=== PATIENT | male | born 1940 | race Caucasian/White ===

== ENCOUNTER → 2024-07-17 11:23 | Outpatient (REF) | payer MEDICARE, OTHER, SELFPAY ==
[2024-07-17 12:08] LABS: % Eosinophils 1.9 % (0-6); % Immature Granulocytes 0.3 % (0-0.5); % Lymphocytes 46.5 % (20.5-51.1); % Monocytes 10.1 % (1.7-9.3); % Neutrophils 40.2 % (42.2-75.2); Absolute Basophils 0.1 10^3/uL (0-0.2); Absolute Eosinophils 0.1 10^3/uL (0-0.7); Absolute Lymphocytes 2.9 10^3/uL (1.2-3.4); Absolute Monocytes 0.6 10^3/uL (0.1-0.6); Absolute Neutrophils 2.5 10^3/uL (1.4-6.5); Hemoglobin 13.7 g/dL (13.0-18.0); Mean Corp Hgb Conc. 33.4 g/dL (33.0-37.0); Mean Corpuscular Volume 83.7 fL (80.0-94.0); Mean Platelet Volume 8.9 fL (7.4-10.4); Nucleated Red Blood Cells % 0 % (-); Platelet Count 308 10^3/uL (130-400); Red Cell Dist. Width 13.6 % (11.5-14.5); White Blood Cell Count 6.2 10^3/uL (4.8-10.8)
[2024-07-17 12:58] LABS: ALT (SGPT) 16 U/L (0-50); AST (SGOT) 23 U/L (17-59); Albumin 4.4 g/dl (3.5-5.0); Alkaline Phosphatase 57 U/L (38-126); Blood Urea Nitrogen 11 mg/dl (9-20); Calcium 9.6 mg/dl (8.4-10.2); Carbon Dioxide 20 mmol/L (22-30); Chloride 98 mmol/L (98-107); Glucose 92 mg/dl (70-99); Iron 133 ug/dl (49-181); Potassium 4.7 mmol/L (3.5-5.1); Sodium 132 mmol/L (135-145); Total Bilirubin 0.9 mg/dl (0.2-1.3); Total Protein 7.4 g/dl (6.3-8.2); eGFR > 60.00
[2024-07-17 13:07] LABS: Percent Saturation 32 % (20-50); Total Iron Binding Capacity 405 ug/dl (261-462)
[2024-07-17 14:39] LABS: Vitamin D, 25-OH*** 13.5 ng/mL (30-80)
[2024-07-17 14:57] LABS: Ferritin 13.1 ng/ml (17.9-464.0)
== END ==
LOC: REG 11:23
PROVIDERS: ATTENDING PHYSICIAN Family Medicine
DX: D50.9 Iron deficiency anemia, unspecified (principal); G30.1 Alzheimer's disease with late onset; K21.9 Gastro-esophageal reflux disease without esophagitis; E55.9 Vitamin D deficiency, unspecified
CPT/HCPCS: 36415; 80053; 82306; 82728; 83540; 83550; 85025

== ENCOUNTER 2024-10-03 19:58 | Inpatient (IN) | payer MEDICARE, OTHER, SELFPAY ==
[2024-10-03 16:49] VITALS: BP 163/84
[2024-10-03 16:53] LABS: Glucose - Point of Care 121 mg/dl (70-99)
--- NOTE | 2024-10-03 16:55 | ED.CVA ---
History of Present Illness
General
Chief Complaint: CVA/TIA Symptoms
Source: ambulance crew
Exam Limitations: clinical condition and altered mental status
Time Seen by Provider: 10/03/24 16:50
Onset of Stroke Symptoms
Onset of symptoms known: No
Date of onset of symptoms: 10/03/24
Time pt last seen normal is known: Yes
Date last time pt seen normal: 10/03/24
Time last time pt seen normal: 14:00
History of Present Illness
History of Present Illness:
84-year-old male with dementia from [facility] apparently went down for nap around 2 PM woke up with right sided weakness and gaze preference, EMS was called for possible stroke they found him in a tonic-clonic seizure for 3 to 4 minutes given 5 mg of
IM Versed, stop seizing my evaluation sedated/postictal unable to offer much history
Review of Systems
Review of Systems
All Other Systems: Not applicable
Phy Exam
Physical Exam
Physical Exam:
Physical Exam
General: Sedated/postictal no overt signs of head or neck trauma
Neck: No jaundice
Heart: Regular
Lungs: no acute respiratory distress. clear bilaterally
Abdomen: Nontender
Neuro: Sedate/postictal does not localize to painful state
Skin: no rash
Psychiatric: Unable to assess
Extremities: no edema.
Course
Orders/Labs/Results
Orders:
Orders
10/03/24 16:49
EKG [Electrocardiogram (*1)] Urgent
Reason for Study: Hypertension, Benign
EKG- Treatment ONCE
10/03/24 16:50
Electrocardiogram (*1) Stat
Reason for Study: Other
Other Reason for Exam: neuro symptoms
CT Head & Neck Angio W/wo IV Urgent
Comment:
Reason For Exam: cva seizure
Cardiac Monitoring- Treatment ONCE
EKG- Treatment ONCE
IV Insert/Care/Rem.- Treatment PRN
Levetiracetam Injectable [Keppra] 1,500 mg IV NOW STA
10/03/24 16:51
CR Chest Portable - 1 View Urgent
Comment:
Reason For Exam: seizrue
Reason Study Needs to be Portable: Patient Unstable
10/03/24 17:00
Complete Blood Count/With Diff Urgent
Comprehensive Metabolic Panel Urgent
PTT Urgent
Prothrombin Time Urgent
10/03/24 17:36
ABG [Arterial Blood Gas] Urgent
%Oxygen/Room Air: 4
10/03/24 17:52
CT Brain Perfusion Urgent
Comment:
Reason For Exam: right sided weakness
Abnormal Lab Results
10/03/24 10/03/24 10/03/24
16:52 17:00 17:36
WBC 10.9 H 10^3/uL
(4.8-10.8)
MCH 26.9 L pg
(27.0-31.0)
MCHC 32.1 L g/dL
(33.0-37.0)
Abs Immat Gran (auto) 0.2 H 10^3/uL
(0-0.05)
Absolute Lymphs (auto) 4.9 H 10^3/uL
(1.2-3.4)
Absolute Monos (auto) 0.9 H 10^3/uL
(0.1-0.6)
Immature Gran % 1.5 H %
(0-0.5)
pH 7.24 L
(7.35-7.45)
pCO2 49 H mmHg
(35-48)
pO2 113 H mmHg
(83-108)
ABG O2 Sat (Measured) 98.7 H %
(94-98)
Sodium 132 L mmol/L
(135-145)
Carbon Dioxide 10 L* mmol/L
(22-30)
Glucose 119 H mg/dl
(70-99)
POC Glucose 121 H mg/dl
(70-99)
10/03/24 17:00
10/03/24 17:00
Vital Signs
Initial and Last Documented VS:
Initial Vital Signs
Temp Pulse Resp BP Pulse Ox
98.5 F 98 14 163/84 88
10/03/24 16:49 10/03/24 16:49 10/03/24 16:49 10/03/24 16:49 10/03/24 16:49
Last Documented Vital Signs
Temp Pulse Resp BP Pulse Ox
98.5 F 79 20 131/70 98
10/03/24 16:49 10/03/24 17:30 10/03/24 17:30 10/03/24 17:30 10/03/24 16:50
MDM/Problems Addressed
Differential Diagnosis Includes:
New onset seizure stroke intracerebral hemorrhage malignancy electrolyte abnormality
MDM/Problems Addressed:
Seizure right arm weakness
Chronic conditions affecting care: Neurological disorder
Acute Exacerbation and/or Progression of Chronic Illness: Neurological disorder
*Radiology
Radiology exam reviewed: radiology read reviewed
*Pulse Oximetry
Patient hypoxic: no
*EKG
Interpreted by ED Provider?: Yes
Interpretation: normal
Comparison EKG: no comparison EKG present
Heart Rate: 78
Rate: normal
Ischemia: no ischemia
*Marine Cargo Specialist Interpretation
Rate: normal
Interpretation: normal
Heart Rate: 78
Rhythm: sinus
*Critical Care Note
Total Time (30-74mins, 75-104mins- exclusive of procedures): 31
Update Note
Update Note:
5:50 PM patient reevaluated bedside with his somewhat more awake does appear to have right-sided weakness left gaze preference CT head and CT angiogram unremarkable briefly reviewed with neurology, will proceed with CT perfusion as he may be
a candidate for TNK
ED Attending Note
-
Portions of this chart may have been created with voice recognition software.� Occasional wrong word or��sound alike� substitutions may have occurred due to the inherent limitations of voice recognition software.
Discharge Plan
Departure
Prescriptions:
No Action
rivastigmine tartrate 1.5 mg Capsule
1.5 mg PO BID
sertraline 100 mg Tablet
100 mg PO QPM
pantoprazole 40 mg Tablet,Delayed Release (Dr/Ec)
40 mg PO QPM
risperidone 1 mg Tablet
0.5 mg PO QPM
memantine 28 mg Capsule,Sprinkle,Er 24hr
28 mg PO QPM
pantoprazole [Protonix] 40 mg Tablet,Delayed Release (Dr/Ec)
40 mg PO DAILY
Referrals:
Sachin Duncan DO [Family Provider] -
Interventions
Interventions:
*Risk Screen - Suicide Last Done: 10/03/24 16:49
*General Assessment Last Done: 10/03/24 16:49
*Neglect/Abuse Screening Last Done: 10/03/24 16:49
*ED COVID-19 Vaccine History Last Done: 10/03/24 17:46
ED- Pulmonary Assessment Last Done: 10/03/24 16:50
ED- Neurological Assessment Last Done: 10/03/24 16:50
ED- Cardiac Assessment Last Done: 10/03/24 16:50
ED Swallowing Screen Last Done: 10/03/24 16:50
Discharge Date and Time
Print Language: ALGERIAN
[2024-10-03 17:00] VITALS: BP 133/70
[2024-10-03] MEDS: KEPPRA 1500 MG IV (17:01)
[2024-10-03 17:08] LABS: % Eosinophils 0.8 % (0-6); % Immature Granulocytes 1.5 % (0-0.5); % Lymphocytes 45.2 % (20.5-51.1); % Neutrophils 43.5 % (42.2-75.2); Absolute Basophils 0.1 10^3/uL (0-0.2); Absolute Eosinophils 0.1 10^3/uL (0-0.7); Absolute Immature Granulocytes 0.2 10^3/uL (0-0.05); Absolute Lymphocytes 4.9 10^3/uL (1.2-3.4); Absolute Monocytes 0.9 10^3/uL (0.1-0.6); Absolute Neutrophils 4.7 10^3/uL (1.4-6.5); Hemoglobin 13.8 g/dL (13.0-18.0); Mean Corp Hgb Conc. 32.1 g/dL (33.0-37.0); Mean Corpuscular Hgb 26.9 pg (27.0-31.0); Mean Corpuscular Volume 83.8 fL (80.0-94.0); Mean Platelet Volume 9.2 fL (7.4-10.4); Nucleated Red Blood Cells % 0 % (-); Platelet Count 382 10^3/uL (130-400); Red Blood Cell Count 5.13 10^6/uL (4.70-6.10); Red Cell Dist. Width 13.8 % (11.5-14.5); White Blood Cell Count 10.9 10^3/uL (4.8-10.8)
[2024-10-03 17:15] VITALS: BP 131/71
[2024-10-03 17:16] LABS: INR 1.09; PT 14.4 Sec (11.4-14.6)
[2024-10-03 17:17] LABS: APTT 29.7 Sec (23.4-35.0)
[2024-10-03 17:30] VITALS: BP 131/70
[2024-10-03 17:36] LABS: AST (SGOT) 31 U/L (17-59); Albumin 4.7 g/dl (3.5-5.0); Alkaline Phosphatase 81 U/L (38-126); Blood Urea Nitrogen 11 mg/dl (9-20); Calcium 9.6 mg/dl (8.4-10.2); Carbon Dioxide 10 mmol/L (22-30); Chloride 99 mmol/L (98-107); Glucose 119 mg/dl (70-99); Potassium 4.4 mmol/L (3.5-5.1); Sodium 132 mmol/L (135-145); Total Bilirubin 0.7 mg/dl (0.2-1.3); Total Protein 8.2 g/dl (6.3-8.2); eGFR > 60.00
[2024-10-03 17:47] LABS: B.E. -6.5 mmol/L; O2 Saturation % 98.7 % (94-98); PCO2 49 mmHg (35-48); PO2 113 mmHg (83-108); pH 7.24 (7.35-7.45)
[2024-10-03 18:01] LABS: ALT (SGPT) 21 U/L (0-50)
--- NOTE | 2024-10-03 19:21 | HPS.HSE ---
Family Physician
-
Family Physician: Sachin Duncan, DO
Chief Complaint
-
seizure
History of Present Illness
84-year-old male past medical history of Alzheimer's, GERD, hiatal hernia, BPH, iron deficiency anemia, diverticulitis, presenting from [facility] for seizure. He went for a nap at 2 PM woke up with right-sided weakness and gaze preference. [facility] was
called for possible stroke and they found him to have a tonic-clonic seizure for 3 to 4 minutes was given 5 mg IM Versed.
No prior history of seizures. No prior history of strokes.
No family history of strokes or seizures.
Medical History
Past Medical History
Past Medical History: Reports Other (Alzheimer's, GERD, hiatal hernia, BPH, iron deficiency anemia, diverticulitis)
Past Surgical History: Reports None
Social History
Tobacco: Non-smoker
Alcohol: None
Drug: None
Family History
Family History: Not pertinent
Allergies / Home Medications
Allergies reflects when Allergies were last updated in [employer]
Home Medications with original date entered in [employer]
Allergy/Medication List:
Allergies
Allergy/AdvReac Type Severity Reaction Status Date / Time
tetracycline Allergy Rash Verified 09/13/23 06:39
Home Medications
memantine 28 mg capsule sprinkle,extended release 24hr 28 mg PO QPM Alzhemimer's dementia 06/25/23
pantoprazole 40 mg tablet,delayed release 40 mg PO QPM GERD 06/25/23
risperidone 1 mg tablet 0.5 mg PO QPM Alzhemimer's dementia 06/25/23
rivastigmine tartrate 1.5 mg capsule 1.5 mg PO BID Alzhemimer's dementia 06/25/23
sertraline 100 mg tablet 100 mg PO QPM Alzhemimer's dementia 06/25/23
pantoprazole 40 mg tablet,delayed release (Protonix) 40 mg PO DAILY 10/03/24
Review of Systems
-
History Source: Patient
A 12 point ROS was completed and negative except as noted: Yes
Constitutional: Reports No Symptoms
EENT: Reports No Symptoms
Respiratory: Reports No Symptoms
Cardiac: Reports No Symptoms
Abdomen/GI: Reports No Symptoms
: Reports No Symptoms
Musculoskeletal: Reports No Symptoms
Skin: Reports No Symptoms
Neurological: Reports No Symptoms
Endocrine: Reports No Symptoms
Hematologic/Lymphatic: Reports No Symptoms
Psych: Reports No Symptoms
Physical Exam
Vital Signs
Vital Signs
Temp Pulse Resp BP Pulse Ox
98.5 F 79 20 131/70 98
10/03/24 16:49 10/03/24 17:30 10/03/24 17:30 10/03/24 17:30 10/03/24 16:50
Physical Exam
General: Well Developed, Well Nourished and No Apparent Distress
HEENT: NormoCephalic, Moist mucous membranes and Atraumatic
Respiratory: Clear
Cardiac: S1/S2 and Regular Rhythm; No Murmur or Rub
GI: Soft, Non Tender, Non Distended and Normal Bowel Sounds; No Organomegaly
Rectal: Deferred by Provider
Musculoskeletal: No Clubbing, No Cyanosis and No Edema
Skin: No Rash
Neuro: Nonfocal/grossly intact
Laboratory Results
-
10/03/24 17:00
10/03/24 17:00
Laboratory Results
PT 14.4 Sec (11.4-14.6) 10/03/24 17:00
INR 1.09 10/03/24 17:00
APTT 29.7 Sec (23.4-35.0) 10/03/24 17:00
pH 7.24 (7.35-7.45) L 10/03/24 17:36
pCO2 49 mmHg (35-48) H 10/03/24 17:36
pO2 113 mmHg (83-108) H 10/03/24 17:36
HCO3 21.0 mmol/L (21-28) 10/03/24 17:36
Total Bilirubin 0.7 mg/dl (0.2-1.3) 10/03/24 17:00
AST 31 U/L (17-59) 10/03/24 17:00
ALT 21 U/L (0-50) 10/03/24 17:00
Alkaline Phosphatase 81 U/L (38-126) 10/03/24 17:00
Data Reviewed
-
Lab Data: Labs Reviewed by me
Old Records: Reviewed
Impression/Plan
-
IMPRESSION:
PLAN:
# Seizure
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
-Currently postictal but improving mental status
-Right side appears
-CTA shows no acute intracranial abnormality
-Keppra 1500 milligrams given, continue 500 twice daily
-Aspirin and Plavix
-Check MRI brain
-Neurology consulted
-N.p.o. for now
# Anion gap metabolic acidosis likely secondary to lactic acidosis from seizure
-Check lactate
-IV fluids
Alzheimer's dementia
-Continue memantine, rivastigmine, sertraline, Risperdal when able
-Hold rivastigmine, Risperdal for now
GERD/hiatal hernia
-Continue Protonix when able
BPH
Iron deficiency anemia
History of diverticulitis
DNR/DNI
DVT prophylaxis�SCDs
N.p.o.
[2024-10-03] MEDS: ASPIRIN 300 MG RECTAL (19:44)
--- NOTE | 2024-10-03 21:00 | PTCARENOTE ---
Pt admitted to rm 318-1 from ED. NIH score 15 upon admission. Responding verbally, however still aphasic (saying 'yes' and 'ok' in response but not always at appropriate times). Eyes tracking people on R side. Moving R arm spontaneously, however
still very weak. VSS. Tele in place, SR on monitor. EKG completed. IVF started as ordered. Owen present for admission and answered admission questions. Informed of POC and verbalized understanding.
[2024-10-03 21:30] VITALS: BP 153/88
[2024-10-03 23:00] VITALS: BP 153/88
[2024-10-03] MEDS: NSS 1000 IV (23:51)
[2024-10-03] MEDS: KEPPRA 500 MG IV (23:52)
[2024-10-04 03:00] VITALS: BP 135/65
[2024-10-04 06:08] VITALS: BP 163/68
--- NOTE | 2024-10-04 06:21 | W.PN.UPDATE ---
Update Note
Progress Note Update
Notified by nurse that pt rolled oob onto floor.
Pt does states he hit head. Pt admitted last jasmin for r/o cva vs seizure.
Actually per RN neuro check better than previous assessment. Still aphasic but now moving r arm better than before.
With help of myself and 2 nurses pt lifted back to bed. No other injuries noted.
Will get Ct head, continue neurochecks, if any changes in neurostatus will repeat ct head later
--- NOTE | 2024-10-04 06:30 | PTCARENOTE ---
Pt rolled out of bed on to floor on R side of bed. VSS. Neurocheck baseline, if not improved - pupils PERRLA, responding confused, moving R arm spontaneously. ASSEMBLING MACHINE OPERATOR notified of fall, pt did hit head, ordered stat CT. Pt assisted back to bed with 3
staff members and brought down to CT on stretcher. updated of events as well.
[2024-10-04 06:41] LABS: % Basophils 0.6 % (0-2); % Eosinophils 0.1 % (0-6); % Immature Granulocytes 0.5 % (0-0.5); % Lymphocytes 26.4 % (20.5-51.1); % Monocytes 11.2 % (1.7-9.3); % Neutrophils 61.2 % (42.2-75.2); Absolute Basophils 0.1 10^3/uL (0-0.2); Absolute Immature Granulocytes 0.1 10^3/uL (0-0.05); Absolute Lymphocytes 2.8 10^3/uL (1.2-3.4); Absolute Monocytes 1.2 10^3/uL (0.1-0.6); Absolute Neutrophils 6.4 10^3/uL (1.4-6.5); Hemoglobin 12.5 g/dL (13.0-18.0); Mean Corp Hgb Conc. 33.8 g/dL (33.0-37.0); Mean Corpuscular Hgb 27.2 pg (27.0-31.0); Mean Corpuscular Volume 80.4 fL (80.0-94.0); Mean Platelet Volume 9.1 fL (7.4-10.4); Nucleated Red Blood Cells % 0 % (-); Platelet Count 333 10^3/uL (130-400); Red Cell Dist. Width 13.7 % (11.5-14.5); White Blood Cell Count 10.5 10^3/uL (4.8-10.8)
[2024-10-04 06:47] LABS: Lactic Acid 1.1 mmol/L (0.7-2.0)
[2024-10-04 07:57] LABS: ALT (SGPT) 16 U/L (0-50); AST (SGOT) 28 U/L (17-59); Albumin 4.2 g/dl (3.5-5.0); Alkaline Phosphatase 73 U/L (38-126); Blood Urea Nitrogen 10 mg/dl (9-20); Calcium 8.9 mg/dl (8.4-10.2); Carbon Dioxide 21 mmol/L (22-30); Chloride 99 mmol/L (98-107); Glucose 96 mg/dl (70-99); Potassium 4.4 mmol/L (3.5-5.1); Sodium 130 mmol/L (135-145); Total Protein 6.9 g/dl (6.3-8.2); eGFR > 60.00
--- NOTE | 2024-10-04 08:16 | CON.NEURO ---
Neuro Assessment/Plan
Assessment
Abrupt onset aphasia and generalized tonic-clonic shaking in a patient with longstanding Alzheimer's dementia
Differential diagnosis based on the patient's examination suggesting continued worsening of baseline aphasia and suggested weakness in the right upper extremity greater than right lower extremity is acute ischemic stroke involving the left MCA
territory despite CT perfusion not demonstrating same. Differential diagnosis includes Dane's paralysis secondary to recurrent focal onset generalizing seizures.
Plan
Would replace the patient's levetiracetam with alternative medication due to possibility of agitation with the use of this medication should the patient demonstrate worsening agitation
Agree with initiation of aspirin and clopidogrel, maintain both for 21 days, then aspirin alone should the MRI of the brain confirmed acute ischemic stroke; otherwise discontinue both
Check MRI of brain without contrast
Provide lorazepam prior to MRI of brain
Check lipid profile
Check EEG to better determine if the patient is having recurrent seizures
Continue levetiracetam 500 mg twice a day
Continue patient's usual rivastigmine 1.5 mg twice a day
For now continue patient's memantine 28 mg nightly
Continue sertraline 100 mg/day for now
Rehabilitation evaluations
Medical educational materials to be provided
Restart vitamin D replacement
Will follow
Consultation
Order
Date of Consultation: 10/04/24
Requesting Provider: Hospitalists
Reason for Consult: Seizure
Subjective/Objective
Subjective Data
Date of Service: October 04, 2024
Adapted from my outpatient notes:
'05/2024
Reduced Risperdal from 1 mg to 0.5 at bedtime (watch for sleepiness)
12/2021
Occasional delusions
Memory even worse
Worsening inactivity
Memantine 10 mg twice a day to 28 mg once a day
Prior evaluation: presentation to PCP
Previous testing: blood work, MRI of brain in 06/2019, [employer] cognitive testing (02/2021, 77%)
Prior medication(s): OTC supplements (2019), Donepezil, Memantine, Rivastigmine; Quetiapine, Sertaline
Side-effects with medications: Donepezil, Quetiapine
Previous treatment(s): none
Frequency: multiple times per day --> minutes
Intensity: N/A
Duration: chronic ~ 06/2019
Duration of symptom: intermittent
Etiology: presumed Alzheimer's disease, moderately severe
Associated symptom(s): incorrect recall (false memory), short-term recall, irritability, lack of interest in prior interests, decline in financial ability, lost while driving, compulsive thoughts, mild agitation since 03/2024
Improving factors: Quetiapine
Worsening factors: later in day
Unchanged by factors: Rivastigmine
Severity: significant
~~~
Pattern:
'improved memory' according to patient
completed [employer] cognitive testing
lost for 1 hour while driving
Began (prior to initial evaluation in this office):
Started OTC supplements 12 months ago (2018)
Recall issues began 3-4 months ago (07/2019)
started on Donepezil by PCP then decline in mood then stopped then return of normal mood
'Dr. Demarco says that the results just show a senior brain.'
Followed by: presentation to this office
>> 01/2020
Started Memantine, some agitation in past month
Episodic 'spaced out' appearance with delay for response
>> 04/2020
Mild irritation
False memories intermittently
Worsening in evening
Repetitive questions
Lost while driving immediately prior to last visit
>> 07/2020
unable to tolerate increase in Rivastigmine
'went to [place] to visit' at [facility] then had agitation and hallucination during visit with repetitive thoughts and irritation
Started on Quetiapine 1 night ago without side-effects, didn't wander
>> 10/2020
stopped Quetiapine due to worsening agitation, replaced with Sertraline
all consuming thought
>> Today (01/06/2021)
Pt seen in the office today with his partner. He and his report that since his last appointment his hallucinations are much improved. As suggested they increased Sertraline to 100 mg, continued Namenda at 10 mg and started Risperdal 1 mg at
night. Episodes are less intense, less frequent and shorter. He has had no adverse effects of medications. Memory seems to be stable. He has no difficulty with sleeping. No recent falls. No headaches. No new complaints. With , patient less
information provider than .
>> 'improved memory' according to patient
completed [employer] cognitive testing
lost for 1 hour while driving
>> 03/2021
underwent new [employer] testing
increased lethargy and reduced agitation
>> 05/2021
Unable to titrate Rivastigmine, leading to dizziness and visual changes
Only twice had delusions
Worsening recall
Excessive sleepiness
>> With our RN PERINATAL (07/24/2021)
Patient seen in the office with his partner. He did not tolerate the reduction in sertraline. He became very agitated. He refused to use the rivastigmine patch. So partner continued Rivastigmine capsule 1.5 mg BID and restarted sertraline 100 mg. He
is stable but memory has continued to decline. He continues on Risperdal 1 mg at night. He has no recent falls.
>> 08/2021
Stable behavior
Delusions are milder and shorter in duration
Worsening memory overall, unable to recall prior day's events.'
Patient was reportedly in his usual state of health until after awakening from a nap, yesterday, he had right-sided weakness and gaze preference. The patient had a generalized tonic-clonic movement lasting approximately 3 minutes. There was no
bowel or bladder incontinence. No known tongue biting at the time. The patient has remained aphasic since that time. The patient otherwise was not experiencing aphasia and had been in his usual state of health without new medical changes recently.
Objective Data
Vital Signs
Temp Pulse Resp BP Pulse Ox
36.9 C 77 18 163/68 98
10/04/24 06:08 10/04/24 06:08 10/04/24 06:08 10/04/24 06:08 10/04/24 06:08
Lab Results
10/04/24 06:27
10/04/24 06:27
PT 14.4 Sec (11.4-14.6) 10/03/24 17:00
INR 1.09 10/03/24 17:00
APTT 29.7 Sec (23.4-35.0) 10/03/24 17:00
Sodium 130 mmol/L (135-145) L 10/04/24 06:27
Potassium 4.4 mmol/L (3.5-5.1) 10/04/24 06:27
BUN 10 mg/dl (9-20) 10/04/24 06:27
Glucose 96 mg/dl (70-99) 10/04/24 06:27
Calcium 8.9 mg/dl (8.4-10.2) 10/04/24 06:27
Patient Allergies
tetracycline Allergy (Verified 09/13/23 06:39)
Rash
Review of Systems
-
Unable to obtain full review of systems at this time due to: Dementia and Aphasia
History Source: Patient
All other systems: Reviewed and negative
Physical Exam
-
General: No Apparent Distress and Appears Stated Age
Eyes: Able to visualize OU, Round OU, [place] Conjunctivae and No Ptosis
HEENT: Anicteric and Moist Mucous Membranes
Neck: Full Range of Motion
Respiratory: No Dyspnea
Cardiac: No JVD
GI: Non-distended
Skin: Unremarkable
Extremities: No Clubbing, No Cyanosis and No Edema
Psych: Negative Intact Judgement/Insight
Extended Neurological Exam
Mood & Affect: Mood Unremarkable and Affect Unremarkable
Attention Span & Concentration: Awake, Alert, Interactive (Intermittently interactive), Unable to Perform 2 Step Request and Other (No difficulty with single step requests, when understood)
Memory: Unable to Assess (Due to aphasia)
Tremor: Hand Tremor Absent and Head Tremor Absent
Involuntary Movement: None
Speech: Quality Unremarkable, Severely Reduced Output and Other (Some preserved phrases, words produce which are not always associated with context)
Cranial Nerve II: Left Eye: Pupillary Reactivity Unremarkable, Pupillary Size Unremarkable and Visual Sorensen Grossly Intact
Cranial Nerve II: Right Eye: Pupillary Reactivity Unremarkable, Pupillary Size Unremarkable and Visual Sorensen Grossly Intact
Cranial Nerves III, IV, : Extraocular Movement: Grossly Intact
Cranial Nerve V: Facial Sensation: Unable to Assess
Cranial Nerve VII: Facial Symmetry: Normal Facial Symmetry
Cranial Nerve VIII: Hearing: Unremarkable Hearing to Normal Conversational Volume
Cranial Nerves IX, X: Palate Movement: Palate Elevation Symmetric
Cranial Nerve XI: Shoulder Shrug: Unremarkable
Cranial Nerve XII: Tongue Protusion: Midline
Muscle Strength, Overall: Full Throughout
Muscle Bulk & Tone: Bulk Unremarkable and Tone Unremarkable
Pronator Drift: Unable to Assess
Deep Tendon Reflexes: Trace Throughout
Cold Sensation: Unable to Assess
Vibration Sensation: Unable to Assess
Touch Sensation: Unremarkable
Coordination: Reaches for Objects without Difficulty
Babinski Sign: Absent Bilaterally
Gait & Station: Unable to Assess
Data Reviewed
-
CT-A: Report Reviewed
CT-Perfusion: Report Reviewed
CT Head: Report Reviewed and Image Reviewed
Labs: Report Reviewed
Reviewed with: Physician, Patient and Family
Old Records: Summarized
Medications
-
Active Medications
Generic Name Dose Route Start Last Admin
Trade Name Freq PRN Reason Stop Dose Admin
Sodium Chloride 1,000 mls @ 100 mls/hr 10/03/24 22:13 10/03/24 23:51
Nss IV 1,000 mls
.Q10H RAY Administration
Levetiracetam 500 mg 10/03/24 22:13 10/03/24 23:52
Levetiracetam (100 Mg/Ml) 500 Mg/5 Ml Vial IV 10/31/24 22:12 500 mg
Q12 RAY Administration
Non-Formulary Medication 28 mg 10/04/24 18:00
Memantine PO 11/01/24 17:59
QPM RAY
Pantoprazole Sodium 40 mg 10/04/24 18:00
Pantoprazole 40 Mg Delayed Release Tablet PO 11/01/24 17:59
BID@0800,1800 RAY
Sertraline HCl 100 mg 10/04/24 18:00
Sertraline 100 Mg Tablet PO 11/01/24 17:59
QPM RAY
Sodium Chloride 0 flush 10/03/24 23:00
Sodium Chloride 0.9% (Flush) Syringe IV 10/31/24 22:59
PER PROTOCOL RAY
Home Medications
�Medication �Instructions �Recorded
memantine 28 mg capsule 28 mg PO QPM Alzhemimer's dementia 06/25/23
sprinkle,extended release 24hr
pantoprazole 40 mg tablet,delayed 40 mg PO QPM GERD 06/25/23
release
risperidone 1 mg tablet 0.5 mg PO QPM Alzhemimer's dementia 06/25/23
rivastigmine tartrate 1.5 mg 1.5 mg PO BID Alzhemimer's dementia 06/25/23
capsule
sertraline 100 mg tablet 100 mg PO QPM Alzhemimer's dementia 06/25/23
pantoprazole 40 mg tablet,delayed 40 mg PO DAILY Gastrointestinal 10/03/24
release (Protonix) Issue
Past History
Past History
ED Past Medical History: GERD and Other (Dementia, erectile dysfunction, BPH, iron deficiency anemia, vitamin D deficiency, diverticulosis, colovesical fistula)
ED Past Surgical History: Other (Inguinal herniorrhaphy, left hydrocelectomy, sigmoidectomy 2023)
Social History
Tobacco: Non-smoker
Alcohol: Occasional
Drug: None
Personal:
Living: with family
Employment: Retired
Family History
Family History: Other (Reviewed and noncontributory)
[2024-10-04 08:30] VITALS: BP 130/63
[2024-10-04] MEDS: KEPPRA 500 MG IV ×2 (08:50→20:33)
[2024-10-04] MEDS: NSS 1000 IV ×2 (08:50→17:26)
[2024-10-04] MEDS: ATIVAN 1 MG IV (11:03)
[2024-10-04 11:47] LABS: HDL Cholesterol 61 mg/dl; LDL Cholesterol, Calculated 89 mg/dl; Total Cholesterol 172 mg/dl (50-199); Triglyceride 111 mg/dl (10-149); Very Low Density Lipoprotein 22 mg/dl (0-30)
--- NOTE | 2024-10-04 13:48 | W.PN.HOSP.TC ---
Today's Communication/Plan
-
Follow MRI of the brain
Follow speech therapy eval-start on a diet once cleared
Continue with Keppra and dual antiplatelet agents for now.
Assessment / Plan
Assessment / Plan
# New onset Seizure
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
-Currently with improved mental status but is aphasic and has a right-sided weakness
-CTA shows no acute intracranial abnormality
-cw Keppra 500 twice daily
-cw Aspirin and Plavix till MRI brain is back
-Check MRI brain
-Neurology input noted
-N.p.o. till seen by speech
# Anion gap metabolic acidosis likely secondary from seizure
- lactate ok
- Almost resolved
# Hyponatremia -Euvolemic
Check urine lytes
TSH/Cortisol
Mild in nature -follow for now
Alzheimer's dementia
-Continue memantine, rivastigmine, sertraline, Risperdal when able
-Hold rivastigmine, Risperdal for now
GERD/hiatal hernia
-Continue Protonix when able
BPH
Iron deficiency anemia
History of diverticulitis
DNR/DNI
DVT prophylaxis�SCDs
N.p.o.
DW RN
DW Neuro today
Total time spent on today's encounter was 52 minutes which included time spent in counseling the patient/family regarding diagnosis and treatment plan as listed above, goals of care, and symptom management. Case was discussed with nursing staff,
specialists, and care coordinators/case management. All labs and imaging personally reviewed by me. Remainder the time spent in detailed review of previous records, lab data, imaging, and other medical provider documentation.
Anticipated Discharge: > 48 hours
Subjective/Interval History
-
Date of Service: October 04, 2024
Patient is alert but aphasic.
Still having right-sided weakness.
No further seizures witnessed.
Objective Data
-
Labs:
Laboratory Results
10/04/24
06:27
WBC 10.5
Hgb 12.5 L
Hct 37.0 L
Plt Count 333
Sodium 130 L
Potassium 4.4
Chloride 99
Carbon Dioxide 21 L
BUN 10
Creatinine 0.6 L
Glucose 96
Calcium 8.9
Total Bilirubin 1.0
AST 28
ALT 16
Alkaline Phosphatase 73
Vital Signs:
Vital Signs
Temp Pulse Resp BP Pulse Ox
97.8 F 61 18 130/63 98
10/04/24 08:30 10/04/24 08:30 10/04/24 08:30 10/04/24 08:30 10/04/24 08:30
Review of Systems
-
Unable to obtain full review of systems at this time due to: Other (due to expressive aphasia)
Physical Exam
-
General: Comfortable
Respiratory: Clear to Auscultation and Non Labored Respirations; Negative Accessory Resp Muscle Use
Cardiac: Regular Rhythm and S1/S2; Negative Tachycardic
GI: Soft
Neuro: Awake, Alert, No Motor Deficits (Right hemiparesis arm more than the leg) and Other (Expressive aphasia)
Psych: Calm
Data Reviewed
-
Labs: Labs Reviewed by me
--- NOTE | 2024-10-04 14:59 | CM ---
Met with patient's spouse, Owen to obtain information for assessment. He stated that patient lives with him in the [facility]. He described patient as independent with all ADLs, personal care, dressing and bathing. He
ambulates independently without device. 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 Owen stated that patient has fci memory but short term has been a struggle.
Patient has no DME.
He has never been to a SNF or had VN services.
Patient has a prescription plan and uses, [facility] in [place] for all of his medications.
His PCP is, Sachin Duncan.
Patient's spouse is agreeable to SNF if indicated. Or VN. Will advise him of medical staff's indication.
Plan: Case management will continue to follow and assist with discharge planning. SNF vrs VN.
--- NOTE | 2024-10-04 16:12 | PTOTSP ---
Speech therapy
Presentation: Patient's speech was limited and consisted of mainly jargon. Patient was able to clearly stated his first name and . Patient could not follow commands; despite ample cues and assistance. Patient appeared to gaze to the right often
throughout the session.
Swallowing Function: SALSA DANCE INSTRUCTOR attempted ample times to trial thins and puree via tsp in which patient refused to accept trials. Patient opened his oral cavity for an ice chip but immediately closed his mouth refusing to trial ice chip. SALSA DANCE INSTRUCTOR used verbal,
tactile, and stimulating cues in hopes to probe patient to accept the bolus trial. Patient was unable to follow commands.
Given the above, recommend NPO at this time as patient is not appropriate for PO at this time. Once patient's alertness and ability to follow commands, trial PO.
Recommendations:
1) NPO
2) Medications as tolerated
Plan: SALSA DANCE INSTRUCTOR will continue to follow to trial PO; pending hospitalization.
[2024-10-04] MEDS: ZOLOFT PO (16:17)
[2024-10-04] MEDS: PROTONIX PO (16:17)
[2024-10-04] MEDS: EXELON PO ×2 (16:17→20:33)
[2024-10-04 16:21] VITALS: BP 137/62
[2024-10-04 19:05] VITALS: BP 151/64
[2024-10-04] MEDS: RISPERDAL M-TAB (ORALLY DISINTEGRATING) 0.5 MG PO (22:56)
[2024-10-04] MEDS: TYLENOL/FEVERALL 650 MG RECTAL (22:57)
[2024-10-04 23:03] VITALS: BP 153/63
[2024-10-05] VITALS (8 sets, daily range): BP systolic 141–163; BP diastolic 68–84; PULSE 64; O2SAT 98
--- NOTE | 2024-10-05 02:45 | PTCARENOTE ---
Patient increasingly restless, attempting to get OOB. House COGNOS ANALYST notified, bilateral soft limb restraints/ 4 rails ordered and applied.
[2024-10-05] MEDS: ATIVAN 0.5 MG IV (03:31)
[2024-10-05] MEDS: NSS (PRESERVATIVE FREE) 0.5 ML IV (03:32)
--- NOTE | 2024-10-05 03:32 | PTCARENOTE ---
IV Ativan administered for increasing agitation and restlessness.
[2024-10-05] MEDS: NSS IV (06:05)
[2024-10-05 08:11] LABS: Blood Urea Nitrogen 15 mg/dl (9-20); Calcium 8.5 mg/dl (8.4-10.2); Carbon Dioxide 22 mmol/L (22-30); Chloride 105 mmol/L (98-107); Glucose 84 mg/dl (70-99); Potassium 4.1 mmol/L (3.5-5.1); Sodium 132 mmol/L (135-145); eGFR > 60.00
[2024-10-05] MEDS: VITAMIN D3 (cholecalciferol) PO (08:37)
[2024-10-05] MEDS: EXELON PO (08:37)
[2024-10-05] MEDS: PROTONIX PO (08:37)
[2024-10-05] MEDS: KEPPRA 500 MG IV (08:37)
[2024-10-05 08:42] LABS: Cortisol, Random 5.5 ug/dl; TSH 0.97 uIU/ml (0.47-4.68)
--- NOTE | 2024-10-05 09:14 | EEG.RPT ---
Electroencephalogram Report
Recording
Date of EE10/05/24
Type of EEG: Routine
Done with Video Recording: Yes
Patient Status: Inpatient
Recording Conditions: Awake and Drowsy
Hyperventilation Performed: No
Photic Stimulation Performed: Yes
Report
Background: continuous generalized slowing, polymorphic theta activity. +spontaneous variability. +reactivity.
Sleep: none
focal/rhythmic/epileptiform: none
seizures: none
Photic stim: no background change
Impression: continuous generalized slowing
Clinical correlation: mild generalized cerebral dysfunction
--- NOTE | 2024-10-05 09:52 | PTOTSP ---
Dysphagia Therapy
Impression: Moderate oral dysphagia impacted by acute cognitive changes. No signs of pharyngeal dysphagia. Communication significantly impaired with perseverative verbal responses and no auditory command following. Baseline unknown but reportedly
in independent living at [facility] with history of dementia.
Plan of care:
1. Initiate IDDSI Level 4 Puree, Thin diet
2. Strategies: PO only when awake/alert, 1:1 supervision/assistance, single sips/bites, slow rate, liquid wash as needed, reflux precautions
3. Medications: crushed in puree if medically cleared
4. Oral care 3x daily
5. Dysphagia tx to determine if/when diet advancement appropriate.
[2024-10-05] MEDS: NAMENDA PO (10:30)
--- NOTE | 2024-10-05 13:15 | W.PN.NEURO.1 ---
Today's Communication / Plan
-
dc Aspirin Plavix and Keppra
no further work up anticipated
Neuro Assessment/Plan
Assessment
Abrupt onset aphasia and generalized tonic-clonic shaking in a patient with longstanding Alzheimer's dementia
dx first time seizure
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
EEG showing background slowing
Plan
First time seizure without MRI or EEG findings to suggest high risk for more seizures, no Keppra needed
No stroke, does not need aspirin/plavix
Continue patient's usual rivastigmine 1.5 mg twice a day
For now continue patient's memantine 28 mg nightly
Continue sertraline 100 mg/day for now
Rehabilitation evaluations
Medical educational materials to be provided
Restart vitamin D replacement
likely d/c tomorrow after allowing for Keppra to be eliminated, though no further workup or medication changes are anticipated.
Subjective/Objective
Subjective Data
Date of Service: October 05, 2024
delirious, ranges from lethargy to agitation
no further seizures
Objective Data
Vital Signs
Temp Pulse Resp BP Pulse Ox
36.7 C 56 16 142/74 96
10/05/24 11:05 10/05/24 11:05 10/05/24 11:05 10/05/24 11:05 10/05/24 11:05
Lab Results
10/04/24 06:27
10/05/24 07:34
PT 14.4 Sec (11.4-14.6) 10/03/24 17:00
INR 1.09 10/03/24 17:00
APTT 29.7 Sec (23.4-35.0) 10/03/24 17:00
Sodium 132 mmol/L (135-145) L 10/05/24 07:34
Potassium 4.1 mmol/L (3.5-5.1) 10/05/24 07:34
BUN 15 mg/dl (9-20) 10/05/24 07:34
Glucose 84 mg/dl (70-99) 10/05/24 07:34
Calcium 8.5 mg/dl (8.4-10.2) 10/05/24 07:34
LDL Cholesterol, Calc Cancelled 10/04/24 10:44
Patient Allergies
tetracycline Allergy (Verified 09/13/23 06:39)
Rash
Physical Exam
-
Awake, attends bilaterally, minimally verbal, presently calm
moving all ext, does not follow commands or answer appropriately.
--- NOTE | 2024-10-05 16:45 | CM ---
Patient and spouse seen at bedside. Patient described as aggitated by patient spouse. CM will reach out to [facility] and review options. PT/OT assessment is for SNF. CM will continue to follow for discharge planning needs.
Plan; SNF recommendation [facility] is bed available.
--- NOTE | 2024-10-05 18:07 | W.PN.HOSP.TC ---
Addendum entered and electronically signed by Galilea Barth MD 10/05/24 19:15:
I saw and evaluated the patient independently. I reviewed the resident�s note and agree with findings and plan as documented by Dr. Eaton.
GENERAL: well developed, well nourished, male in no apparent distress
HEENT: NC/AT
HEART: regular rate and rhythm, +S1, +S2, WILLARD
LUNGS : clear to auscultation bilaterally
ABDOM: soft, nontender, nondistended, + bowel sounds
EXT: no cyanosis, clubbing, or edema
NEUROLOGIC: aphasic
New onset seizure (witnessed tonic clonic) with Right-sided weakness and gaze preference c/w Dane's paralysis and post ictal state--no evidence of stroke on imaging studies--apprec neuro--No indication for DAPT given no evidence of stroke, or Keppra
given new onset seizure. All discontinued---Continue to observe neuro status as Keppra washout (perhaps aphasia will resolve)--spouse states not at baseline--does have dementia and no short term memory but otherwise is normal--Appreciate speech
therapy --pur�ed diet with thin liquids
Anion gap metabolic acidosis--Likely secondary to seizure, resolved.
Hyponatremia--Mild, euvolemic--TSH, cortisol normal
Alzheimer's dementia--Spouse at bedside, confirms that aphasia is not patient's baseline. Pt baseline with impaired short-term memory, otherwise no significant neuro deficits--Continue memantine, rivastigmine, sertraline--Behavioral disturbance
noted, continue risperidone HS
GERD/hiatal hernia--Continue Protonix when able
Vit D deficiency--Continue Vit D
BPH
Iron deficiency anemia
History of diverticulitis
code status --DNR/DNI
DVT proph�Lovenox
Original Note:
Today's Communication/Plan
-
Keppra and DAPT discontinued. Monitor neuro status.
Assessment / Plan
Assessment / Plan
Right-sided weakness and gaze preference
New onset seizure
- Prolonged postictal state/Dane's paralysis.
-Unlikely CVA given normal CT and MRI
-Neurostatus appears to be slowly improving. Awake and alert with significant aphasia, unable to follow instructions or answer questions. Right upper extremity weakness appears improved/resolved. Appears to still have right lower extremity weakness
-Appreciate neuro recs. No indication for DAPT given no evidence of stroke, or Keppra given new onset seizure. All discontinued.
-Continue to observe neuro status as Keppra washout
-Appreciate speech therapy --pur�ed diet with thin liquids
Anion gap metabolic acidosis:
Likely secondary to seizure, resolved.
Hyponatremia:
Mild, euvolemic
TSH, cortisol normal
- monitor
Alzheimer's dementia
Spouse at bedside, confirms that aphasia is not patient's baseline. Pt baseline with impaired short-term memory, otherwise no significant neurodeficits.
-Continue memantine, rivastigmine, sertraline
-Behavioral disturbance noted, continue risperidone HS
GERD/hiatal hernia
-Continue Protonix when able
Vit D deficiency:
-Continue Vit D
BPH
Iron deficiency anemia
History of diverticulitis
DNR/DNI
DVT prophylaxis�Lovenox
Anticipated Discharge: 24 - 48 hours
Subjective/Interval History
-
Date of Service: October 05, 2024
Remarkably aphasic. No overnight events
Objective Data
-
Labs:
Laboratory Results
10/05/24
07:34
Sodium 132 L
Potassium 4.1
Chloride 105
Carbon Dioxide 22
BUN 15
Creatinine 0.6 L
Glucose 84
Calcium 8.5
Vital Signs:
Vital Signs
Temp Pulse Resp BP Pulse Ox
97.4 F 84 19 163/84 98
10/05/24 15:05 10/05/24 15:05 10/05/24 15:05 10/05/24 15:05 10/05/24 15:05
I&O
10/04/24 10/05/24 10/06/24
06:59 06:59 06:59
Intake Total 1200 / 1200
Balance 1200 / 1200
Review of Systems
-
Unable to obtain full review of systems at this time due to: Acuity (Aphasia)
Physical Exam
-
General: No Apparent Distress
HEENT: Normocephalic, Atraumatic, Anicteric and PERRLA
Respiratory: Clear to Auscultation and Non Labored Respirations; Negative Wheezes, Rales or Rhonchi
Cardiac: Regular Rhythm and S1/S2; Negative Murmur
GI: Soft, Nontender, Nondistended and Normal Bowel Sounds
Musculoskeletal: No Edema
Skin: Warm and Dry
Neuro: Awake, Alert and Other (Bilateral right upper extremity with equal strength. Unable to assess rest of neuro status given aphasia); Negative Oriented or Facial Droop
[2024-10-05] MEDS: ZOLOFT 100 MG PO (18:25)
[2024-10-05] MEDS: PROTONIX 40 MG PO (18:26)
[2024-10-05] MEDS: LOVENOX 40 MG SC (20:09)
[2024-10-05] MEDS: NAMENDA 10 MG PO (20:09)
[2024-10-05] MEDS: EXELON 1.5 MG PO (20:09)
[2024-10-05] MEDS: RISPERDAL 0.5 MG PO (22:43)
[2024-10-06] VITALS (7 sets, daily range): BP systolic 134–160; BP diastolic 68–82; PULSE 83–85; O2SAT 95
[2024-10-06 08:35] LABS: Blood Urea Nitrogen 15 mg/dl (9-20); Calcium 9.1 mg/dl (8.4-10.2); Carbon Dioxide 19 mmol/L (22-30); Chloride 103 mmol/L (98-107); Estimated Creatinine Clearance 97 ml/min; Glucose 82 mg/dl (70-99); Potassium 4.3 mmol/L (3.5-5.1); Sodium 135 mmol/L (135-145); eGFR > 60.00
[2024-10-06] MEDS: PROTONIX 40 MG PO ×2 (08:57→17:15)
[2024-10-06] MEDS: VITAMIN D3 (cholecalciferol) 125 MCG PO (08:57)
[2024-10-06] MEDS: NAMENDA 10 MG PO ×2 (08:57→19:59)
[2024-10-06] MEDS: EXELON 1.5 MG PO ×2 (08:57→19:59)
--- NOTE | 2024-10-06 12:40 | PTOTSP ---
Dysphagia Therapy
Impression: Mild oral dysphagia impacted by acute cognitive changes. No signs of pharyngeal dysphagia.
Communication slightly improved but signs of mixed aphasia persist and patient not at baseline.
Plan of care:
1. Advance to IDDSI Level 6 Soft/Bite Sized, Thin diet
2. Strategies: PO only when awake/alert, 1:1 supervision/assistance, single sips/bites, slow rate, liquid wash as needed, reflux precautions
3. Medications: crushed in puree if medically cleared
4. Oral care 3x daily
5. Dysphagia tx to determine if/when diet advancement appropriate.
6. Speech/language evaluation if aphasia does not resolve s/p seizure.
[2024-10-06] MEDS: RISPERDAL 0.25 MG PO (14:18)
--- NOTE | 2024-10-06 16:28 | CM ---
Patient seen at bedside with physician. Patient agitated and psych consulted. CM will continue to follow for discharge planning needs.
Plan; home with spouse.
[2024-10-06] MEDS: ZOLOFT 100 MG PO (17:15)
[2024-10-06] MEDS: LOVENOX 40 MG SC (17:15)
--- NOTE | 2024-10-06 17:56 | W.PN.HOSP.TC ---
Addendum entered and electronically signed by Galilea Barth MD 10/06/24 20:56:
I saw and evaluated the patient independently. I reviewed the resident�s note and agree with findings and plan as documented by Dr. Eaton.
GENERAL: well developed, well nourished, male in no apparent distress
HEENT: NC/AT
HEART: regular rate and rhythm, +S1, +S2, WILLARD
LUNGS : clear to auscultation bilaterally
ABDOM: soft, nontender, nondistended, + bowel sounds
EXT: no cyanosis, clubbing, or edema
NEUROLOGIC: aphasic
New onset seizure (witnessed tonic clonic) with Right-sided weakness and gaze preference c/w Dane's paralysis and post ictal state--no evidence of stroke on imaging studies--apprec neuro--No indication for DAPT given no evidence of stroke, or Keppra
given new onset seizure. All discontinued---Continue to observe neuro status as Keppra washout (perhaps aphasia will resolve)--spouse states not at baseline--does have dementia and no short term memory but otherwise is normal--Appreciate speech
therapy --pur�ed diet with thin liquids--pt seems to act like a stroke but imaging neg, will repeat MRI
Anion gap metabolic acidosis--Likely secondary to seizure, resolved.
Hyponatremia--Mild, euvolemic--TSH, cortisol normal
Alzheimer's dementia--Spouse at bedside, confirms that aphasia is not patient's baseline. Pt baseline with impaired short-term memory, otherwise no significant neuro deficits--Continue memantine, rivastigmine, sertraline--Behavioral disturbance
noted, stop risperidone HS--change to ativan PRN--await psych input
GERD/hiatal hernia--Continue Protonix when able
Vit D deficiency--Continue Vit D
BPH
Iron deficiency anemia
History of diverticulitis
code status --DNR/DNI
DVT proph�Lovenox
Original Note:
Today's Communication/Plan
-
Monitor neuro status, Ativan PRN
Discharge planning
Assessment / Plan
Assessment / Plan
Right-sided weakness and gaze preference
New onset seizure
-Prolonged postictal state/Dane's paralysis.
-Unlikely CVA given normal CT and MRI
-Neurostatus appears to be waxing and waning. Awake and alert with improving aphasia, however pt is intermittently confused and agitated
-Appreciate neuro recs. No indication for DAPT given no evidence of stroke, or Keppra given new onset seizure. All discontinued. Continue to observe neuro status as Keppra washout
-Appreciate psych recs - Risperidone HS and PRN discontinued. Start PRN Ativan
-Appreciate speech therapy -- soft bite-sized diet.
- Telemetry discontinued
Anion gap metabolic acidosis:
Likely secondary to seizure, resolved.
Hyponatremia:
Mild, euvolemic
TSH, cortisol normal
- monitor
Alzheimer's dementia
Spouse at bedside, confirms that aphasia is not patient's baseline. Pt baseline with impaired short-term memory, otherwise no significant neurodeficits at baseline
-Continue memantine, rivastigmine, sertraline
-Behavioral disturbance noted, prn Ativan per psych recs
GERD/hiatal hernia
-Continue Protonix when able
Vit D deficiency:
-Continue Vit D
BPH
Iron deficiency anemia
History of diverticulitis
DNR/DNI
DVT prophylaxis�Lovenox
Anticipated Discharge: Within 24 hours
Subjective/Interval History
-
Date of Service: October 06, 2024
No reported agitation overnight. No acute events
Objective Data
-
Labs:
Laboratory Results
10/06/24
07:24
Sodium 135
Potassium 4.3
Chloride 103
Carbon Dioxide 19 L
BUN 15
Creatinine 0.6 L
Glucose 82
Calcium 9.1
Vital Signs:
Vital Signs
Temp Pulse Resp BP Pulse Ox
100.1 F 70 18 141/71 94
10/06/24 14:54 10/06/24 14:54 10/06/24 14:54 10/06/24 14:54 10/06/24 14:54
I&O
10/05/24 10/06/24 10/07/24
06:59 06:59 06:59
Intake Total 1200 / 1200 0 / 0
Balance 1200 / 1200 0 / 0
Review of Systems
-
Unable to obtain full review of systems at this time due to: Acuity (altered mental status)
Physical Exam
-
General: Well Nourished and Other (appears to be in mental distress)
HEENT: Normocephalic, Atraumatic and Moist Mucous Membranes
Respiratory: Clear to Auscultation and Non Labored Respirations; Negative Wheezes, Rales, Rhonchi or Crackles
Cardiac: Regular Rhythm and S1/S2; Negative Murmur, Rub or Calf Tenderness
GI: Soft, Nontender, Nondistended and Normal Bowel Sounds
Musculoskeletal: No Cyanosis and No Edema
Skin: Warm and Dry
Neuro: Awake, Alert and Other (moving all extremities, ); Negative Oriented
Psych: Confused and Agitated
[2024-10-06] MEDS: NSS (PRESERVATIVE FREE) 0.125 ML IV (18:25)
[2024-10-06] MEDS: ATIVAN 0.25 MG IV (18:26)
--- NOTE | 2024-10-06 18:33 | PTCARENOTE ---
Pt continuously agitated throughout shift. Pt. keeps trying to get up out of bed and will not listen to simple instructions to stay in bed. Four point restraints orders around 1500. Pt. received dose of Risperdal and seemed to calm down. At around
1700, this nurse tried trial pt. off of four points by taking off his leg restraints. However, pt. at 1800 began getting agitated again and trying to get out of bed. Try to reorient pt. and keep in bed but would not listen. Pt. placed back in four
point restraints. PRN Ativan given. Will continue to assess and try to reorient pt.
[2024-10-07 07:05] VITALS: BP 160/73
[2024-10-07 07:40] LABS: Hematocrit 37.2 % (39.0-52.0); Hemoglobin 12.5 g/dL (13.0-18.0); Mean Corp Hgb Conc. 33.6 g/dL (33.0-37.0); Mean Corpuscular Hgb 26.9 pg (27.0-31.0); Mean Corpuscular Volume 80.2 fL (80.0-94.0); Mean Platelet Volume 9.5 fL (7.4-10.4); Platelet Count 314 10^3/uL (130-400); Red Blood Cell Count 4.64 10^6/uL (4.70-6.10); Red Cell Dist. Width 13.8 % (11.5-14.5); White Blood Cell Count 7.5 10^3/uL (4.8-10.8)
[2024-10-07 08:22] LABS: Blood Urea Nitrogen 16 mg/dl (9-20); Carbon Dioxide 19 mmol/L (22-30); Chloride 102 mmol/L (98-107); Estimated Creatinine Clearance 97 ml/min; Glucose 100 mg/dl (70-99); Magnesium 2.1 mg/dl (1.6-2.3); Potassium 3.5 mmol/L (3.5-5.1); Sodium 132 mmol/L (135-145); eGFR > 60.00
[2024-10-07 09:17] LABS: Folate 6.7 ng/ml (2.76-20); Vitamin B12 391 pg/ml (239-931)
[2024-10-07] MEDS: NAMENDA 10 MG PO ×2 (09:30→20:18)
[2024-10-07] MEDS: VITAMIN D3 (cholecalciferol) 125 MCG PO (09:30)
[2024-10-07] MEDS: EXELON 1.5 MG PO ×2 (09:30→20:18)
[2024-10-07] MEDS: PROTONIX 40 MG PO ×2 (09:30→17:05)
--- NOTE | 2024-10-07 12:42 | CS.PSYCHR ---
Consult Summary - Psychiatry
-
Pt is an 84 yo male, with hx of Alzheimer's dementia, who presented with abrupt decline in mental status, reportedly woke from a nap at 2 PM with right-sided weakness and gaze preference. EMS was called for possible stroke and they found him to
have a tonic-clonic seizure for 3 to 4 minutes was given 5 mg IM Versed. Since admission, pt has had behavior disturbance/agitation, trying to get out of bed/leave. Pt seen with his . Pt awake/alert, answers only 'yeah', not able to
express anything or converse. reports this is an abrupt decline; states pt was doing okay, able to do ADL's, able to converse, somewhat oriented, able to go out to restaurants.
Psych hx: denied other than dementia; followed by Dr Redman, who prescribes Memantine, Rivastigmine, Sertraline, Risperidone
SH: resides at [facility] living with - they have been together for 58 years. Pt enjoys 1950's music
MSE: resting in bed, in soft restraints, awake/alert, makes eye contact. Answering only 'yeah, yeah'. No signs of psychosis, no agitation, affect pleasant. Insight limited
Imp: Alzheimer's dementia, with behavior disturbance
R/o delirium. Abrupt worsening of mental status of unclear etiology
Rec: would continue outpatient medications, including Risperidone 0.5 mg in PM. Would continue prn Ativan
Will follow
[2024-10-07] MEDS: ATIVAN 0.25 MG IV (14:42)
[2024-10-07] MEDS: NSS (PRESERVATIVE FREE) 0.125 ML IV (14:43)
--- NOTE | 2024-10-07 14:49 | W.PN.HOSP.TC ---
Addendum entered and electronically signed by Galilea Barth MD 10/07/24 15:52:
I saw and evaluated the patient independently. I reviewed the resident�s note and agree with findings and plan as documented by Dr. Eaton.
GENERAL: well developed, well nourished, male in no apparent distress
HEENT: NC/AT
HEART: regular rate and rhythm, +S1, +S2, WILLARD
LUNGS : clear to auscultation bilaterally
ABDOM: soft, nontender, nondistended, + bowel sounds
EXT: no cyanosis, clubbing, or edema
NEUROLOGIC: aphasic--states yeah, yeah only when asked any questions--cannot speak in full sentences
New onset seizure (witnessed tonic clonic) with Right-sided weakness and gaze preference c/w Dane's paralysis and post ictal state--no evidence of stroke on imaging studies, will repeat MRI--apprec neuro, would like re-evaluation--No indication for
DAPT given no evidence of stroke, or Keppra given new onset seizure. All discontinued---Continue to observe neuro status as Keppra washout (perhaps aphasia will resolve but has not yet)--spouse states not at baseline--does have dementia and no
short term memory but otherwise is normal--Appreciate speech therapy --pur�ed diet with thin liquids--pt seems to act like a stroke but imaging neg, will repeat MRI--will ask PM&R for eval
Anion gap metabolic acidosis--Likely secondary to seizure, resolved.
Hyponatremia--Mild, euvolemic--TSH, cortisol normal
Alzheimer's dementia--Spouse at bedside, confirms that aphasia is not patient's baseline. Pt baseline with impaired short-term memory, otherwise no significant neuro deficits--Continue memantine, rivastigmine, sertraline--Behavioral disturbance
noted, restart risperidone HS (outpt med)--change to ativan PRN--apprec psych input
GERD/hiatal hernia--Continue Protonix when able
Vit D deficiency--Continue Vit D
BPH
Iron deficiency anemia
History of diverticulitis
code status --DNR/DNI
DVT proph�Lovenox
Original Note:
Today's Communication/Plan
-
MRI today
Assessment / Plan
Assessment / Plan
Right-sided weakness and gaze preference:
New onset seizure:
-Unlikely Prolonged postictal state given multiple days of symptoms
-Unlikely CVA given normal CT and MRI
-Neurostatus appears to be waxing and waning. Aphasia present with intermittent confusion/agitation
-DAPT and keppra discontinued, with ongoing symptoms.
-Will repeat MRI
-Check urinalysis
-Appreciate neuro recs.
-PRN Ativan per psych recs, with soft restraints for agitation
-Appreciate speech therapy -- soft bite-sized diet.
-Acute rehab evaluation
Anion gap metabolic acidosis:
Likely secondary to seizure, resolved.
Hyponatremia:
Mild, euvolemic
TSH, cortisol normal
- monitor
Alzheimer's dementia
Spouse at bedside, confirms that aphasia is not patient's baseline. Pt baseline with impaired short-term memory, otherwise no significant neurodeficits at baseline
-Continue memantine, rivastigmine, sertraline
-Behavioral disturbance noted, prn Ativan per psych recs
GERD/hiatal hernia
-Continue Protonix
Vit D deficiency:
-Continue Vit D
Vit B12 deficiency:
-B12 391
- Supplement
BPH
Iron deficiency anemia
History of diverticulitis
DNR/DNI
DVT prophylaxis�Lovenox
Anticipated Discharge: 24 - 48 hours
Subjective/Interval History
-
Date of Service: October 07, 2024
Objective Data
-
Labs:
Laboratory Results
10/07/24
07:17
WBC 7.5
Hgb 12.5 L
Hct 37.2 L
Plt Count 314
Sodium 132 L
Potassium 3.5
Chloride 102
Carbon Dioxide 19 L
BUN 16
Creatinine 0.5 L
Glucose 100 H
Calcium 9.0
Vital Signs:
Vital Signs
Temp Pulse Resp BP Pulse Ox
98.1 F 61 18 160/73 97
10/07/24 07:05 10/07/24 07:05 10/07/24 07:05 10/07/24 07:05 10/07/24 10:52
I&O
10/06/24 10/07/24 10/08/24
06:59 06:59 06:59
Intake Total 0 / 0
Balance 0 / 0
Review of Systems
-
Unable to obtain full review of systems at this time due to: Dementia and Acuity
Physical Exam
-
General: Well Developed, Well Nourished and No Apparent Distress
HEENT: Atraumatic
Respiratory: Clear to Auscultation and Non Labored Respirations; Negative Wheezes, Rales, Rhonchi or Crackles
Cardiac: Regular Rhythm and S1/S2; Negative Murmur or Rub
GI: Soft, Nontender, Nondistended and Normal Bowel Sounds
Skin: Warm and Dry
Neuro: Awake, Alert and Other (aphasic); Negative Oriented
Psych: Calm
[2024-10-07 15:05] VITALS: BP 133/75
[2024-10-07] MEDS: RISPERDAL 0.5 MG PO (17:05)
[2024-10-07] MEDS: ZOLOFT 100 MG PO (17:05)
[2024-10-07] MEDS: LOVENOX 40 MG SC (17:06)
[2024-10-07 17:12] LABS: Urine Albumin 2+ (Neg - Trace); Urine Bilirubin Negative (Negative); Urine Character Clear (Clear); Urine Color Amber; Urine Glucose 1+ (Negative); Urine Ketone Negative (Negative); Urine Leukocyte Negative (Negative); Urine Nitrite Negative (Negative); Urine Occult Blood 4+ (Negative); Urine Specific Gravity 1.025 (<1.030); Urine Urobilinogen Negative (Neg - 1+)
--- NOTE | 2024-10-07 17:14 | W.PN.NEURO.1 ---
Today's Communication / Plan
-
mentation slowly improving, Keppra has essentially washed out. In someone with significant underlying neurological disorders, they can be post ictal for a week. I do not believe continued hospital admission is making things better, but neither is
Reginald well enough to go back to their independent apartment at [facility]. In speaking with Reginald's , it sounds like he may be better off cared for at the [facility] at [facility] until he can go home.
Neuro Assessment/Plan
Assessment
Abrupt onset aphasia and generalized tonic-clonic shaking in a patient with longstanding Alzheimer's dementia
dx first time seizure
MRI 10/04 showing Left mesial temporal FLAIR intensity without DWI/ADC abnormality consistent with recent seizure, Todds paralysis with right sided weakness now improved.
on repeat MRI 10/07 this abnormality is resolved.
EEG showing background slowing
Plan
First time seizure without MRI or EEG findings to suggest high risk for more seizures, risk of further seizures ~20%, no Keppra needed
No stroke, does not need aspirin/plavix
Continue patient's usual rivastigmine 1.5 mg twice a day
For now continue patient's memantine 28 mg nightly
Continue sertraline 100 mg/day for now
mentation slowly improving, Keppra has essentially washed out. In someone with significant underlying neurological disorders, they can be post ictal for a week. I do not believe continued hospital admission is making things better, but neither is
Reginald well enough to go back to their independent apartment at [facility]. In speaking with Reginald's , it sounds like he may be better off cared for at the [facility] at [facility] until he can go home.
Subjective/Objective
Subjective Data
Date of Service: October 07, 2024
spoke with Reginald and her at bedside
seems like he is slowly getting better over the past few days though not back to baseline
intermittently restless, trying to get oob, on soft restraints
Objective Data
Vital Signs
Temp Pulse Resp BP Pulse Ox
37.3 C 74 18 133/75 97
10/07/24 15:05 10/07/24 15:05 10/07/24 15:05 10/07/24 15:05 10/07/24 15:05
Lab Results
10/07/24 07:17
10/07/24 07:17
PT 14.4 Sec (11.4-14.6) 10/03/24 17:00
INR 1.09 10/03/24 17:00
APTT 29.7 Sec (23.4-35.0) 10/03/24 17:00
Sodium 132 mmol/L (135-145) L 10/07/24 07:17
Potassium 3.5 mmol/L (3.5-5.1) 10/07/24 07:17
BUN 16 mg/dl (9-20) 10/07/24 07:17
Glucose 100 mg/dl (70-99) H 10/07/24 07:17
Calcium 9.0 mg/dl (8.4-10.2) 10/07/24 07:17
LDL Cholesterol, Calc Cancelled 10/04/24 10:44
Vitamin B12 391 pg/ml (239-931) 10/07/24 07:17
Patient Allergies
tetracycline Allergy (Verified 09/13/23 06:39)
Rash
Physical Exam
-
Awake, attends bilaterally, calm
moving all ext, following simple commands and giving 1-2 word answers
[2024-10-07 17:48] VITALS: BP 181/85
[2024-10-07 17:58] LABS: Urine Mucus Moderate; Urine Squamous Cell 0-2 /LPF (Few)
[2024-10-07 17:59] LABS: Urine Red Blood Cell >100 /HPF (0-2); Urine White Cell 0-2 /HPF (0-5)
[2024-10-07 23:10] VITALS: BP 140/77
[2024-10-08 07:30] VITALS: BP 165/81
[2024-10-08 07:49] LABS: ALT (SGPT) 18 U/L (0-50); AST (SGOT) 31 U/L (17-59); Albumin 3.6 g/dl (3.5-5.0); Alkaline Phosphatase 68 U/L (38-126); Blood Urea Nitrogen 12 mg/dl (9-20); Calcium 8.8 mg/dl (8.4-10.2); Carbon Dioxide 23 mmol/L (22-30); Chloride 101 mmol/L (98-107); Estimated Creatinine Clearance 97 ml/min; Glucose 106 mg/dl (70-99); Magnesium 1.9 mg/dl (1.6-2.3); Potassium 3.6 mmol/L (3.5-5.1); Sodium 132 mmol/L (135-145); Total Bilirubin 1.1 mg/dl (0.2-1.3); Total Protein 6.4 g/dl (6.3-8.2); eGFR > 60.00
[2024-10-08 07:55] LABS: % Basophils 0.9 % (0-2); % Eosinophils 2.1 % (0-6); % Immature Granulocytes 0.6 % (0-0.5); % Lymphocytes 19.4 % (20.5-51.1); % Monocytes 12.3 % (1.7-9.3); % Neutrophils 64.7 % (42.2-75.2); Absolute Basophils 0.1 10^3/uL (0-0.2); Absolute Eosinophils 0.2 10^3/uL (0-0.7); Absolute Immature Granulocytes 0.1 10^3/uL (0-0.05); Absolute Lymphocytes 1.6 10^3/uL (1.2-3.4); Absolute Neutrophils 5.3 10^3/uL (1.4-6.5); Hemoglobin 12.7 g/dL (13.0-18.0); Mean Corp Hgb Conc. 33.4 g/dL (33.0-37.0); Mean Corpuscular Hgb 26.5 pg (27.0-31.0); Mean Corpuscular Volume 79.2 fL (80.0-94.0); Mean Platelet Volume 9.3 fL (7.4-10.4); Nucleated Red Blood Cells % 0 % (-); Platelet Count 347 10^3/uL (130-400); Red Cell Dist. Width 13.8 % (11.5-14.5); White Blood Cell Count 8.2 10^3/uL (4.8-10.8)
[2024-10-08] MEDS: PROTONIX 40 MG PO ×2 (08:51→17:18)
[2024-10-08] MEDS: EXELON 1.5 MG PO ×2 (08:52→20:45)
[2024-10-08] MEDS: VITAMIN D3 (cholecalciferol) 125 MCG PO (08:52)
[2024-10-08] MEDS: NAMENDA 10 MG PO ×2 (08:53→20:40)
--- NOTE | 2024-10-08 13:13 | W.PN.HOSP.TC ---
Addendum entered and electronically signed by Galilea Barth MD 10/08/24 16:39:
I saw and evaluated the patient independently. I reviewed the resident�s note and agree with findings and plan as documented by Dr. Eaton.
GENERAL: well developed, well nourished, male in no apparent distress
HEENT: NC/AT
HEART: regular rate and rhythm, +S1, +S2, WILLARD
LUNGS : clear to auscultation bilaterally
ABDOM: soft, nontender, nondistended, + bowel sounds
EXT: no cyanosis, clubbing, or edema
NEUROLOGIC: aphasia improving--c/o back pain
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
given no evidence of stroke, or Keppra given new onset seizure. All discontinued---Continue to observe neuro status as Keppra washout (perhaps aphasia will resolve but has not yet)--spouse states not at baseline--does have dementia and no short
term memory but otherwise is normal--Appreciate speech therapy --pur�ed diet with thin liquids--await PM&R eval
Anion gap metabolic acidosis--Likely secondary to seizure, resolved.
Hyponatremia--Mild, euvolemic--TSH, cortisol normal
Alzheimer's dementia--Spouse at bedside, confirms that aphasia is not patient's baseline. Pt baseline with impaired short-term memory, otherwise no significant neuro deficits--Continue memantine, rivastigmine, sertraline--Behavioral disturbance
noted, restart risperidone HS (outpt med)--change to ativan PRN--apprec psych input
back pain--complains with movement--add lidoderm patch to lower back
GERD/hiatal hernia--Continue Protonix when able
Vit D deficiency--Continue Vit D
BPH
Iron deficiency anemia
History of diverticulitis
code status --DNR/DNI
DVT proph�Lovenox
Original Note:
Today's Communication/Plan
-
Trial off soft restraints
Rehab evaluation
Assessment / Plan
Assessment / Plan
Right-sided weakness and gaze preference:
New onset seizure:
-Unlikely Prolonged postictal state given multiple days of symptoms
-Unlikely CVA given normal CT and MRI
-Neurostatus appears to be waxing and waning. Aphasia present with intermittent confusion/agitation
-DAPT and keppra discontinued, with ongoing symptoms. Improved mental status today
-Repeat MRI with no acute changes
-Urinalysis normal
-Appreciate neuro recs.
-PRN Ativan per psych recs, with soft restraints for agitation, will trial off when possible
-Appreciate speech therapy -- soft bite-sized diet.
-Acute rehab evaluation. He may benefit from [facility] discharge
Anion gap metabolic acidosis:
Likely secondary to seizure, resolved.
Hyponatremia:
Mild, euvolemic
TSH, cortisol normal
- monitor
Alzheimer's dementia
Spouse at bedside, confirms that aphasia is not patient's baseline. Pt baseline with impaired short-term memory, otherwise no significant neurodeficits at baseline
-Continue memantine, rivastigmine, sertraline
-Behavioral disturbance noted, prn Ativan per psych recs
GERD/hiatal hernia
-Continue Protonix
Vit D deficiency:
-Continue Vit D
Vit B12 deficiency:
-B12 391
- Supplement
BPH
Iron deficiency anemia
History of diverticulitis
DNR/DNI
DVT prophylaxis�Lovenox
Anticipated Discharge: Within 24 hours
Subjective/Interval History
-
Date of Service: October 08, 2024
Pt with improved mental status, able to answer questions. Has no complaints.
Objective Data
-
Labs:
Laboratory Results
10/08/24
07:07
WBC 8.2
Hgb 12.7 L
Hct 38.0 L
Plt Count 347
Sodium 132 L
Potassium 3.6
Chloride 101
Carbon Dioxide 23
BUN 12
Creatinine 0.5 L
Glucose 106 H
Calcium 8.8
Total Bilirubin 1.1
AST 31
ALT 18
Alkaline Phosphatase 68
Vital Signs:
Vital Signs
Temp Pulse Resp BP Pulse Ox
97.8 F 84 18 165/81 96
10/08/24 12:11 10/08/24 12:11 10/08/24 12:11 10/08/24 07:30 10/08/24 12:11
I&O
10/07/24 10/08/24 10/09/24
06:59 06:59 06:59
Intake Total 1080 / 1080
Output Total 600 / 600
Balance 480 / 480
Review of Systems
-
Unable to obtain full review of systems at this time due to: Dementia and Acuity
Cardiac: Denies Chest Pain
Abdomen/GI: Denies Abdominal Pain
Physical Exam
-
General: No Apparent Distress and Comfortable
HEENT: Atraumatic; Negative Moist Mucous Membranes
Respiratory: Non Labored Respirations and Decreased Breath Sounds (Right lower lobes)
Cardiac: Regular Rhythm and S1/S2; Negative Murmur, Rub or Calf Tenderness
GI: Soft, Nontender, Nondistended and Normal Bowel Sounds
Musculoskeletal: No Clubbing, No Cyanosis and No Edema
Skin: Warm and Dry
Neuro: Oriented (Oriented to person and place) and Other (Asleep, easily rousable. Answers questions )
Psych: Calm and Confused (mildly confused)
[2024-10-08] MEDS: VITAMIN B-12 1000 MCG PO (14:16)
--- NOTE | 2024-10-08 14:33 | W.PN.NEURO.1 ---
Today's Communication / Plan
-
visual hallucinations start Seroquel 12.5 PRN, and if this persists as an outpatient he should be evaluated for Parkinson's as the cause of this
Neuro Assessment/Plan
Assessment
Abrupt onset aphasia and generalized tonic-clonic shaking in a patient with longstanding Alzheimer's dementia
dx first time seizure
MRI 10/04 showing Left mesial temporal FLAIR intensity without DWI/ADC abnormality consistent with recent seizure, Todds paralysis with right sided weakness now improved.
on repeat MRI 10/07 this abnormality is resolved.
EEG showing background slowing
Plan
First time seizure without MRI or EEG findings to suggest high risk for more seizures, risk of further seizures ~20%, no Keppra needed
No stroke, does not need aspirin/plavix
Continue patient's usual rivastigmine 1.5 mg twice a day
For now continue patient's memantine 28 mg nightly
Continue sertraline 100 mg/day for now
visual hallucinations start Seroquel 12.5 PRN, and if this persists as an outpatient he should be evaluated for Parkinson's as the cause of this
mentation slowly improving, Keppra has essentially washed out. In someone with significant underlying neurological disorders, they can be post ictal for a week. I do not believe continued hospital admission is making things better, but neither is
Reginald well enough to go back to their independent apartment at [facility]. In speaking with Reginald's , it sounds like he may be better off cared for at the health center at [facility] until he can go home.
Subjective/Objective
Subjective Data
Date of Service: October 08, 2024
mentating better, talking more
complains bugs crawling on him
reports that patient has been hallucinating
Objective Data
Vital Signs
Temp Pulse Resp BP Pulse Ox
36.6 C 84 18 165/81 96
10/08/24 12:11 10/08/24 12:11 10/08/24 12:11 10/08/24 07:30 10/08/24 12:11
Lab Results
10/08/24 07:07
10/08/24 07:07
PT 14.4 Sec (11.4-14.6) 10/03/24 17:00
INR 1.09 10/03/24 17:00
APTT 29.7 Sec (23.4-35.0) 10/03/24 17:00
Sodium 132 mmol/L (135-145) L 10/08/24 07:07
Potassium 3.6 mmol/L (3.5-5.1) 10/08/24 07:07
BUN 12 mg/dl (9-20) 10/08/24 07:07
Glucose 106 mg/dl (70-99) H 10/08/24 07:07
Calcium 8.8 mg/dl (8.4-10.2) 10/08/24 07:07
LDL Cholesterol, Calc Cancelled 10/04/24 10:44
Vitamin B12 391 pg/ml (239-931) 10/07/24 07:17
Patient Allergies
tetracycline Allergy (Verified 09/13/23 06:39)
Rash
Physical Exam
-
Awake, attends bilaterally, calm
moving all ext, following simple commands and answering simple questions
[2024-10-08] MEDS: TYLENOL 1000 MG PO (14:57)
[2024-10-08] MEDS: SEROQUEL 12.5 MG PO (14:58)
--- NOTE | 2024-10-08 15:00 | PTCARENOTE ---
Patient actively hallucinating, earlier kept seeing 'pills and pill bottle' on floor. Now seeing ants crawling on the bed and on the floor. Will give PRN Seroquel per Neurology.
--- NOTE | 2024-10-08 15:37 | CM ---
Patient seen at bedside with physician and patient spouse. Patient seeing things today per spouse and c/o of pain in back. Patient spouse updated by physician and CM sent referral to [facility] and awaiting PM&R assessment to determine if [facility] is
appropriate level of care. CM will continue to follow for discharge planning needs.
Plan; SNF vs [facility].
[2024-10-08 16:00] VITALS: BP 155/80
[2024-10-08] MEDS: ATIVAN 0.25 MG IV (16:06)
--- NOTE | 2024-10-08 16:15 | CON.MD ---
Documented by User: Janet Hines PA-C 10/08/24 16:46
Consultation - Medical
-
Referring Provider:�Galilea Farias
Chief Complaint:�Debility, seizure
�
History of Present Illness:�Patient is a 84-year-old male with PMH of (Alzheimer's, dementia, GERD, BPH, diverticulitis, iron deficiency anemia, hiatal hernia) who presented to the hospital from [place] after waking up from a nap with right-sided
weakness, abrupt onset aphasia and gaze preference. His EMS was called for possible stroke.They found him in a tonic�clonic seizure for 3 to 4 minutes. Was given 5 mg IM Versed. No prior history of seizures. No prior history of strokes. Was
initially started on Keppra 500 mg twice a day and Plavix and aspirin pending brain MRI. MRI showed left mesial temporal FLAIR intensity without DWI/ADC abnormality consistent with recent seizure, Dane's paralysis with right-sided weakness now
improved. EEG showing background slowing.
per [id number] seizure without MRI or EEG findings to suggest high risk for more seizures, no Keppra needed. Since no stroke shown on MRI does not need aspirin and Plavix.
mentation slowly improving, Keppra has essentially washed out. In someone with significant underlying neurological disorders, they can be post ictal for a week. Neurostatus appears to be waxing and waning. Aphasia present with intermittent
confusion/agitation. On soft restraints
Past Medical History:�Alzheimer's, dementia, GERD, BPH, diverticulitis, hiatal hernia, vitamin D deficiency, vitamin B12 deficiency, iron deficiency anemia
Procedure History:�none
Family History:�non contributory
�
Social History:�
Functional Level Premorbidly:�Independent with all activities�
Functional Level Currently:�Bed mobility�max assist, rolling�mod assist, transfer�mod assist, perseveration, ADLs-�max assist,
�
Tobacco:�Denies�
Alcohol:�Denies�
Drug use:�Denies�
�
Lives with:�Spouse- Owen
24-hour assistance available:�yes
Number of floors:�1
# steps to enter:�
# steps to second floor: none
Potential First floor set up:�yes
Driving:�no
Occupation:�retired
�
�
Allergies:�
Allergy/AdvReac Type Severity Reaction Status Date / Time
tetracycline Allergy Rash Verified 09/13/23 06:39
�
Review of Systems:�
Constitutional: (x) Normal _
Eye: (x) Normal _
Ear/Nose/Throat: (x) Normal _
Respiratory: (x) Normal _
Cardiovascular: (x) Normal _
Gastrointestinal: (x) abNormal _GERD, hiatal hernia, diverticulitis
Genitourinary: (x) abNormal _BPH,
Musculoskeletal: (x) Normal _
Integumentary: (x) Normal _
Neurologic: (x) Normal _
Psychiatric: (x) abNormal _hallucinations, dementia, Alzheimer's, agitation,
Endocrine: (x) Normal _
Hematologic/Lymphatic: (x) abNormal _iron deficiency, anemia,
Allergic/Immunologic: (x) Normal _
�
Medications:�
Active Current Visit Medication List
Category Date Time Status
0.9% Sodium Chloride [Nss (Preservative Free)] Med 10/06/24 16:28 Active
0.125 ml IV Q4HPRN PRN
Acetaminophen [Tylenol/Feverall] Med 10/04/24 22:35 Active
650 mg RECTAL Q4HPRN PRN
Acetaminophen [Tylenol] Med 10/08/24 13:38 Ordered
1,000 mg PO Q6HPRN PRN
Acetaminophen [Tylenol] Med 10/08/24 13:38 Ordered
650 mg PO Q4HPRN PRN
Cholecalciferol (Vitamin D3) [VITAMIN D3 ( Med 10/05/24 08:00 Active
cholecalciferol)]
125 mcg PO DAILY
Cyanocobalamin [Vitamin B-12] Med 10/08/24 14:00 Active
1,000 mcg PO DAILY
Enoxaparin Sodium [Lovenox] Med 10/05/24 19:00 Active
40 mg SC QPM
Flush (0.9% Sodium Chloride) [Flush (Nss)] Med 10/03/24 23:00 Active
See Dose Instructions IV PER PROTOCOL
Lorazepam [Ativan] Med 10/06/24 15:54 Active
0.25 mg IV Q4HPRN PRN
Memantine HCl [Namenda] Med 10/05/24 10:00 Active
10 mg PO BID
Pantoprazole [Protonix] Med 10/04/24 18:00 Active
40 mg PO BID@0800,1800
Risperidone [Risperdal] Med 10/07/24 18:00 Active
0.5 mg PO DAILY@1800
Rivastigmine Tartrate [Exelon] Med 10/04/24 13:00 Active
1.5 mg PO BID
Sertraline HCl [Zoloft] Med 10/04/24 18:00 Active
100 mg PO QPM
�
Vitals:�
Temp Pulse Resp BP Pulse Ox
97.8 F 84 18 165/81 96
10/08/24 12:11 10/08/24 12:11 10/08/24 12:11 10/08/24 07:30 10/08/24 12:11
Height 5 ft 7 in
Actual Weight 87.7 kg
Body Mass Index (BMI) 0.0
�
Physical Exam:�
General Appearance/Observation: Well-developed, well-nourished individual in no apparent distress in bed and in restraints.�
Pain/Comfort Assessment: unable to assess
Mood/Affect: confused�
�
Integumentary/Operative Site:�
�� Pressure Ulcer Evaluation: absent over heels.�
��
�� Other Type of Wound: absent�
��
�
Eyes: Conjunctiva/Lids: normal���� Pupils: pupils equal round
Ears/Nose/Throat: oral mucosa moist,� throat clear.������������ Lips/Teeth/Gums: normal�
Cardiovascular: Heart: regular, no murmur�
Respiratory: Respiratory Effort/Chest Expansion: normal������� Auscultation: Clear to auscultation bilaterally�
Gastrointestinal: abdomen not tender, no distension, normal abdominal bowel sounds
Extremities:�Edema: None�Cyanosis: None�Trophic�changes: None
�
Neurology Exam:
Orientation: confused, disoriented, Asking if this is Owen, also talking to self, saying ' I am going to call the police someone stole my car'
Memory: Impaired
Comprehension: confused
Two step command: confused
Naming:not able to assess
Cranial Nerves:
�� not orientated, unable to assess
Musculoskeletal: moving legs and arms
Lab Results
Labs
WBC 8.2 10^3/uL (4.8-10.8) 10/08/24 07:07
RBC 4.80 10^6/uL (4.70-6.10) 10/08/24 07:07
Hgb 12.7 g/dL (13.0-18.0) L 10/08/24 07:07
Hct 38.0 % (39.0-52.0) L 10/08/24 07:07
MCV 79.2 fL (80.0-94.0) L 10/08/24 07:07
MCH 26.5 pg (27.0-31.0) L 10/08/24 07:07
MCHC 33.4 g/dL (33.0-37.0) 10/08/24 07:07
RDW 13.8 % (11.5-14.5) 10/08/24 07:07
Plt Count 347 10^3/uL (130-400) 10/08/24 07:07
MPV 9.3 fL (7.4-10.4) 10/08/24 07:07
Abs Immat Gran (auto) 0.1 10^3/uL (0-0.05) H 10/08/24 07:07
Absolute Neuts (auto) 5.3 10^3/uL (1.4-6.5) 10/08/24 07:07
Absolute Lymphs (auto) 1.6 10^3/uL (1.2-3.4) 10/08/24 07:07
Absolute Monos (auto) 1.0 10^3/uL (0.1-0.6) H 10/08/24 07:07
Absolute Eos (auto) 0.2 10^3/uL (0-0.7) 10/08/24 07:07
Absolute Basos (auto) 0.1 10^3/uL (0-0.2) 10/08/24 07:07
Immature Gran % 0.6 % (0-0.5) H 10/08/24 07:07
Neutrophils % 64.7 % (42.2-75.2) 10/08/24 07:07
Lymphocytes % 19.4 % (20.5-51.1) L 10/08/24 07:07
Monocytes % 12.3 % (1.7-9.3) H 10/08/24 07:07
Eosinophils % 2.1 % (0-6) 10/08/24 07:07
Basophils % 0.9 % (0-2) 10/08/24 07:07
Nucleated RBC % 0 % (-) 10/08/24 07:07
PT 14.4 Sec (11.4-14.6) 10/03/24 17:00
INR 1.09 10/03/24 17:00
APTT 29.7 Sec (23.4-35.0) 10/03/24 17:00
pH 7.24 (7.35-7.45) L 10/03/24 17:36
pCO2 49 mmHg (35-48) H 10/03/24 17:36
pO2 113 mmHg (83-108) H 10/03/24 17:36
HCO3 21.0 mmol/L (21-28) 10/03/24 17:36
Base Excess -6.5 mmol/L 10/03/24 17:36
ABG O2 Sat (Measured) 98.7 % (94-98) H 10/03/24 17:36
O2 Delivery Level 10/03/24 17:36
Sodium 132 mmol/L (135-145) L 10/08/24 07:07
Potassium 3.6 mmol/L (3.5-5.1) 10/08/24 07:07
Chloride 101 mmol/L (98-107) 10/08/24 07:07
Carbon Dioxide 23 mmol/L (22-30) 10/08/24 07:07
BUN 12 mg/dl (9-20) 10/08/24 07:07
Creatinine 0.5 mg/dL (0.7-1.3) L 10/08/24 07:07
Estimated Creat Clear 97 ml/min 10/08/24 07:07
eGFR > 60.00 10/08/24 07:07
Glucose 106 mg/dl (70-99) H 10/08/24 07:07
Lactic Acid 1.1 mmol/L (0.7-2.0) 10/04/24 06:27
Calcium 8.8 mg/dl (8.4-10.2) 10/08/24 07:07
Magnesium 1.9 mg/dl (1.6-2.3) 10/08/24 07:07
Total Bilirubin 1.1 mg/dl (0.2-1.3) 10/08/24 07:07
AST 31 U/L (17-59) 10/08/24 07:07
ALT 18 U/L (0-50) 10/08/24 07:07
Alkaline Phosphatase 68 U/L (38-126) 10/08/24 07:07
Total Protein 6.4 g/dl (6.3-8.2) 10/08/24 07:07
Albumin 3.6 g/dl (3.5-5.0) 10/08/24 07:07
Triglycerides Cancelled 10/04/24 10:44
Total Cholesterol Cancelled 10/04/24 10:44
LDL Cholesterol, Calc Cancelled 10/04/24 10:44
VLDL Cholesterol, Calc Cancelled 10/04/24 10:44
HDL Cholesterol Cancelled 10/04/24 10:44
Vitamin B12 391 pg/ml (239-931) 10/07/24 07:17
Folate 6.7 ng/ml (2.76-20) 10/07/24 07:17
TSH 0.97 uIU/ml (0.47-4.68) 10/05/24 07:34
Random Cortisol 5.5 ug/dl 10/05/24 07:34
Urine Color Rocio 10/07/24 16:51
Urine Clarity Clear (Clear) 10/07/24 16:51
Urine pH 6.0 (5.0-9.0) 10/07/24 16:51
Ur Specific [place] 1.025 (<1.030) 10/07/24 16:51
Urine Ketones Negative (Negative) 10/07/24 16:51
Ur Occult Blood Reflex 4+ (Negative) A 10/07/24 16:51
Urine Nitrite (Reflex) Negative (Negative) 10/07/24 16:51
Urine Bilirubin Negative (Negative) 10/07/24 16:51
Urine Urobilinogen Negative (Neg - 1+) 10/07/24 16:51
Leukocyte Esterase Rfl Negative (Negative) 10/07/24 16:51
Urine RBC >100 /HPF (0-2) A 10/07/24 16:51
Urine WBC (Reflex) 0-2 /HPF (0-5) 10/07/24 16:51
Ur Squamous Epith Cells 0-2 /LPF (Few) 10/07/24 16:51
Urine Mucus Moderate 10/07/24 16:51
Urine Glucose 1+ (Negative) A 10/07/24 16:51
Urine Albumin (Reflex) 2+ (Neg - Trace) A 10/07/24 16:51
POC Glucose 121 mg/dl (70-99) H 10/03/24 16:52
�
Diagnostic Results:�as per HPI�
MRI of brain , 10/07- no acute intracranial abnormality noted.
CT scan of Head - 10/04- No evidence of acute intracranial abnormality.
Chest x-ray�10/01/24-Bibasilar atelectasis. Prominence of the pulmonary vascular markings
Assessment: Patient is a 84-year-old male with PMH of (Alzheimer's, dementia, GERD, BPH, diverticulitis, iron deficiency anemia, hiatal hernia) with new onset seizure and confusion/agitation
�
Plan�
�PT/OT to increase independence with ADLs, improve balance, coordination, endurance, strength, mobility, community reintegration, decreased burden of care on others and family education.�
Seizure: First time seizure without MRI or EEG findings to suggest high risk for more seizures, risk of further seizures ~20%, no Keppra needed Continue Keppra monitor seizures, seizure precautions�Anemia: Likely multifactorial.� Continue to
monitor.��
Psych/Alzheimer's dementia/anxiety: Continue patient's usual rivastigmine 1.5 mg twice a day. memantine 28 mg nightly, sertraline 100 mg/day for now. Ativan 0.25mg IV q 4 hours prn. Psychology consult.� Monitor mood,
Hyponatremia: Mild, euvolemic
Vit D deficiency: Continue Vit D
Skin: monitor for pressure sores/rashes/lesions.�
Pain: acetaminophen as needed.�
Bowel: Colace and Senna, PRN bisacodyl.�
Bladder: Time void, PVRs, PRN straight cath.�
GI Prophylaxis/hiatal hernia: Pantoprazole�40mg qd
DVT Prophylaxis:mechanical and Lovenox 40mg qpm
Pulmonary: Incentive spirometry�
Safety: Continue to reinforce assistance with all transfers.�
Code: DNR�
Dispo�(date/plan/equipment needs): Home with family care.� Social history reviewed.�
�
Functional and Medical Goals:�Modified Independent with ADL�s, ambulation, transfers�
�
Discharge Destination:�SNF
��
Thank you for allowing me to care for your patient. Please contact me with any questions or concerns.

Documented by User: Jose Guadalupe Johnston MD 10/08/24 17:32
Consultation - Medical
-
Referring Provider:�Galilea Farias
Chief Complaint:�Debility, seizure
�
History of Present Illness:�Patient is a 84-year-old male with PMH of (Alzheimer's, dementia, GERD, BPH, diverticulitis, iron deficiency anemia, hiatal hernia) who presented to the hospital from [place] after waking up from a nap with right-sided
weakness, abrupt onset aphasia and gaze preference. His EMS was called for possible stroke.They found him in a tonic�clonic seizure for 3 to 4 minutes. Was given 5 mg IM Versed. No prior history of seizures. No prior history of strokes. Was
initially started on Keppra 500 mg twice a day and Plavix and aspirin pending brain MRI. MRI showed left mesial temporal FLAIR intensity without DWI/ADC abnormality consistent with recent seizure, Dane's paralysis with right-sided weakness now
improved. EEG showing background slowing.
per [id number]-[id number] seizure without MRI or EEG findings to suggest high risk for more seizures, no Keppra needed. Since no stroke shown on MRI does not need aspirin and Plavix.
mentation slowly improving, Keppra has essentially washed out. In someone with significant underlying neurological disorders, they can be post ictal for a week. Neurostatus appears to be waxing and waning. Aphasia present with intermittent
confusion/agitation. On soft restraints
Past Medical History:�Alzheimer's, dementia, GERD, BPH, diverticulitis, hiatal hernia, vitamin D deficiency, vitamin B12 deficiency, iron deficiency anemia
Procedure History:�none
Family History:�non contributory
�
Social History:�
Functional Level Premorbidly:�Independent with all activities�
Functional Level Currently:�Bed mobility�max assist, rolling�mod assist, transfer�mod assist, perseveration, ADLs-�max assist,
�
Tobacco:�Denies�
Alcohol:�Denies�
Drug use:�Denies�
�
Lives with:�Spouse- Owen
24-hour assistance available:�yes
Number of floors:�1
# steps to enter:�
# steps to second floor: none
Potential First floor set up:�yes
Driving:�no
Occupation:�retired
�
�
Allergies:�
Allergy/AdvReac Type Severity Reaction Status Date / Time
tetracycline Allergy Rash Verified 09/13/23 06:39
�
Review of Systems:�
Constitutional: (x) Normal _
Eye: (x) Normal _
Ear/Nose/Throat: (x) Normal _
Respiratory: (x) Normal _
Cardiovascular: (x) Normal _
Gastrointestinal: (x) abNormal _GERD, hiatal hernia, diverticulitis
Genitourinary: (x) abNormal _BPH,
Musculoskeletal: (x) Normal _
Integumentary: (x) Normal _
Neurologic: (x) Normal _
Psychiatric: (x) abNormal _hallucinations, dementia, Alzheimer's, agitation,
Endocrine: (x) Normal _
Hematologic/Lymphatic: (x) abNormal _iron deficiency, anemia,
Allergic/Immunologic: (x) Normal _
�
Medications:�
Active Current Visit Medication List
Category Date Time Status
0.9% Sodium Chloride [Nss (Preservative Free)] Med 10/06/24 16:28 Active
0.125 ml IV Q4HPRN PRN
Acetaminophen [Tylenol/Feverall] Med 10/04/24 22:35 Active
650 mg RECTAL Q4HPRN PRN
Acetaminophen [Tylenol] Med 10/08/24 13:38 Ordered
1,000 mg PO Q6HPRN PRN
Acetaminophen [Tylenol] Med 10/08/24 13:38 Ordered
650 mg PO Q4HPRN PRN
Cholecalciferol (Vitamin D3) [VITAMIN D3 ( Med 10/05/24 08:00 Active
cholecalciferol)]
125 mcg PO DAILY
Cyanocobalamin [Vitamin B-12] Med 10/08/24 14:00 Active
1,000 mcg PO DAILY
Enoxaparin Sodium [Lovenox] Med 10/05/24 19:00 Active
40 mg SC QPM
Flush (0.9% Sodium Chloride) [Flush (Nss)] Med 10/03/24 23:00 Active
See Dose Instructions IV PER PROTOCOL
Lorazepam [Ativan] Med 10/06/24 15:54 Active
0.25 mg IV Q4HPRN PRN
Memantine HCl [Namenda] Med 10/05/24 10:00 Active
10 mg PO BID
Pantoprazole [Protonix] Med 10/04/24 18:00 Active
40 mg PO BID@0800,1800
Risperidone [Risperdal] Med 10/07/24 18:00 Active
0.5 mg PO DAILY@1800
Rivastigmine Tartrate [Exelon] Med 10/04/24 13:00 Active
1.5 mg PO BID
Sertraline HCl [Zoloft] Med 10/04/24 18:00 Active
100 mg PO QPM
�
Vitals:�
Temp Pulse Resp BP Pulse Ox
97.8 F 84 18 165/81 96
10/08/24 12:11 10/08/24 12:11 10/08/24 12:11 10/08/24 07:30 10/08/24 12:11
Height 5 ft 7 in
Actual Weight 87.7 kg
Body Mass Index (BMI) 0.0
�
Physical Exam:�
General Appearance/Observation: Well-developed, well-nourished individual in no apparent distress in bed and in restraints.�
Pain/Comfort Assessment: unable to assess
Mood/Affect: confused�
�
Integumentary/Operative Site:�
�� Pressure Ulcer Evaluation: absent over heels.�
��
�� Other Type of Wound: absent�
��
�
Eyes: Conjunctiva/Lids: normal���� Pupils: pupils equal round
Ears/Nose/Throat: oral mucosa moist,� throat clear.������������ Lips/Teeth/Gums: normal�
Cardiovascular: Heart: regular, no murmur�
Respiratory: Respiratory Effort/Chest Expansion: normal������� Auscultation: Clear to auscultation bilaterally�
Gastrointestinal: abdomen not tender, no distension, normal abdominal bowel sounds
Extremities:�Edema: None�Cyanosis: None�Trophic�changes: None
�
Neurology Exam:
Orientation: confused, disoriented, Asking if this is Owen, also talking to self, saying ' I am going to call the police someone stole my car'
Memory: Impaired
Comprehension: confused
Two step command: confused
Naming:not able to assess
Cranial Nerves:
�� not orientated, unable to assess
Musculoskeletal: moving legs and arms
Lab Results
Labs
WBC 8.2 10^3/uL (4.8-10.8) 10/08/24 07:07
RBC 4.80 10^6/uL (4.70-6.10) 10/08/24 07:07
Hgb 12.7 g/dL (13.0-18.0) L 10/08/24 07:07
Hct 38.0 % (39.0-52.0) L 10/08/24 07:07
MCV 79.2 fL (80.0-94.0) L 10/08/24 07:07
MCH 26.5 pg (27.0-31.0) L 10/08/24 07:07
MCHC 33.4 g/dL (33.0-37.0) 10/08/24 07:07
RDW 13.8 % (11.5-14.5) 10/08/24 07:07
Plt Count 347 10^3/uL (130-400) 10/08/24 07:07
MPV 9.3 fL (7.4-10.4) 10/08/24 07:07
Abs Immat Gran (auto) 0.1 10^3/uL (0-0.05) H 10/08/24 07:07
Absolute Neuts (auto) 5.3 10^3/uL (1.4-6.5) 10/08/24 07:07
Absolute Lymphs (auto) 1.6 10^3/uL (1.2-3.4) 10/08/24 07:07
Absolute Monos (auto) 1.0 10^3/uL (0.1-0.6) H 10/08/24 07:07
Absolute Eos (auto) 0.2 10^3/uL (0-0.7) 10/08/24 07:07
Absolute Basos (auto) 0.1 10^3/uL (0-0.2) 10/08/24 07:07
Immature Gran % 0.6 % (0-0.5) H 10/08/24 07:07
Neutrophils % 64.7 % (42.2-75.2) 10/08/24 07:07
Lymphocytes % 19.4 % (20.5-51.1) L 10/08/24 07:07
Monocytes % 12.3 % (1.7-9.3) H 10/08/24 07:07
Eosinophils % 2.1 % (0-6) 10/08/24 07:07
Basophils % 0.9 % (0-2) 10/08/24 07:07
Nucleated RBC % 0 % (-) 10/08/24 07:07
PT 14.4 Sec (11.4-14.6) 10/03/24 17:00
INR 1.09 10/03/24 17:00
APTT 29.7 Sec (23.4-35.0) 10/03/24 17:00
pH 7.24 (7.35-7.45) L 10/03/24 17:36
pCO2 49 mmHg (35-48) H 10/03/24 17:36
pO2 113 mmHg (83-108) H 10/03/24 17:36
HCO3 21.0 mmol/L (21-28) 10/03/24 17:36
Base Excess -6.5 mmol/L 10/03/24 17:36
ABG O2 Sat (Measured) 98.7 % (94-98) H 10/03/24 17:36
O2 Delivery Level 10/03/24 17:36
Sodium 132 mmol/L (135-145) L 10/08/24 07:07
Potassium 3.6 mmol/L (3.5-5.1) 10/08/24 07:07
Chloride 101 mmol/L (98-107) 10/08/24 07:07
Carbon Dioxide 23 mmol/L (22-30) 10/08/24 07:07
BUN 12 mg/dl (9-20) 10/08/24 07:07
Creatinine 0.5 mg/dL (0.7-1.3) L 10/08/24 07:07
Estimated Creat Clear 97 ml/min 10/08/24 07:07
eGFR > 60.00 10/08/24 07:07
Glucose 106 mg/dl (70-99) H 10/08/24 07:07
Lactic Acid 1.1 mmol/L (0.7-2.0) 10/04/24 06:27
Calcium 8.8 mg/dl (8.4-10.2) 10/08/24 07:07
Magnesium 1.9 mg/dl (1.6-2.3) 10/08/24 07:07
Total Bilirubin 1.1 mg/dl (0.2-1.3) 10/08/24 07:07
AST 31 U/L (17-59) 10/08/24 07:07
ALT 18 U/L (0-50) 10/08/24 07:07
Alkaline Phosphatase 68 U/L (38-126) 10/08/24 07:07
Total Protein 6.4 g/dl (6.3-8.2) 10/08/24 07:07
Albumin 3.6 g/dl (3.5-5.0) 10/08/24 07:07
Triglycerides Cancelled 10/04/24 10:44
Total Cholesterol Cancelled 10/04/24 10:44
LDL Cholesterol, Calc Cancelled 10/04/24 10:44
VLDL Cholesterol, Calc Cancelled 10/04/24 10:44
HDL Cholesterol Cancelled 10/04/24 10:44
Vitamin B12 391 pg/ml (239-931) 10/07/24 07:17
Folate 6.7 ng/ml (2.76-20) 10/07/24 07:17
TSH 0.97 uIU/ml (0.47-4.68) 10/05/24 07:34
Random Cortisol 5.5 ug/dl 10/05/24 07:34
Urine Color Rocio 10/07/24 16:51
Urine Clarity Clear (Clear) 10/07/24 16:51
Urine pH 6.0 (5.0-9.0) 10/07/24 16:51
Ur Specific [place] 1.025 (<1.030) 10/07/24 16:51
Urine Ketones Negative (Negative) 10/07/24 16:51
Ur Occult Blood Reflex 4+ (Negative) A 10/07/24 16:51
Urine Nitrite (Reflex) Negative (Negative) 10/07/24 16:51
Urine Bilirubin Negative (Negative) 10/07/24 16:51
Urine Urobilinogen Negative (Neg - 1+) 10/07/24 16:51
Leukocyte Esterase Rfl Negative (Negative) 10/07/24 16:51
Urine RBC >100 /HPF (0-2) A 10/07/24 16:51
Urine WBC (Reflex) 0-2 /HPF (0-5) 10/07/24 16:51
Ur Squamous Epith Cells 0-2 /LPF (Few) 10/07/24 16:51
Urine Mucus Moderate 10/07/24 16:51
Urine Glucose 1+ (Negative) A 10/07/24 16:51
Urine Albumin (Reflex) 2+ (Neg - Trace) A 10/07/24 16:51
POC Glucose 121 mg/dl (70-99) H 10/03/24 16:52
�
Diagnostic Results:�as per HPI�
MRI of brain , 10/07- no acute intracranial abnormality noted.
CT scan of Head - 10/04- No evidence of acute intracranial abnormality.
Chest x-ray�10/01/24-Bibasilar atelectasis. Prominence of the pulmonary vascular markings
Assessment: Patient is a 84-year-old male with PMH of (Alzheimer's, dementia, GERD, BPH, diverticulitis, iron deficiency anemia, hiatal hernia) with new onset seizure and confusion/agitation
�
Plan�
�PT/OT to increase independence with ADLs, improve balance, coordination, endurance, strength, mobility, community reintegration, decreased burden of care on others and family education.�
Seizure: First time seizure without MRI or EEG findings to suggest high risk for more seizures, risk of further seizures ~20%, no Keppra needed Continue Keppra monitor seizures, seizure precautions�Anemia: Likely multifactorial.� Continue to
monitor.��
Psych/Alzheimer's dementia/anxiety: Continue patient's usual rivastigmine 1.5 mg twice a day. memantine 28 mg nightly, sertraline 100 mg/day for now. Ativan 0.25mg IV q 4 hours prn. Psychology consult.� Monitor mood,
Hyponatremia: Mild, euvolemic
Vit D deficiency: Continue Vit D
Skin: monitor for pressure sores/rashes/lesions.�
Pain: acetaminophen as needed.�
Bowel: Colace and Senna, PRN bisacodyl.�
Bladder: Time void, PVRs, PRN straight cath.�
GI Prophylaxis/hiatal hernia: Pantoprazole�40mg qd
DVT Prophylaxis:mechanical and Lovenox 40mg qpm
Pulmonary: Incentive spirometry�
Safety: Continue to reinforce assistance with all transfers.�
Code: DNR�
Dispo�(date/plan/equipment needs): Home with family care.� Social history reviewed.�
�
Functional and Medical Goals:�Modified Independent with ADL�s, ambulation, transfers�
�
Discharge Destination:�SNF
��
ATTENDING NOTE:
Patient seen and examined today and discussed with Janet Hines PA-C who also evaluated patient. I agree with above note, examination and plan as outlined. Patient is quite confused, seemingly hallucinating. Possibly due to dementia vs.
delirium. Currently not a candidate for participation in rehabilitation program. Please reconsult if patient becomes more lucid and participatory in bedside PT/OT program and we can re-evaluate.
Thank you for allowing me to care for your patient. Please contact me with any questions or concerns.
[2024-10-08] MEDS: LIDOCAINE 4% PATCH 1 PATCH TOPICAL (17:18)
[2024-10-08] MEDS: ZOLOFT 100 MG PO (17:18)
[2024-10-08] MEDS: LOVENOX 40 MG SC (17:18)
[2024-10-08] MEDS: RISPERDAL 0.5 MG PO (17:18)
[2024-10-08 23:00] VITALS: BP 158/81
[2024-10-09 06:29] LABS: Hematocrit 37.5 % (39.0-52.0); Hemoglobin 12.8 g/dL (13.0-18.0); Mean Corp Hgb Conc. 34.1 g/dL (33.0-37.0); Mean Corpuscular Hgb 27.2 pg (27.0-31.0); Mean Corpuscular Volume 79.6 fL (80.0-94.0); Mean Platelet Volume 9.2 fL (7.4-10.4); Platelet Count 348 10^3/uL (130-400); Red Blood Cell Count 4.71 10^6/uL (4.70-6.10); White Blood Cell Count 9.2 10^3/uL (4.8-10.8)
[2024-10-09 07:04] LABS: Blood Urea Nitrogen 10 mg/dl (9-20); Calcium 8.9 mg/dl (8.4-10.2); Carbon Dioxide 24 mmol/L (22-30); Chloride 98 mmol/L (98-107); Estimated Creatinine Clearance 97 ml/min; Glucose 98 mg/dl (70-99); Potassium 3.9 mmol/L (3.5-5.1); Sodium 131 mmol/L (135-145); eGFR > 60.00
[2024-10-09 07:30] VITALS: BP 157/81
[2024-10-09] MEDS: LIDOCAINE 4% PATCH 1 PATCH TOPICAL (08:30)
[2024-10-09] MEDS: VITAMIN D3 (cholecalciferol) 125 MCG PO (08:30)
[2024-10-09] MEDS: EXELON 1.5 MG PO ×2 (08:30→20:58)
--- NOTE | 2024-10-09 08:30 | PTCARENOTE ---
pt pleasant, restraints removed @8am. Bed alarm in place, will continue to monitor.
[2024-10-09] MEDS: PROTONIX 40 MG PO ×2 (08:41→17:41)
[2024-10-09] MEDS: NAMENDA 10 MG PO ×2 (08:41→20:58)
[2024-10-09] MEDS: VITAMIN B-12 1000 MCG PO (08:41)
--- NOTE | 2024-10-09 10:56 | CM ---
Chart reviewed for d/c planning. Per chart, physiatry assessed, pt is SNF appropriate.
Pt was referred [facility], [facility] interested to accept pt. Per [facility], pt will need to be off of restraints for 24 hours
Hospitalist updated
Pt will need ambulance at d/c
Plan: [facility] once 24 hours off restraints
--- NOTE | 2024-10-09 15:36 | W.PN.HOSP.TC ---
Addendum entered and electronically signed by Galilea Barth MD 10/09/24 17:40:
I saw and evaluated the patient independently. I reviewed the resident�s note and agree with findings and plan as documented by Dr. Eaton.
GENERAL: well developed, well nourished, male in no apparent distress--much more oriented with better sentences
HEENT: NC/AT
HEART: regular rate and rhythm, +S1, +S2, WILLARD
LUNGS : clear to auscultation bilaterally
ABDOM: soft, nontender, nondistended, + bowel sounds
EXT: no cyanosis, clubbing, or edema
NEUROLOGIC: aphasia improving--c/o back pain
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
given no evidence of stroke, or Keppra given new onset seizure. All discontinued---Continue to observe neuro status as Keppra washout (perhaps aphasia will resolve but has not yet)--spouse states not at baseline--does have dementia and no short
term memory but otherwise is normal--Appreciate speech therapy --pur�ed diet with thin liquids--apprec PM&R eval--> SNF
Anion gap metabolic acidosis--Likely secondary to seizure, resolved.
Hyponatremia--Mild, euvolemic--TSH, cortisol normal
Alzheimer's dementia--Spouse at bedside, confirms that aphasia is not patient's baseline. Pt baseline with impaired short-term memory, otherwise no significant neuro deficits--Continue memantine, rivastigmine, sertraline--Behavioral disturbance
noted, restart risperidone HS (outpt med)--change to ativan PRN--apprec psych input
back pain--complains with movement--add lidoderm patch to lower back
GERD/hiatal hernia--Continue Protonix when able
Vit D deficiency--Continue Vit D
BPH
Iron deficiency anemia
History of diverticulitis
code status --DNR/DNI
DVT proph�Lovenox
hopeful d/c tomorrow
Original Note:
Today's Communication/Plan
-
Discharge planning
Assessment / Plan
Assessment / Plan
84-year-old male with history of Alzheimer's dementia, GERD, BPH, iron deficiency anemia who presents with new onset seizure
Right-sided weakness and gaze preference:
New onset seizure:
-Likely Prolonged postictal state which is possible when there is underlying brain pathology
-Unlikely CVA given normal CT and MRI x 2 with no acute changes
-Waxing and waning mental status and aphasia now significantly improved and closer to baseline.
-DAPT and keppra discontinued (no evidence of stroke, first seizure)
-Urinalysis normal
-Appreciate neuro recs.
-Off restraints since 8am today
-Appreciate speech therapy -- soft bite-sized diet.
-Physiatry evaluation --> SNF recommended
Anion gap metabolic acidosis:
Likely secondary to seizure, resolved.
Hyponatremia:
Mild, euvolemic
TSH, cortisol normal
- monitor
Alzheimer's dementia
Baseline impaired short-term memory, otherwise no significant neurodeficits
-Continue memantine, rivastigmine, sertraline
-prn Ativan/Quetiapine if behavioral disturbance
GERD/hiatal hernia
-Continue Protonix
Vit D deficiency:
-Continue Vit D
Vit B12 deficiency:
-B12 391
- Supplement
BPH
Iron deficiency anemia
History of diverticulitis
DNR/DNI
DVT prophylaxis�Lovenox
Anticipated Discharge: Within 24 hours
Subjective/Interval History
-
Date of Service: October 09, 2024
Pt's at bedside. He reports significant improvement in pt's mental status
Objective Data
-
Labs:
Laboratory Results
10/09/24
06:17
WBC 9.2
Hgb 12.8 L
Hct 37.5 L
Plt Count 348
Sodium 131 L
Potassium 3.9
Chloride 98
Carbon Dioxide 24
BUN 10
Creatinine 0.5 L
Glucose 98
Calcium 8.9
Vital Signs:
Vital Signs
Temp Pulse Resp BP Pulse Ox
98.3 F 72 16 157/81 96
10/09/24 07:30 10/09/24 07:30 10/09/24 07:30 10/09/24 07:30 10/09/24 07:30
I&O
10/08/24 10/09/24 10/10/24
06:59 06:59 06:59
Intake Total 1080 / 1080 1040 / 1040
Output Total 600 / 600 700 / 700
Balance 480 / 480 340 / 340
Review of Systems
-
Unable to obtain full review of systems at this time due to: Dementia
History Source: Patient
Cardiac: Denies Chest Pain
Musculoskeletal: Denies Joint Pain (denies back pain)
Physical Exam
-
General: Well Nourished, No Apparent Distress and Comfortable
HEENT: Normocephalic, Atraumatic and Moist Mucous Membranes
Respiratory: Clear to Auscultation and Non Labored Respirations; Negative Wheezes, Rales, Rhonchi or Crackles
Cardiac: Regular Rhythm and S1/S2; Negative Murmur or Rub
GI: Soft, Nontender, Nondistended and Normal Bowel Sounds
Musculoskeletal: No Cyanosis and No Edema
Skin: Warm and Dry
Neuro: Awake, Alert and Oriented (to person and place)
Psych: Calm
[2024-10-09 15:52] LABS: Syphilis/T. pallidum Ab Reflex Negative (Negative)
[2024-10-09 16:00] VITALS: BP 139/89
[2024-10-09] MEDS: ZOLOFT 100 MG PO (17:41)
[2024-10-09] MEDS: RISPERDAL 0.5 MG PO (17:41)
[2024-10-09] MEDS: LOVENOX 40 MG SC (17:41)
--- NOTE | 2024-10-09 19:30 | PTCARENOTE ---
Assumed care of patient from previous RN. During rounds, patient upset that he is unable to find his glasses. Searched room with PCT, no glasses found. No glasses documented on patient belongings list. Will have dayshift RN reach out to significant
other to see if glasses could be at home.
--- NOTE | 2024-10-09 21:29 | PTCARENOTE ---
Patient climbing out of bed and setting off bed alarm multiple times since change of shift. Patient insisting he needs to have BM but unable to. Patient states he is constipated, feeling full, very uncomfortable and in pain to abdomen at this time.
Patient repeatedly requesting laxatives -- no PRNs available. Patient straining in bathroom -- eventually able to pass large hard BM. It appears patient had not had BM since prior to admission on 10/03/24. Hemetest + for blood, no hemorrhoids visible
upon assessment, ?internal hemorrhoids. Notified YARELIS Conti -- stat senokot ordered to be given, in addition Colace ordered BID PRN. Will obtain and provide to patient. See MAR. Will monitor.
[2024-10-09] MEDS: COLACE 100 MG PO (21:41)
[2024-10-09] MEDS: SENOKOT 8.6 MG PO (21:41)
[2024-10-09 23:53] VITALS: BP 144/90
[2024-10-10 07:00] VITALS: BP 147/74
[2024-10-10] MEDS: LIDOCAINE 4% PATCH 1 PATCH TOPICAL (10:12)
[2024-10-10] MEDS: PROTONIX 40 MG PO ×2 (10:13→18:13)
[2024-10-10] MEDS: VITAMIN B-12 1000 MCG PO (10:13)
[2024-10-10] MEDS: NAMENDA 10 MG PO ×2 (10:13→20:27)
--- NOTE | 2024-10-10 11:29 | W.PN.UPDATE ---
Update Note
Progress Note Update
Psychiatry follow up. Last seen by psych 10/07. Patient is lying in bed, pleasant and complaining of constipation. He reports feeling ok otherwise. Does not remember why he was admitted.
MSE- resting in bed. pleasant and cooperative. no signs of agitation at this time. oriented to self. thinks year is 2020 and month is october.
A/P- 84 yo male with Alzheimer's dementia and abrupt mental status change post-ictal, improving. Would continue prn Ativan, Risperdal 0.5mg HS, zoloft 100mg daily.
--- NOTE | 2024-10-10 11:38 | W.PN.HOSP.TC ---
Today's Communication/Plan
-
ready for d/c but no beds at [facility] this , will need to recheck Saturday
Assessment / Plan
Assessment / Plan
pt is an 84 year old male
ready for d/c but no beds at [facility] this , will need to recheck Saturday
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
given no evidence of stroke, or Keppra given new onset seizure. All discontinued---Continue to observe neuro status as Keppra washout (perhaps aphasia will resolve but has not yet)--spouse states not at baseline--does have dementia and no short
term memory but otherwise is normal--Appreciate speech therapy --pur�ed diet with thin liquids--apprec PM&R eval--> SNF
Anion gap metabolic acidosis--Likely secondary to seizure, resolved.
Hyponatremia--Mild, euvolemic--TSH, cortisol normal
Alzheimer's dementia--Spouse at bedside, confirms that aphasia is not patient's baseline. Pt baseline with impaired short-term memory, otherwise no significant neuro deficits--Continue memantine, rivastigmine, sertraline--Behavioral disturbance
noted, restart risperidone HS (outpt med)--change to ativan PRN--apprec psych input
back pain--complains with movement--add lidoderm patch to lower back
GERD/hiatal hernia--Continue Protonix when able
Vit D deficiency--Continue Vit D
BPH
Iron deficiency anemia
History of diverticulitis
code status --DNR/DNI
DVT proph�Lovenox
Anticipated Discharge: > 48 hours
Subjective/Interval History
-
Date of Service: October 10, 2024
no c/o
Objective Data
-
Vital Signs:
max temp for 24 hours
10/09/24
23:53
Temp 97.9 F
Vital Signs
Temp Pulse Resp BP Pulse Ox
98.6 F 74 16 147/74 97
10/10/24 07:00 10/10/24 07:00 10/10/24 07:00 10/10/24 07:00 10/10/24 07:00
I&O
10/09/24 10/10/24 10/11/24
06:59 06:59 06:59
Intake Total 1040 / 1040 600 / 600
Output Total 700 / 700 200 / 200
Balance 340 / 340 400 / 400
Review of Systems
-
All other systems: Reviewed and negative
Physical Exam
-
General: Well Developed, Well Nourished and No Apparent Distress
HEENT: Normocephalic and Atraumatic
Respiratory: Clear to Auscultation; Negative Wheezes or Rhonchi
Cardiac: Regular Rhythm and S1/S2; Negative Murmur
GI: Soft, Nontender, Nondistended and Normal Bowel Sounds
Musculoskeletal: No Clubbing, No Cyanosis and No Edema
Psych: Calm
[2024-10-10] MEDS: EXELON 1.5 MG PO ×2 (11:39→20:27)
[2024-10-10] MEDS: VITAMIN D3 (cholecalciferol) 125 MCG PO (11:39)
[2024-10-10 15:00] VITALS: BP 147/92
[2024-10-10] MEDS: COLACE 100 MG PO ×2 (16:24→20:26)
[2024-10-10] MEDS: RISPERDAL 0.5 MG PO (18:13)
[2024-10-10] MEDS: ZOLOFT 100 MG PO (18:13)
[2024-10-10] MEDS: LOVENOX 40 MG SC (18:14)
[2024-10-10] MEDS: NSS (PRESERVATIVE FREE) 0.125 ML IV (22:01)
[2024-10-10] MEDS: ATIVAN 0.25 MG IV (22:02)
[2024-10-10 23:35] VITALS: BP 108/86
[2024-10-11 07:00] VITALS: BP 166/78
[2024-10-11 07:35] LABS: Blood Urea Nitrogen 11 mg/dl (9-20); Calcium 8.7 mg/dl (8.4-10.2); Carbon Dioxide 25 mmol/L (22-30); Chloride 97 mmol/L (98-107); Estimated Creatinine Clearance 97 ml/min; Glucose 91 mg/dl (70-99); Sodium 130 mmol/L (135-145); eGFR > 60.00
[2024-10-11] MEDS: COLACE 100 MG PO (11:50)
[2024-10-11] MEDS: NAMENDA 10 MG PO ×2 (11:50→20:15)
[2024-10-11] MEDS: VITAMIN B-12 1000 MCG PO (11:50)
[2024-10-11] MEDS: PROTONIX 40 MG PO ×2 (11:50→17:17)
[2024-10-11] MEDS: LIDOCAINE 4% PATCH 1 PATCH TOPICAL (11:50)
[2024-10-11] MEDS: VITAMIN D3 (cholecalciferol) 125 MCG PO (11:52)
[2024-10-11] MEDS: EXELON 1.5 MG PO ×2 (11:52→20:15)
--- NOTE | 2024-10-11 14:47 | W.PN.HOSP.TC ---
Today's Communication/Plan
-
see bold
Assessment / Plan
Assessment / Plan
Gen: NAD, Awake and alert
Eyes: EOMI, PERRLA, no scleral icterus.
Neck: supple.
CV: RRR, +S1/S2, no m/r/g.
Resp: CTAB, no rales, wheezes, or rhonchi.
Abd: +BS, soft, NT, ND
Skin: No rashes.
Neuro: CN 2-12 intact, non-focal.
Psych: Normal mood and affect.
MRI brain 10/04/24: FLAIR hyperintense signal in the medial left temporal lobe may reflect the sequela of seizure edema. No other acute intracranial abnormality within the limitations of motion artifact. Chronic senescent changes.
EEG 10/05/24: mild generalized cerebral dysfunction
MRI brain 10/07/24: No acute intracranial abnormality noted. Layering secretions within the right maxillary sinus which can be seen with acute sinusitis. Moderate atrophy with sequelae of moderate/severe small vessel ischemic disease, unchanged from
prior.
New onset seizure (witnessed tonic clonic):
-with R-sided weakness and gaze preference c/w Dane's paralysis and post ictal state
-seen by neuro
-MRIs brain, EEG above unremarkable
-No indication for DAPT given no evidence of stroke
-was on Keppra prior but now off Keppra as per neuro given new onset seizure
Alzheimer's dementia with behavioral disturbances:
-psych following
-cont PRN ativan
-cont Risperdal/Zoloft/Namenda/Exelon
Other problems:
-AG met acidosis, resolved with IVFs
Hyponatremia: mild, stable, euvolemic, TSH and cortisol normal, initiate 120cc/day FR
Back pain: cont lidoderm patch to lower back
GERD: cont PPI
Vit D deficiency: cont Vit D
BPH
Iron deficiency anemia
h/o diverticulitis
DNR/DNI/Lovenox
Remains medically cleared for discharge. Case management aware.
Anticipated Discharge: Today
Subjective/Interval History
-
Date of Service: October 11, 2024
No new complaints.
Objective Data
-
Labs:
Laboratory Results
10/11/24
05:55
Sodium 130 L
Potassium 4.0
Chloride 97 L
Carbon Dioxide 25
BUN 11
Creatinine 0.5 L
Glucose 91
Calcium 8.7
Vital Signs:
Vital Signs
Temp Pulse Resp BP Pulse Ox
98.2 F 68 16 166/78 95
10/11/24 07:00 10/11/24 07:00 10/11/24 07:00 10/11/24 07:00 10/11/24 07:00
I&O
10/10/24 10/11/24 10/12/24
06:59 06:59 06:59
Intake Total 600 / 600 1320 / 1320
Output Total 200 / 200 1400 / 1400
Balance 400 / 400 -80 / -80
[2024-10-11 15:00] VITALS: BP 161/95
--- NOTE | 2024-10-11 16:09 | PTCARENOTE ---
Pt slept most of morning than came in. Pt was calm, ate lunch and took all pills. left and pt is now calling out 'nurse'. When I go in he said he is missing his stuff and his glasses. Per shift report, glasses are at home. Pt
unable to be re-oriented. Currently not trying to get OOB. Bed alarm remains in place for safety.
[2024-10-11] MEDS: LOVENOX 40 MG SC (17:08)
[2024-10-11] MEDS: RISPERDAL 0.5 MG PO (17:09)
[2024-10-11] MEDS: ZOLOFT 100 MG PO (17:15)
[2024-10-11] MEDS: ATIVAN 0.25 MG IV (22:23)
[2024-10-11] MEDS: NSS (PRESERVATIVE FREE) 0.125 ML IV (22:25)
[2024-10-11 23:21] VITALS: BP 150/76
[2024-10-12 08:14] VITALS: BP 155/74
--- NOTE | 2024-10-12 08:44 | W.PN.UPDATE ---
Update Note
Progress Note Update
Gen: NAD, Awake and alert
Eyes: EOMI, PERRLA, no scleral icterus.
Neck: supple.
CV: remains RRR, +S1/S2, no m/r/g.
Resp: remains CTAB, no rales, wheezes, or rhonchi.
Abd: remains +BS, soft, NT, ND
Skin: No rashes.
Neuro: CN 2-12 intact, non-focal.
Psych: Normal mood and affect.
MRI brain 10/04/24: FLAIR hyperintense signal in the medial left temporal lobe may reflect the sequela of seizure edema. No other acute intracranial abnormality within the limitations of motion artifact. Chronic senescent changes.
EEG 10/05/24: mild generalized cerebral dysfunction
MRI brain 10/07/24: No acute intracranial abnormality noted. Layering secretions within the right maxillary sinus which can be seen with acute sinusitis. Moderate atrophy with sequelae of moderate/severe small vessel ischemic disease, unchanged from
prior.
New onset seizure (witnessed tonic clonic):
-with R-sided weakness and gaze preference c/w Dane's paralysis and post ictal state
-seen by neuro
-MRIs brain, EEG above unremarkable
-No indication for DAPT given no evidence of stroke
-was on Keppra prior but now off Keppra as per neuro given new onset seizure
Alzheimer's dementia with behavioral disturbances:
-psych following
-cont PRN ativan
-cont Risperdal/Zoloft/Namenda/Exelon
Other problems:
-AG met acidosis, resolved with IVFs
Hyponatremia: mild, stable, euvolemic, TSH and cortisol normal, 1200cc/day FR initiated 10/11/24
Back pain: cont lidoderm patch to lower back
GERD: cont PPI
Vit D deficiency: cont Vit D
BPH
Iron deficiency anemia
h/o diverticulitis
DNR/DNI/Lovenox
Continues to remain medically cleared for discharge. Case management aware.
[2024-10-12] MEDS: NAMENDA 10 MG PO (08:56)
[2024-10-12] MEDS: VITAMIN B-12 1000 MCG PO (08:56)
[2024-10-12] MEDS: EXELON 1.5 MG PO (08:56)
[2024-10-12] MEDS: PROTONIX 40 MG PO (08:56)
[2024-10-12] MEDS: LIDOCAINE 4% PATCH 1 PATCH TOPICAL (08:56)
[2024-10-12] MEDS: VITAMIN D3 (cholecalciferol) 125 MCG PO (08:56)
--- NOTE | 2024-10-12 09:51 | W.PN.HOSP.TC ---
Addendum entered and electronically signed by Aidan Figueroa MD 10/12/24 12:25:
Total time spent on d/c = 31 min. This included today's physical exam, progress note, review of laboratory and diagnostic data, preparation of discharge documents and prescriptions, and discussions about the pt's hospital course and discharge plan
with the patient and other medical records library professor involved in the patient's care.
Original Note:
Today's Communication/Plan
-
Discharge planning
Assessment / Plan
Assessment / Plan
84-year-old male with history of Alzheimer's dementia, GERD, BPH, iron deficiency anemia who presents with new onset seizure
New onset seizure (witnessed tonic-clonic):
-Likely Prolonged postictal state which is possible when there is underlying brain pathology
-Unlikely CVA given normal CT and MRI x 2 with no acute changes
-Waxing and waning mental status and aphasia now significantly improved and closer to baseline.
-DAPT and keppra discontinued (no evidence of stroke, first seizure)
-Urinalysis normal
-Appreciate neuro recs.
-Appreciate speech therapy -- soft bite-sized diet.
-Physiatry evaluation --> SNF recommended, awaiting [facility] acceptance. Patient stable for discharge
Anion gap metabolic acidosis:
Likely secondary to seizure, resolved.
Hyponatremia:
Mild, euvolemic
TSH, cortisol normal
- fluid restriction
Alzheimer's dementia
Baseline impaired short-term memory, otherwise no significant neurodeficits
-Continue memantine, rivastigmine, sertraline
-prn Ativan/Quetiapine if behavioral disturbance
GERD/hiatal hernia
-Continue Protonix
Vit D deficiency:
-Continue Vit D
Vit B12 deficiency:
-B12 391
- Supplement
BPH
Iron deficiency anemia
History of diverticulitis
DNR/DNI
DVT prophylaxis�Lovenox
Anticipated Discharge: Within 24 hours
Anticipated Discharge: Today
Subjective/Interval History
-
Date of Service: October 12, 2024
Some confusion overnight, requiring no restraints. No acute overnight events.
Objective Data
-
Vital Signs:
Vital Signs
Temp Pulse Resp BP Pulse Ox
98.8 F 76 16 155/74 94
10/12/24 08:14 10/12/24 08:14 10/12/24 08:14 10/12/24 08:14 10/12/24 08:14
I&O
10/11/24 10/12/24 10/13/24
06:59 06:59 06:59
Intake Total 1320 / 1320 800 / 800
Output Total 1400 / 1400 600 / 600
Balance -80 / -80 200 / 200
Review of Systems
-
History Source: Patient
Respiratory: Denies Cough or Trouble Breathing
Cardiac: Denies Chest Pain
Abdomen/GI: Denies Abdominal Pain
Genitourinary: Denies Dysuria
Physical Exam
-
General: No Apparent Distress and Comfortable
HEENT: Normocephalic, Atraumatic and Moist Mucous Membranes
Respiratory: Clear to Auscultation and Non Labored Respirations; Negative Wheezes, Rales, Rhonchi or Crackles
Cardiac: Regular Rhythm and S1/S2; Negative Murmur, Rub or Calf Tenderness
GI: Soft, Nontender, Nondistended and Normal Bowel Sounds
Skin: Warm and Dry
Psych: Calm
--- NOTE | 2024-10-12 12:02 | CM ---
CM reviewed pt with Dr Figueroa- remains medically appropriate for dc
SNF confirmed with [facility] admissions
Pt off restraints and behavior-free per nursing
PASRR completed and sent via [facility]
IMM verbally review with spouse over phone
Copy left bedside in pt's room
Medical necessity completed
Discharged Disposition- [facility] 2nd floor via BLS
Phone- [phone] Fax- [phone]
--- NOTE | 2024-10-12 13:27 | W.DCSUMMARY ---
Discharge Summary
Discharge Data
Date of Admission: 10/03/24
Date of Discharge: 10/12/24
-
Pending Results: No
Hospital Course
Discharging Physician : Siobhan Eaton MD; Aidan Figueroa MD.
Disposition : SNF
Primary care physician : Sachin Duncan DO.
Principal Discharge diagnosis : New onset seizure (witnessed tonic clonic) with Right-sided weakness and gaze preference c/w Dane's paralysis and post ictal state,Anion gap metabolic acidosis, Hyponatremia
Chronic Discharge diagnosis : Alzheimer's dementia, back pain, gastroesophageal reflux disease, haital hernia, Vit D deficiency, benign prostatic hyperplasia, Iron deficiency anemia, History of diverticulitis
Hospital Course :
HPI: 84-year-old male past medical history of Alzheimer's, GERD, hiatal hernia, BPH, iron deficiency anemia, diverticulitis, presenting from [facility] for seizure. He went for a nap at 2 PM woke up with right-sided weakness and gaze preference. MS
was called for possible stroke and they found him to have a tonic-clonic seizure for 3 to 4 minutes was given 5 mg IM Versed. No prior personal or family history of stroke or seizures.
On arrival to the ED, vitals were stable, hyponatremia noted 132, and metabolic acidosis. There was concern for stroke, intracranial hemorrhage and seizure. CT head was unremarkable and he was started on Keppra, Aspirin and Plavix. CT angiogram was
also unremarkable. MRI showed no intracranial abnormality. Keppra was discontinued as this was first time seizure without MRI or EEG findings to suggest high risk for more seizures. Aspirin and Plavix was also discontinued as there was no evidence
of stroke.
Hyponatremia was mild and appeared to be consistent with patient's baseline, fluid restriction initiated.
Anion gap metabolic acidosis was likely secondary to seizure, resolved quickly.
All chronic home medications were continued throughout stay.
Right sided weakness resolved shortly after admission. Confusion and agitation were noted, requiring soft restraints, Ativan PRN and Quetiapine as appropriate. Soft restraints were removed on 10/09. Pt mental status continued to improve throughout
stay, and he appeared to be at (or very close to) baseline at time of discharge. PT/OT evaluation with recommendations for SNF, Pt was discharged to [facility] after placement was arranged.
Important imaging findings :
MRI brain 10/04/24: FLAIR hyperintense signal in the medial left temporal lobe may reflect the sequela of seizure edema. No other acute intracranial abnormality within the limitations of motion artifact. Chronic senescent changes.
EEG 10/05/24: mild generalized cerebral dysfunction
MRI brain : FLAIR hyperintense signal in the medial left temporal lobe may reflect the sequela of seizure edema. No other acute intracranial abnormality within the limitations of motion artifact. Chronic senescent changes
MRI brain 10/07/24: No acute intracranial abnormality noted. Layering secretions within the right maxillary sinus which can be seen with acute sinusitis. Moderate atrophy with sequelae of moderate/severe small vessel ischemic disease, unchanged from
prior.
Discharge Plan
-
Patient Disposition: Intermediate/SNF
Discharge Diagnosis/Procedures: New onset seizure (witnessed tonic clonic) with Right-sided weakness and gaze preference c/w Adne's paralysis and post ictal state,Anion gap metabolic acidosis, Hyponatremia, Alzheimer's dementia, back pain,
GERD/hiatal hernia, Vitamin D deficiency, BPH, Iron deficiency anemia, History of diverticulitis
Condition: Good
Diet: Other diet
Additional Diets: soft and bite sized
Activity: As tolerated
Driving Restrictions: No driving
Bathing Restrictions: None
Referrals:
Sachin Duncan, DO [Family Provider] - in less than 1 week
Prescriptions:
New
cyanocobalamin (vitamin B-12) [Vitamin B-12] 1,000 mcg Tablet
1,000 mcg PO DAILY Qty: 30 0RF
cholecalciferol (vitamin D3) 125 mcg (5,000 unit) Tablet
125 mcg PO DAILY Qty: 30 0RF
lorazepam 0.5 mg tablet
0.25 mg PO DAILY PRN (Reason: agitation) Qty: 1 0RF
Continued
rivastigmine tartrate 1.5 mg Capsule
1.5 mg PO BID
sertraline 100 mg Tablet
100 mg PO QPM
pantoprazole 40 mg Tablet,Delayed Release (Dr/Ec)
40 mg PO QPM
risperidone 1 mg Tablet
0.5 mg PO QPM
memantine 28 mg Capsule,Sprinkle,Er 24hr
28 mg PO QPM
pantoprazole [Protonix] 40 mg Tablet,Delayed Release (Dr/Ec)
40 mg PO DAILY
Discharge Orders:
Discharge Patient (As Directed); Ordered 10/12/24
Ordered By: Siobhan Eaton
Discharge Date and Time
Print Language: GREENLANDIC
[2024-10-12 14:56] VITALS: BP 189/93
== END 2024-10-12 15:03 | DRG 101 ==
LOC: 3 WEST ACU 19:58
PROVIDERS: Internal Medicine; Student in an Organized Health Care Education/Training Program; ADMITTING PHYSICIAN Hospitalist; ATTENDING PHYSICIAN Internal Medicine; CONSULT PHYSICIAN Psychiatry & Neurology Neurology; EMERGENCY PHYSICIAN Emergency Medicine; FAMILY PHYSICIAN Family Medicine; OTHER PHYSICIAN Physical Medicine & Rehabilitation; OTHER PHYSICIAN Psychiatry & Neurology Psychiatry
DX: G40.409 Other generalized epilepsy and epileptic syndromes, not intractable, without status epilepticus (principal); E87.1 Hypo-osmolality and hyponatremia; E87.20 Acidosis, unspecified; R47.01 Aphasia; F02.C11 Dementia in other diseases classified elsewhere, severe, with agitation; G81.91 Hemiplegia, unspecified affecting right dominant side; G83.84 Todd's paralysis (postepileptic); G30.9 Alzheimer's disease, unspecified; I10 Essential (primary) hypertension; K21.9 Gastro-esophageal reflux disease without esophagitis; E53.8 Deficiency of other specified B group vitamins; M54.9 Dorsalgia, unspecified; R44.1 Visual hallucinations; K44.9 Diaphragmatic hernia without obstruction or gangrene; N40.0 Benign prostatic hyperplasia without lower urinary tract symptoms; E55.9 Vitamin D deficiency, unspecified; D50.9 Iron deficiency anemia, unspecified; Z66 Do not resuscitate; Z88.1 Allergy status to other antibiotic agents; Z87.19 Personal history of other diseases of the digestive system; Z78.1 Physical restraint status
CPT/HCPCS: 0042T; 70450; 70496; 70498; 70553; 71045; 80048; 80053; 80061; 81003; 81015; 82533; 82607; 82746; 82805; 82962; 83605; 83735; 84443; 85025; 85027; 85610; 85730; 86780; 92526; 92610; 93005; 95816; 96374; 97112; 97116; 97163; 97167; 97530; 97535; 99291; A9575; Q9967

== ENCOUNTER → 2024-10-15 10:37 | Outpatient (REF) | payer OTHER, MEDICARE, SELFPAY ==
[2024-10-15 12:50] LABS: % Basophils 1.2 % (0-2); % Eosinophils 1.4 % (0-6); % Immature Granulocytes 0.6 % (0-0.5); % Lymphocytes 29.3 % (20.5-51.1); % Monocytes 13.4 % (1.7-9.3); % Neutrophils 54.1 % (42.2-75.2); Absolute Basophils 0.1 10^3/uL (0-0.2); Absolute Eosinophils 0.1 10^3/uL (0-0.7); Absolute Immature Granulocytes 0.1 10^3/uL (0-0.05); Absolute Lymphocytes 2.5 10^3/uL (1.2-3.4); Absolute Monocytes 1.1 10^3/uL (0.1-0.6); Absolute Neutrophils 4.6 10^3/uL (1.4-6.5); Hematocrit 35.3 % (39.0-52.0); Hemoglobin 12.2 g/dL (13.0-18.0); Mean Corp Hgb Conc. 34.6 g/dL (33.0-37.0); Mean Corpuscular Hgb 27.4 pg (27.0-31.0); Mean Corpuscular Volume 79.1 fL (80.0-94.0); Mean Platelet Volume 10.1 fL (7.4-10.4); Nucleated Red Blood Cells % 0 % (-); Platelet Count 354 10^3/uL (130-400); Red Blood Cell Count 4.46 10^6/uL (4.70-6.10); Red Cell Dist. Width 14.1 % (11.5-14.5); White Blood Cell Count 8.5 10^3/uL (4.8-10.8)
[2024-10-15 13:07] LABS: Blood Urea Nitrogen 12 mg/dl (9-20); Calcium 8.7 mg/dl (8.4-10.2); Carbon Dioxide 21 mmol/L (22-30); Chloride 94 mmol/L (98-107); Glucose 91 mg/dl (70-99); Sodium 124 mmol/L (135-145); eGFR > 60.00
== END ==
LOC: OLABP 10:37
PROVIDERS: ATTENDING PHYSICIAN Family Medicine
DX: G30.9 Alzheimer's disease, unspecified (principal); E87.1 Hypo-osmolality and hyponatremia; M54.9 Dorsalgia, unspecified; G81.91 Hemiplegia, unspecified affecting right dominant side
CPT/HCPCS: 36415; 80048; 85025

== ENCOUNTER → 2024-10-16 10:15 | Outpatient (REF) | payer MEDICARE, OTHER, SELFPAY ==
[2024-10-16 11:45] LABS: Blood Urea Nitrogen 9 mg/dl (9-20); Calcium 8.4 mg/dl (8.4-10.2); Carbon Dioxide 23 mmol/L (22-30); Chloride 92 mmol/L (98-107); Glucose 98 mg/dl (70-99); Potassium 4.6 mmol/L (3.5-5.1); Sodium 121 mmol/L (135-145); eGFR > 60.00
== END ==
LOC: OLABP 10:15
PROVIDERS: ATTENDING PHYSICIAN Family Medicine
DX: G30.9 Alzheimer's disease, unspecified (principal); E87.1 Hypo-osmolality and hyponatremia; M54.9 Dorsalgia, unspecified; G81.91 Hemiplegia, unspecified affecting right dominant side
CPT/HCPCS: 36415; 80048

== ENCOUNTER 2024-10-19 14:08 | Inpatient (IN) | payer MEDICARE, OTHER, SELFPAY ==
[2024-10-17] VITALS (9 sets, daily range): BP systolic 141–187; BP diastolic 69–95
--- NOTE | 2024-10-17 12:09 | ED.GENMED ---
History of Present Illness
General
Chief Complaint: Fall
Source: other (warp worker and nurse)
Exam Limitations: none
Time Seen by Provider: 10/17/24 11:44
History of Present Illness
History of Present Illness:
84-year-old male apparently in rehab after a recent admission for seizure. There was initially concerns of stroke. He was started on Keppra. No acute abnormalities on MRI also mild hyponatremia. He apparently fell last evening and rehab.
Aphasia is not new. Patient at one point was complaining of left hip and right wrist pain although does not complaining of any issues to me currently. He was sent out today primarily after the fall last evening with concern of left hip pain today
Past History
Past History
ED Past Medical History: GERD, Seizures and Other (Dementia, erectile dysfunction, BPH, iron deficiency anemia, vitamin D deficiency, diverticulosis, colovesical fistula)
ED Past Surgical History: Other (Inguinal herniorrhaphy, left hydrocelectomy, sigmoidectomy 2023)
Social History
Tobacco: Non-smoker
Alcohol: Occasional
Drug: None
Personal:
Living: with family
Employment: Retired
Family History
Family History: Other (Reviewed and noncontributory)
Review of Systems
Review of Systems
Unable to obtain full review of systems at this time due to: dementia
All Other Systems: Not applicable
Phy Exam
Physical Exam
Physical Exam:
TRAUMA EXAM:
VITAL SIGNS: Vital signs reviewed, cooperative
DISTRESS: No active disease
EYES: Pupils reactive, no orbital trauma
NOSE: No deformity or epistaxis
FACE AND SCALP: No scalp or facial trauma, external canals no blood
NECK: Supple nontender
BACK: Back nontender, pelvis stable to compression
RESPIRATORY: No distress, breath sounds normal, no tender chest wall
CARDIAC: No murmur, pulses equal and strong
ABDOMEN: Soft nontender bowel sounds normal
SKIN: Skin intact no bleeding, color normal
EXTREMITIES: Nontender
NEUROLOGICAL: Alert, oriented x 1, no motor deficits
PSYCH: Mildly agitated at times
Course
Orders/Labs/Results
Orders:
Orders
10/17/24 12:05
CT Head W/o Iv Contrast Urgent
Comment:
Reason For Exam: fall. possible head injury
Pelvis, 1 or 2 Views CR [CR Pelvis - 1 Or 2 Views ] Urgent
Comment:
Reason For Exam: trauma
10/17/24 12:26
Basic Metabolic Panel Urgent
Complete Blood Count/With Diff Urgent
10/17/24 Dinner
Regular
At Your Request: Limited Participation
Does patient need a safe tray?: No
Fluid Restriction: 1200 mL/day (40 oz)
10/17/24 16:38
Admit/Transfer Patient As Directed
Co-Sign Provider:
Level of Care: Observation services
Assign to:: Medical/Surgical
Physician / Group: cecilia
Diagnosis: hyponatremia, fall
10/17/24 16:39
Code Status As Directed
Resuscitation Status: Do not resuscitate
Reached after discussion with pt or family/Healthcare POA: Yes
PRN Pain Medication Management As Directed
May give lesser potent ordered pain med per pt: Yes
preference::
Protocol:: Medication orders for pain may be administered in a
manner that supports deferring to patient preference
when the pt is:
- Requesting an ordered lesser potent pain medication.
Least to most potent pain medications are defined
as: acetaminophen < NSAID < tramadol < opioids
(morphine, oxycodone, hydromorphone).
- Requesting a lesser dose of the same medication IF
ORDERED.
- Requesting a less intrusive route of administration
if both routes are prescribed by the provider (PO <
IV).
10/17/24 16:40
DNR Bracelet Application ONCE
10/17/24 16:53
CT Cervical Spine W/o Iv Contr Urgent
Comment:
Reason For Exam: Trauma.
CT Head W/o Iv Contrast Urgent
Comment:
Reason For Exam: Trauma. Mid back pain.
Cardiac Monitoring- Treatment ONCE
10/17/24 16:54
CT Abd/pel Without Iv Or Oral Urgent
Comment:
Reason For Exam: Fall. Back pain.
10/17/24 16:55
1:1 Observation - Suicide/ Violent Behavior As Directed
10/17/24 21:05
Acetaminophen [Tylenol] 650 mg PO Q4H PRN
Bisacodyl [Dulcolax] 10 mg RECTAL DAILY PRN
Heparin 5,000 units SC Q12
Lorazepam [Ativan] 0.25 mg PO DAILY PRN
Magnesium Hydroxide [Milk of Magnesia] 30 ml PO DAILY PRN
Pantoprazole [Protonix] 40 mg PO BID
Rivastigmine Tartrate [Exelon] 1.5 mg PO BID
Sertraline HCl [Zoloft] 100 mg PO QPM
Sodium Chloride 0.5 gram PO BID
10/17/24 21:05
Activity As Directed
Activity Level: As Tolerated
Vital Signs As Directed
Frequency: Per unit guidelines
DX Deep Vein Thrombosis Video Routine
10/17/24 22:00
Memantine HCl [Namenda] 10 mg PO BID
Risperidone [Risperdal] 0.5 mg PO HS
10/18/24 06:15
Complete Blood Count/With Diff IN AM
Comprehensive Metabolic Panel IN AM
10/18/24 08:00
Cholecalciferol (Vitamin D3) [VITAMIN D3 (cholecalciferol)] 125 mcg PO DAILY
Cyanocobalamin [Vitamin B-12] 1,000 mcg PO DAILY
Abnormal Lab Results
02/22/25
12:26
RBC 4.54 L 10^6/uL
(4.70-6.10)
Hgb 12.3 L g/dL
(13.0-18.0)
Hct 35.7 L %
(39.0-52.0)
MCV 78.6 L fL
(80.0-94.0)
Plt Count 438 H D 10^3/uL
(130-400)
Abs Immat Gran (auto) 0.1 H 10^3/uL
(0-0.05)
Absolute Monos (auto) 1.2 H 10^3/uL
(0.1-0.6)
Lymphocytes % 18.6 L %
(20.5-51.1)
Monocytes % 13.1 H %
(1.7-9.3)
Sodium 125 L mmol/L
(135-145)
Chloride 94 L mmol/L
(98-107)
Carbon Dioxide 20 L mmol/L
(22-30)
Creatinine 0.5 L mg/dL
(0.7-1.3)
Glucose 105 H mg/dl
(70-99)
10/17/24 12:26
10/17/24 12:26
Vital Signs
Initial and Last Documented VS:
Initial Vital Signs
Temp Pulse Resp BP Pulse Ox
97.6 F 72 16 161/84 96
10/17/24 11:31 10/17/24 11:31 10/17/24 11:31 10/17/24 11:31 10/17/24 11:31
Last Documented Vital Signs
Temp Pulse Resp BP Pulse Ox
98.3 F 86 18 170/83 95
10/18/24 08:16 10/18/24 08:16 10/18/24 08:16 10/18/24 08:16 10/18/24 08:16
MDM/Problems Addressed
Differential Diagnosis Includes:
Patient had a fall last evening. Here primarily for evaluation of left hip pain although on exam he has no pain with hip rotation no pelvic tenderness. Nothing to support any acute traumatic issue. His aphasia is old. We will check a head CT.
Pelvis x-ray which should get the hips. Also check electrolytes
*Radiology
Radiology exam reviewed: radiology read reviewed (No acute findings)
*Pulse Oximetry
Patient hypoxic: no
*Critical Care Note
Total Time (30-74mins, 75-104mins- exclusive of procedures): Not Applicable
Data Reviewed
Review of Other/Old Records Reveals: Labs, Records, Radiology Studies, Testing and Discharge Summary
Update Note
Update Note:
Patient left the hospital on October 11 with a sodium of 130. On October 15 his sodium was 124. On October 16 was 121. It is back up to 125 although still low. With his history of seizure recently low sodium. Feel this warrants inpatient
observation until the sodium is clearly rising higher to a more reasonable range
1650.... Patient had an unwitnessed fall although we did hear him hit the ground. Upon getting into the room immediately patient was on the floor on his back. Complaining of some mid back pain. No other obvious trauma. Patient was able to stand
bear full weight and assist with ambulation back in the bed. No sign of head trauma abdomen soft and nontender no chest wall touch tenderness. We will CT his head cervical spine and plain abdomen and pelvis. Hospitalist contacted
ED Attending Note
-
Portions of this chart may have been created with voice recognition software.� Occasional wrong word or��sound alike� substitutions may have occurred due to the inherent limitations of voice recognition software.
Discharge Plan
Departure
Patient Disposition: Admit
Date of Disposition: 10/17/24
Time of Disposition: 16:09
Presentation/result/management discussed w/ accepting MD/DO: Hospitalist
Discharge Problem:
Hyponatremia, Change in mental status, History of dementia
Interventions
Interventions:
*Risk Screen - Suicide Last Done: 10/17/24 11:40
*General Assessment Last Done: 10/17/24 11:39
*Neglect/Abuse Screening Last Done: 10/17/24 11:40
ED- Fall Risk Assessment Last Done: 10/17/24 17:00
*ED COVID-19 Vaccine History Last Done: 10/17/24 11:39
*Nursing Disposition Last Done: 10/17/24 21:06
ED-Musculoskeletal Assessment Last Done: 10/17/24 11:41
ED- Neurological Assessment Last Done: 10/17/24 11:41
ED-Skin Assessment Last Done: 10/17/24 11:41
Discharge Date and Time
Discharge Date/Time: 10/17/24 21:07
[2024-10-17 12:31] LABS: % Basophils 0.8 % (0-2); % Eosinophils 0.1 % (0-6); % Immature Granulocytes 0.5 % (0-0.5); % Lymphocytes 18.6 % (20.5-51.1); % Monocytes 13.1 % (1.7-9.3); % Neutrophils 66.9 % (42.2-75.2); Absolute Basophils 0.1 10^3/uL (0-0.2); Absolute Immature Granulocytes 0.1 10^3/uL (0-0.05); Absolute Lymphocytes 1.7 10^3/uL (1.2-3.4); Absolute Monocytes 1.2 10^3/uL (0.1-0.6); Absolute Neutrophils 6.1 10^3/uL (1.4-6.5); Hematocrit 35.7 % (39.0-52.0); Hemoglobin 12.3 g/dL (13.0-18.0); Mean Corp Hgb Conc. 34.5 g/dL (33.0-37.0); Mean Corpuscular Hgb 27.1 pg (27.0-31.0); Mean Corpuscular Volume 78.6 fL (80.0-94.0); Mean Platelet Volume 8.8 fL (7.4-10.4); Nucleated Red Blood Cells % 0 % (-); Platelet Count 438 10^3/uL (130-400); Red Blood Cell Count 4.54 10^6/uL (4.70-6.10); Red Cell Dist. Width 14.2 % (11.5-14.5); White Blood Cell Count 9.2 10^3/uL (4.8-10.8)
[2024-10-17 12:55] LABS: Blood Urea Nitrogen 11 mg/dl (9-20); Calcium 8.9 mg/dl (8.4-10.2); Carbon Dioxide 20 mmol/L (22-30); Chloride 94 mmol/L (98-107); Glucose 105 mg/dl (70-99); Potassium 4.2 mmol/L (3.5-5.1); Sodium 125 mmol/L (135-145); eGFR > 60.00
--- NOTE | 2024-10-17 16:41 | HPS.HSE ---
Addendum entered and electronically signed by Chris Louise MD 10/17/24 17:06:
Fell again here and found on the ground so repeating CT head.
Addendum entered and electronically signed by Chris Louise MD 10/17/24 16:44:
Continue sodium tablet.
Original Note:
Family Physician
-
Family Physician: Mauricio La MD
Chief Complaint
-
confusion, fall
History of Present Illness
84-year-old male past medical history of seizures, Alzheimer's dementia, GERD/hiatal hernia, vitamin D deficiency, vitamin B12 deficiency, BPH, iron deficiency anemia, diverticulitis, presenting for fall. He apparently fell last evening at rehab.
He was apparently also confused yesterday. He was apparently complaining of left hip and right wrist pain although denies any pain currently.
Patient was recently admitted from 10/03 to 10/12 for seizure. Fluid restriction was initiated.
Medical History
Past Medical History
Past Medical History: Reports Other (seizures, Alzheimer's dementia, GERD/hiatal hernia, vitamin D deficiency, vitamin B12 deficiency, BPH, iron deficiency anemia, diverticulitis,)
Past Surgical History: Reports None
Social History
Tobacco: Non-smoker
Alcohol: None
Drug: None
Family History
Family History: Not pertinent
Allergies / Home Medications
Allergies reflects when Allergies were last updated in [facility].
Home Medications with original date entered in [facility]
Allergy/Medication List:
Allergies
Allergy/AdvReac Type Severity Reaction Status Date / Time
tetracycline Allergy Rash Verified 10/17/24 16:39
Home Medications
memantine 28 mg capsule sprinkle,extended release 24hr 28 mg PO QPM Alzhemimer's dementia 06/25/23
rivastigmine tartrate 1.5 mg capsule 1.5 mg PO BID Alzhemimer's dementia 06/25/23
sertraline 100 mg tablet 100 mg PO QPM Alzhemimer's dementia 06/25/23
pantoprazole 40 mg tablet,delayed release (Protonix) 40 mg PO BID Gastrointestinal Issue 10/03/24
cholecalciferol (vitamin D3) 125 mcg (5,000 unit) tablet 125 mcg PO DAILY Supplement #30 tabs 10/12/24
lorazepam 0.5 mg tablet 0.25 mg (1/2 x 0.5 mg) PO DAILY PRN agitation #1 tab 10/12/24
acetaminophen 325 mg tablet (Tylenol) 650 mg PO Q4H PRN pain/ fever 10/17/24
bisacodyl 10 mg rectal suppository (Dulcolax (bisacodyl)) 10 mg NC DAILY PRN constipation 10/17/24
cyanocobalamin (vitamin B-12) 1,000 mcg tablet (Vitamin B-12) 1,000 mcg PO DAILY 10/17/24
magnesium hydroxide 400 mg/5 mL oral suspension (Milk of Magnesia) 30 ml PO DAILY PRN constipation 10/17/24
risperidone 0.5 mg tablet 0.5 mg PO HS 10/17/24
sodium chloride 1,000 mg soluble tablet 500 mg PO BID 10/17/24
sodium phosphates 19 gram-7 gram/118 mL enema (Fleet Enema) ml NC PRN constipation 10/17/24
Review of Systems
-
History Source: Patient
A 12 point ROS was completed and negative except as noted: Yes
Constitutional: Reports No Symptoms
EENT: Reports No Symptoms
Respiratory: Reports No Symptoms
Cardiac: Reports No Symptoms
Abdomen/GI: Reports No Symptoms
: Reports No Symptoms
Musculoskeletal: Reports No Symptoms
Skin: Reports No Symptoms
Neurological: Reports No Symptoms
Endocrine: Reports No Symptoms
Hematologic/Lymphatic: Reports No Symptoms
Psych: Reports No Symptoms
Physical Exam
Vital Signs
Vital Signs
Temp Pulse Resp BP Pulse Ox
97.6 F 81 16 153/84 97
10/17/24 11:31 10/17/24 14:00 10/17/24 14:06 10/17/24 14:00 10/17/24 12:11
Physical Exam
General: Well Developed, Well Nourished and No Apparent Distress
HEENT: NormoCephalic, Moist mucous membranes and Atraumatic
Respiratory: Clear
Cardiac: S1/S2 and Regular Rhythm; No Murmur or Rub
GI: Soft, Non Tender, Non Distended and Normal Bowel Sounds; No Organomegaly
Rectal: Deferred by Provider
Musculoskeletal: No Clubbing, No Cyanosis and No Edema
Skin: No Rash
Neuro: Nonfocal/grossly intact
Laboratory Results
-
10/17/24 12:26
10/17/24 12:26
Data Reviewed
-
Lab Data: Labs Reviewed by me
Old Records: Reviewed
Impression/Plan
-
IMPRESSION:
PLAN:
# Fall
-CT head shows no acute abnormality
-Pelvic x-ray shows no acute abnormality
-PT/OT
# Euvolemic chronic hyponatremia
-Sodium level 125, was 121 yesterday, baseline around 130
-Continue fluid restriction 1200 cc
-Monitor sodium and observation to make sure that sodium is not getting worse
-Patient's mental status is poor which may be his baseline secondary to Alzheimer's, able to move extremities and no gross neurological deficits
Recent seizure
-Not on seizure medication due to it being first seizure
Alzheimer's dementia with behavioral disturbance
-Patient can follow some commands but otherwise confused
-Continue rivastigmine, Risperdal, sertraline, memantine, Ativan
GERD/hiatal hernia
-Continue Protonix
Vitamin D deficiency
Vitamin B12 deficiency
BPH
Iron deficiency anemia
History of diverticulitis
DNR/DNI
DVT prophylaxis�heparin
Regular diet
--- NOTE | 2024-10-17 17:01 | EDRN ---
Patient had an unwitnessed fall. This RN was in another patient's room when she was called by another nurse who heard a 'thud' Patient is confused at baseline. Patient states that he does not have any pain. Dr. Cabrera and Dr. Louise made aware.
More imagining ordered. Fall risk done.
[2024-10-17] MEDS: ULTRAM 50 MG PO (21:51)
[2024-10-17] MEDS: PROTONIX 40 MG PO (21:51)
[2024-10-17] MEDS: EXELON 1.5 MG PO (21:51)
[2024-10-17] MEDS: SODIUM CHLORIDE 0.5 GRAM PO (21:51)
[2024-10-17] MEDS: RISPERDAL 0.5 MG PO (21:52)
[2024-10-17] MEDS: HEPARIN 5000 UNITS SC (21:52)
[2024-10-17] MEDS: NAMENDA 10 MG PO (21:52)
[2024-10-17] MEDS: ZOLOFT 100 MG PO (23:29)
[2024-10-17] MEDS: ATIVAN 0.25 MG PO (23:29)
[2024-10-18 08:06] LABS: % Basophils 0.9 % (0-2); % Eosinophils 1.4 % (0-6); % Immature Granulocytes 0.7 % (0-0.5); % Lymphocytes 14.9 % (20.5-51.1); % Monocytes 12.7 % (1.7-9.3); % Neutrophils 69.4 % (42.2-75.2); Absolute Basophils 0.1 10^3/uL (0-0.2); Absolute Eosinophils 0.1 10^3/uL (0-0.7); Absolute Immature Granulocytes 0.1 10^3/uL (0-0.05); Absolute Lymphocytes 1.3 10^3/uL (1.2-3.4); Absolute Monocytes 1.1 10^3/uL (0.1-0.6); Absolute Neutrophils 6.3 10^3/uL (1.4-6.5); Hematocrit 32.3 % (39.0-52.0); Mean Corp Hgb Conc. 34.1 g/dL (33.0-37.0); Mean Corpuscular Hgb 27.2 pg (27.0-31.0); Mean Corpuscular Volume 79.8 fL (80.0-94.0); Mean Platelet Volume 9.4 fL (7.4-10.4); Nucleated Red Blood Cells % 0 % (-); Platelet Count 419 10^3/uL (130-400); Red Blood Cell Count 4.05 10^6/uL (4.70-6.10); Red Cell Dist. Width 14.3 % (11.5-14.5)
[2024-10-18 08:16] VITALS: BP 170/83
[2024-10-18 08:36] LABS: ALT (SGPT) 20 U/L (0-50); AST (SGOT) 30 U/L (17-59); Albumin 3.7 g/dl (3.5-5.0); Alkaline Phosphatase 94 U/L (38-126); Blood Urea Nitrogen 9 mg/dl (9-20); Calcium 8.4 mg/dl (8.4-10.2); Carbon Dioxide 20 mmol/L (22-30); Chloride 90 mmol/L (98-107); Glucose 80 mg/dl (70-99); Sodium 122 mmol/L (135-145); Total Bilirubin 1.3 mg/dl (0.2-1.3); Total Protein 6.3 g/dl (6.3-8.2); eGFR > 60.00
[2024-10-18] MEDS: EXELON 1.5 MG PO ×2 (08:49→21:04)
[2024-10-18] MEDS: SODIUM CHLORIDE 0.5 GRAM PO ×2 (08:49→21:02)
[2024-10-18] MEDS: PROTONIX 40 MG PO ×2 (08:50→21:03)
[2024-10-18] MEDS: VITAMIN D3 (cholecalciferol) 125 MCG PO (08:50)
[2024-10-18] MEDS: NAMENDA 10 MG PO ×2 (08:50→21:04)
[2024-10-18] MEDS: HEPARIN 5000 UNITS SC ×2 (08:50→21:04)
[2024-10-18] MEDS: VITAMIN B-12 1000 MCG PO (08:50)
--- NOTE | 2024-10-18 09:08 | CM ---
Met with patient at bedside - OBS form explained to spouse & verbalizes understanding
Dx; hyponatremia, fall
PHM: seizures, Alzheimer's dementia, GERD/hiatal hernia, vitamin D deficiency, vitamin B12 deficiency, BPH
IA obtained from spouse Owen
Patient was recently hospitalized here 10/03-10/12 then went to [facility]
Referral entered in [facility]
Patient resides at [facility] with spouse Owen, 0 steps
PLOF: Independent, recently with migdalia at [facility]
DME: [facility]
Denies VN in past - came from [facility] after last hospitalization
PCP: Sachin Duncan
Pharmacy: [facility]
PLAN: return to [facility]
--- NOTE | 2024-10-18 12:51 | W.PN.HOSP.TC ---
Addendum entered and electronically signed by Saran Renae DO 10/18/24 13:35:
#Moderate right sized pleural effusion
-Incidentally seen on CT A/P
-No dyspnea or hypoxemia, not contributing to this hospitalization
-Will monitor his respiratory status, consider Dx/Tx thoracentesis
-Will repeat x-ray in the morning to assess for worsening
#Acute nondisplaced right rib fractures (Ribs 3/6/7)
-Will continue with as needed analgesics and supportive management
-Ordered lidocaine patch
#Acute transverse nondisplaced S4 vertebral fracture
-Not complaining of any pain though mental status limits ROS
-Will continue with as needed analgesics as above
-Will speak to orthopedics about weightbearing restrictions if needed
Original Note:
Today's Communication/Plan
-
Check urine studies
Repeat BMP
Continue fluid restriction and salt tabs
Nephrology consult
PT/OT
Assessment / Plan
Assessment / Plan
#Acute on chronic euvolemic hyponatremia
-Suspected polydipsia with his dementia, no recent urine studies to review
-Baseline sodium near 130 with chronic 1200 mL fluid restriction daily
-Question if his mental status may be partially related to his hyponatremia
-Sodium levels here 124�121�125�122, appears euvolemic
-Will repeat BMP at 4 PM today, continue to trend
-Order urine studies to assess for ADH response
-Continue fluid restriction and sodium chloride tabs
-Nephrology consult
#Mechanical fall
-CT head and pelvic x-ray unremarkable
-PT/OT, anticipate return to SNF
#Recent first seizure event
-Happened on recent hospitalization, C/B Dane's paralysis
-Was not started on antiepileptic regimen due to first event
-Was noted to have tonic/clonic qualities, no seizure activity here
#Alzheimer's disease with behavioral disturbance
-Per case management, states he was independent weeks to months ago
-Question if this history is true as his dementia does appear advanced
-Home regimen includes rivastigmine, Risperdal, sertraline, memantine, Ativan
-Monitor his mental status
#Iron deficiency anemia
#Vitamin D deficiency
#Vitamin B12 deficiency
-Remains on vitamin B12 and D3 supplement, no oral iron per med history
-Hemoglobin here near 11 with MCV 79.8
-Will add on iron panel to a.m. labs on 10/19
-Trend CBC
#GERD/hiatal hernia
-Home medications include pantoprazole
-No known history of Lawler's esophagus or erosive disease
#BPH
-Not currently on medications
#H/O diverticuli
DVT prophylaxis: Subcutaneous heparin
Diet: Regular, 40 ounce free water restriction
CODE STATUS: DNR
Anticipated Discharge: 24 - 48 hours
Subjective/Interval History
-
Date of Service: October 18, 2024
Seen and examined at the bedside. No acute events reported overnight. AFVSS this morning
Sodium continues to fluctuate in the range of 121-125
ROS limited from patient's current mental status/likely advanced dementia
Objective Data
-
Labs:
Laboratory Results
10/18/24 10/18/24
06:15 16:00
WBC 9.0
Hgb 11.0 L
Hct 32.3 L
Plt Count 419 H
Sodium 122 L Pending
Potassium 4.0 Pending
Chloride 90 L Pending
Carbon Dioxide 20 L Pending
BUN 9 Pending
Creatinine 0.5 L Pending
Glucose 80 Pending
Calcium 8.4 Pending
Total Bilirubin 1.3
AST 30
ALT 20
Alkaline Phosphatase 94
Vital Signs:
Vital Signs
Temp Pulse Resp BP Pulse Ox
98.3 F 86 18 170/83 95
10/18/24 08:16 10/18/24 08:16 10/18/24 08:16 10/18/24 08:16 10/18/24 08:16
I&O
10/17/24 10/18/24 10/19/24
06:59 06:59 06:59
Intake Total 850 / 850 800 / 800
Balance 850 / 850 800 / 800
Review of Systems
-
History Source: Patient
All other systems: Reviewed and negative
Physical Exam
-
General: Well Developed, No Apparent Distress and Comfortable
HEENT: Normocephalic, Atraumatic, Moist Mucous Membranes, Anicteric and PERRLA
Respiratory: Clear to Auscultation and Non Labored Respirations
Cardiac: Regular Rhythm, S1/S2 and Murmur; Negative Rub or Gallop
GI: Soft, Nontender, Nondistended and Normal Bowel Sounds
Musculoskeletal: No Clubbing, No Cyanosis and No Edema
Neuro: Nonfocal/Grossly Intact and Other (AAO x 0); Negative AO x 3
Psych: Calm
Data Reviewed
-
Labs: Labs Reviewed by me and Discussed with Physician (Nephrology)
[2024-10-18 13:43] LABS: Osmolality Urine 468 mOsm/kg (300-900)
[2024-10-18 14:03] LABS: Urine Sodium 49 mmol/L (30-90)
--- NOTE | 2024-10-18 14:20 | W.CON.NEPH ---
Consultation
-
Date/Time Consultation Requested: 10/18/2024 1 PM
Date/Time Consultation Performed: 10/18/2024 2 PM
Requesting Provider: Dr. Renae
Performing Provider: Dr. Barry
Reason for Consultation: Hyponatremia
Medical History
-
Chief Complaint: Fall
History of Present Illness:
This is an 84-year-old gentleman who has baseline dementia on memantine therapy as well as chronic hyponatremia on sodium chloride tablets twice daily. He typically runs a sodium level around 130. He was brought to the hospital because of a fall
at rehab and complained of hip and wrist pain. After admission imaging studies were performed which had shown multiple rib fractures as well as an S4 fracture. His sodium level has worsened while here down to 122 and we are asked to assist with
management of the hyponatremia. He is also hypertense and does not typically take antihypertensive medications.
Past Medical History
Alzheimer's dementia, GERD, hiatal hernia, hyponatremia, seizure disorder, diverticulitis, anemia, BPH
Social History
Tobacco: Non-Smoker
Alcohol: None
Family History
Family History: Not Pertinent
Allergies / Home Medications
Allergy/AdvReac Type Severity Reaction Status Date / Time
tetracycline Allergy Rash Verified 10/17/24 16:39
�Medication �Instructions �Recorded �Confirmed �Type
memantine 28 mg capsule 28 mg PO QPM Alzhemimer's dementia 06/25/23 10/17/24 History
sprinkle,extended release 24hr
rivastigmine tartrate 1.5 mg 1.5 mg PO BID Alzhemimer's dementia 06/25/23 10/17/24 History
capsule
sertraline 100 mg tablet 100 mg PO QPM Alzhemimer's dementia 06/25/23 10/17/24 History
pantoprazole 40 mg tablet,delayed 40 mg PO BID Gastrointestinal Issue 10/03/24 10/17/24 History
release (Protonix)
cholecalciferol (vitamin D3) 125 125 mcg PO DAILY Supplement #30 10/12/24 10/17/24 Rx
mcg (5,000 unit) tablet tabs
lorazepam 0.5 mg tablet 0.25 mg (1/2 x 0.5 mg) PO DAILY 10/12/24 10/17/24 Rx
PRN agitation #1 tab
acetaminophen 325 mg tablet 650 mg PO Q4H PRN pain/ fever 10/17/24 10/17/24 History
(Tylenol)
bisacodyl 10 mg rectal suppository 10 mg SD DAILY PRN constipation 10/17/24 10/17/24 History
(Dulcolax (bisacodyl))
cyanocobalamin (vitamin B-12) 1,000 mcg PO DAILY Supplement 10/17/24 10/17/24 History
1,000 mcg tablet (Vitamin B-12)
magnesium hydroxide 400 mg/5 mL 30 ml PO DAILY PRN constipation 10/17/24 10/17/24 History
oral suspension (Milk of Magnesia)
risperidone 0.5 mg tablet 0.5 mg PO HS Mental Health/Anxiety 10/17/24 10/17/24 History
sodium chloride 1,000 mg soluble 500 mg PO BID Supplement 10/17/24 10/17/24 History
tablet
sodium phosphates 19 gram-7 ml SD PRN constipation 10/17/24 History
gram/118 mL enema (Fleet Enema)
Review of Systems
-
No excessive thirst, no diarrhea. No fevers chills or sweats. No chest pain or shortness of breath. He denies any pain.
All other systems: Negative unless noted
Physical Exam
Vital Signs
Vital Signs
Temp Pulse Resp BP Pulse Ox
98.3 F 86 18 170/83 95
10/18/24 08:16 10/18/24 08:16 10/18/24 08:16 10/18/24 08:16 10/18/24 08:16
Lab Results
WBC 9.0 10^3/uL (4.8-10.8) 10/18/24 06:15
RBC 4.05 10^6/uL (4.70-6.10) L 10/18/24 06:15
Hgb 11.0 g/dL (13.0-18.0) L 10/18/24 06:15
Hct 32.3 % (39.0-52.0) L 10/18/24 06:15
Plt Count 419 10^3/uL (130-400) H 10/18/24 06:15
eGFR > 60.00 10/18/24 06:15
Albumin 3.7 g/dl (3.5-5.0) 10/18/24 06:15
Laboratory Tests
10/11/24 10/18/24 10/18/24
05:55 06:15 13:12
Sodium 130 L 122 L
Creatinine 0.5 L
Urine Osmolality 468
Urine Sodium 49
CT abdomen pelvis on 10/17/2024
IMPRESSION:
1. Acute nondisplaced fractures of the right lateral 6h and 7h ribs.
2. Moderate-sized right pleural effusion.
3. Acute transverse nondisplaced fracture of the S4 vertebral segment with a small amount of extraperitoneal hemorrhage and edema in the presacral space.
4. Moderate-sized paraesophageal hiatal hernia.
5. Cholelithiasis.
6. Mild colonic diverticulosis.
7. Previous sigmoidectomy.
8. Mild mesenteric panniculitis.
9. Moderate to severe enlargement of the prostate gland.
10. Severe calcific atherosclerotic plaque in the coronary arteries.
.
CT cervical spine 10/17/2024
IMPRESSION:
1. ACUTE NONDISPLACED FRACTURE of the RIGHT POSTERIOR 3d RIB.
2. No CT evidence for pneumothorax.
3. Severe discogenic degenerative disease at C5/C6 and C6/C7 with disc-osteophyte complexes causing mild spinal cord compression, mild central canal stenosis, and severe bilateral neural foraminal narrowing at both levels.
4. Severe left-sided facet joint arthrosis at C3/C4 and C4/C5 with associated mild anterolistheses.
5. Severe right neural foraminal narrowing at C3/C4.
Physical Exam
Patient is awake alert oriented and in no distress. Mood and affect were pleasant, insight and judgment were good. Pupils are equal round and reactive to light, extraocular movements are intact, sclera were anicteric. Hearing was normal, ears and
nose are intact. Oropharynx was clear. Neck was supple with trachea midline and no thyromegaly. Heart was regular rate and rhythm without rubs. Lower extremities without edema. Lungs were clear to auscultation bilaterally and with normal
excursion. Abdomen was soft, nontender, with normal active bowel sounds, and no hepatosplenomegaly. Skin was without rash and with normal turgor.
Data Reviewed
-
CT Scan: Report Reviewed by me
Medical Tests (Nuc Med, Echo etc): Image Personally Visualized and interpreted (EKG on 10/03/2024 by my read shows normal sinus rhythm septal Q)
Labs: Labs Reviewed by me
Old Records: Reviewed
Assessment/Plan
-
Assessment
Right pleural effusion
Acute on chronic hyponatremia
Hypertension
Dementia
fall
Right rib fractures 367
S4 vertebral fracture
Plan
Urine studies suggest excess ADH
He is acute on chronic hyponatremia may be potentiated by fall and pain
While he would be a candidate for Samsca based on laboratory values, his mental status is unreliable
Therefore we will give hypertonic saline at this time with serial BMP
Salt tablets may be continued he may likely benefit from the addition of Lasix as well
[2024-10-18] MEDS: SODIUM CHLORIDE 3% 250 IV (14:44)
[2024-10-18] MEDS: LIDOCAINE 4% PATCH 1 PATCH TOPICAL (14:44)
[2024-10-18 15:01] VITALS: BP 148/82
[2024-10-18 15:04] VITALS: BP 148/82
[2024-10-18] MEDS: ZOLOFT 100 MG PO (16:58)
[2024-10-18 20:37] LABS: Blood Urea Nitrogen 8 mg/dl (9-20); Calcium 8.6 mg/dl (8.4-10.2); Carbon Dioxide 23 mmol/L (22-30); Chloride 92 mmol/L (98-107); Glucose 97 mg/dl (70-99); Sodium 120 mmol/L (135-145); eGFR > 60.00
[2024-10-18] MEDS: RISPERDAL 0.5 MG PO (21:05)
[2024-10-18] MEDS: LASIX 20 MG IV (21:21)
[2024-10-18 23:11] VITALS: BP 151/73
[2024-10-18 23:24] LABS: Blood Urea Nitrogen 6 mg/dl (9-20); Calcium 8.9 mg/dl (8.4-10.2); Carbon Dioxide 23 mmol/L (22-30); Chloride 94 mmol/L (98-107); Glucose 102 mg/dl (70-99); Potassium 3.9 mmol/L (3.5-5.1); Sodium 124 mmol/L (135-145); eGFR > 60.00
[2024-10-19 03:42] VITALS: BP 121/63
[2024-10-19 06:34] LABS: % Basophils 1.1 % (0-2); % Eosinophils 1.9 % (0-6); % Immature Granulocytes 0.4 % (0-0.5); % Lymphocytes 36.3 % (20.5-51.1); % Monocytes 14.4 % (1.7-9.3); % Neutrophils 45.9 % (42.2-75.2); Absolute Basophils 0.1 10^3/uL (0-0.2); Absolute Eosinophils 0.1 10^3/uL (0-0.7); Absolute Lymphocytes 2.7 10^3/uL (1.2-3.4); Absolute Monocytes 1.1 10^3/uL (0.1-0.6); Absolute Neutrophils 3.4 10^3/uL (1.4-6.5); Hematocrit 35.7 % (39.0-52.0); Hemoglobin 11.7 g/dL (13.0-18.0); Mean Corp Hgb Conc. 32.8 g/dL (33.0-37.0); Mean Corpuscular Hgb 26.7 pg (27.0-31.0); Mean Corpuscular Volume 81.3 fL (80.0-94.0); Mean Platelet Volume 8.9 fL (7.4-10.4); Nucleated Red Blood Cells % 0 % (-); Platelet Count 424 10^3/uL (130-400); Red Blood Cell Count 4.39 10^6/uL (4.70-6.10); Red Cell Dist. Width 14.4 % (11.5-14.5); White Blood Cell Count 7.4 10^3/uL (4.8-10.8)
[2024-10-19 06:52] LABS: Blood Urea Nitrogen 7 mg/dl (9-20); Calcium 8.8 mg/dl (8.4-10.2); Carbon Dioxide 24 mmol/L (22-30); Chloride 95 mmol/L (98-107); Glucose 88 mg/dl (70-99); Potassium 4.4 mmol/L (3.5-5.1); Sodium 125 mmol/L (135-145); eGFR > 60.00
--- NOTE | 2024-10-19 07:13 | PTCARENOTE ---
Received patient with 3% NSS infusing. NA to 120. TT to [employer], covering floor. Lasix order and repeat BMP per Nephrology order. Patient on tele per order NSR. NA at 23:00 to 124. Reported to [employer], covering floor.
[2024-10-19 07:35] VITALS: BP 152/77
[2024-10-19] MEDS: PROTONIX 40 MG PO ×2 (08:45→20:50)
[2024-10-19] MEDS: EXELON 1.5 MG PO ×2 (08:45→20:50)
[2024-10-19] MEDS: VITAMIN B-12 1000 MCG PO (08:45)
[2024-10-19] MEDS: SODIUM CHLORIDE 0.5 GRAM PO ×2 (08:45→20:50)
[2024-10-19] MEDS: HEPARIN 5000 UNITS SC ×2 (08:46→20:51)
[2024-10-19] MEDS: NAMENDA 10 MG PO ×2 (08:46→20:51)
[2024-10-19] MEDS: LIDOCAINE 4% PATCH 1 PATCH TOPICAL (08:46)
[2024-10-19] MEDS: VITAMIN D3 (cholecalciferol) 125 MCG PO (08:47)
--- NOTE | 2024-10-19 10:34 | CM ---
Requested PT OT for pt by .
Pt had prior 3 day inpatient stay with in 30 days.
He was at [facility] recently with in 30 days.
PLAN To [facility]
[2024-10-19 11:10] VITALS: BP 134/81
--- NOTE | 2024-10-19 11:34 | W.PN.NEPH.PH ---
Today's Communication / Plan
-
Tolvaptan 7.5 mg p.o. x 1
Maintain fluid restriction and salt tablet
Assessment/Plan
-
Assessment
Right pleural effusion
Acute on chronic hyponatremia
Hypertension
Dementia
fall
Right rib fractures 367
S4 vertebral fracture
Plan
Sodium only up from 122 to -125
Will provide tolvaptan 7.5 mg p.o. x 1
Urine studies suggest excess ADH as urine OSM 468
Remains on fluid restriction
He is acute on chronic hyponatremia may be potentiated by fall and pain
While he would be a candidate for Samsca based on laboratory values, his mental status is unreliable
Therefore we gave him hypertonic saline at this time with serial BMP
Salt tablets may be continued he may likely benefit from the addition of Lasix as well
-
-
Date of Service: October 19, 2024
CC / HPI / ROS
-
Chief Complaint:
Hyponatremia
History of Present Illness:
Serum sodium rise from 09 16-09 19 following 3% saline infusion
Hemodynamically stable
Review of Systems:
Pleasantly demented
No reported chest pain and/or shortness of breath
condom catheter
Labs
-
Labs:
WBC 7.4 10^3/uL (4.8-10.8) 10/19/24 05:32
RBC 4.39 10^6/uL (4.70-6.10) L 10/19/24 05:32
Hgb 11.7 g/dL (13.0-18.0) L 10/19/24 05:32
Hct 35.7 % (39.0-52.0) L 10/19/24 05:32
Plt Count 424 10^3/uL (130-400) H 10/19/24 05:32
Sodium 125 mmol/L (135-145) L 10/19/24 05:32
Potassium 4.4 mmol/L (3.5-5.1) 10/19/24 05:32
Chloride 95 mmol/L (98-107) L 10/19/24 05:32
Carbon Dioxide 24 mmol/L (22-30) 10/19/24 05:32
BUN 7 mg/dl (9-20) L 10/19/24 05:32
Creatinine 0.6 mg/dL (0.7-1.3) L 10/19/24 05:32
eGFR > 60.00 10/19/24 05:32
Glucose 88 mg/dl (70-99) 10/19/24 05:32
Calcium 8.8 mg/dl (8.4-10.2) 10/19/24 05:32
Albumin 3.7 g/dl (3.5-5.0) 10/18/24 06:15
Physical Exam
-
Vital Signs:
Vital Signs
Temp Pulse Resp BP Pulse Ox
98.2 F 89 18 134/81 97
10/19/24 11:10 10/19/24 11:10 10/19/24 11:10 10/19/24 11:10 10/19/24 11:10
Cardiovascular:: Regular rate and rhythm
Respiratory:: Bilateral: CTA
Lung Excursion:: Normal
Abdomen:: Nontender and Soft
Bowel Sounds:: Normal
Extremity Edema:: None: Bilateral:
[2024-10-19] MEDS: SAMSCA 7.5 MG PO (12:10)
--- NOTE | 2024-10-19 14:11 | W.PN.HOSP.TC ---
Today's Communication/Plan
-
Samsca
Follow BMP.
Right chest ultrasound to assess pleural effusion.
Physical therapy assessment
Assessment / Plan
Assessment / Plan
Impression:
Acute on chronic euvolemic hyponatremia
Altered mental status, encephalopathy likely multifactorial
Status post fall with displaced posterior right third and fourth rib fracture
Mechanical vertebral fracture, status post fall
Right pleural effusion by imaging/CT scan.
Other conditions:
Recent admission with seizure first episode with unrevealing workup currently not on antiepileptic medications.
Dementia/Alzheimer type.
Chronic anemia with iron deficiency
BPH
Plan
#Acute on chronic euvolemic hyponatremia
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
Status post 3% solution given
Sodium improved 120�125
Status post Samsca on 10/19
#Mechanical fall
Right posterior displaced third and fourth rib fracture
CT abdomen pelvis admission consistent with right-sided pleural effusion
Currently asymptomatic
Follow-up chest x-ray in 10/19 with normal lung lafleur and no visible pleural fluid
Exam consistent with decreased breath sounds on the right upper to midlung
Will check chest ultrasound to assess pleural effusion
-CT head and pelvic x-ray unremarkable
-PT/OT, anticipate return to SNF
#Recent first seizure event
-Happened on recent hospitalization, C/B Adne's paralysis
-Was not started on antiepileptic regimen due to first event
-Was noted to have tonic/clonic qualities, no seizure activity here
#Alzheimer's disease with behavioral disturbance
-Per case management, states he was independent weeks to months ago
-Question if this history is true as his dementia does appear advanced
-Home regimen includes rivastigmine, Risperdal, sertraline, memantine, Ativan
-Monitor his mental status
#Iron deficiency anemia
#Vitamin D deficiency
#Vitamin B12 deficiency
-Remains on vitamin B12 and D3 supplement, no oral iron per med history
-Hemoglobin here near 11 with MCV 79.8
-Will add on iron panel to a.m. labs on 10/19
-Trend CBC
#GERD/hiatal hernia
-Home medications include pantoprazole
-No known history of Lawler's esophagus or erosive disease
#BPH
-Not currently on medications
#H/O diverticuli
DVT prophylaxis: Subcutaneous heparin
Diet: Regular, 40 ounce free water restriction
CODE STATUS: DNR
Anticipated Discharge: 24 - 48 hours
Subjective/Interval History
-
Date of Service: October 19, 2024
Objective Data
-
Labs:
Laboratory Results
10/19/24
05:32
WBC 7.4
Hgb 11.7 L
Hct 35.7 L
Plt Count 424 H
Sodium 125 L
Potassium 4.4
Chloride 95 L
Carbon Dioxide 24
BUN 7 L
Creatinine 0.6 L
Glucose 88
Calcium 8.8
Vital Signs:
Vital Signs
Temp Pulse Resp BP Pulse Ox
98.2 F 89 18 134/81 97
10/19/24 11:10 10/19/24 11:10 10/19/24 11:10 10/19/24 11:10 10/19/24 11:10
I&O
10/18/24 10/19/24 10/20/24
06:59 06:59 06:59
Intake Total 850 / 850 1200 / 1200
Output Total 1600 / 1600
Balance 850 / 850 -400 / -400
Physical Exam
-
General: Well Developed, No Apparent Distress and Comfortable
HEENT: Normocephalic, Atraumatic, Moist Mucous Membranes, Anicteric and PERRLA
Respiratory: Clear to Auscultation and Non Labored Respirations
Cardiac: Regular Rhythm, S1/S2 and Murmur; Negative Rub or Gallop
GI: Soft, Nontender, Nondistended and Normal Bowel Sounds
Musculoskeletal: No Clubbing, No Cyanosis and No Edema
Neuro: Nonfocal/Grossly Intact and Other (AAO x 0); Negative AO x 3
Psych: Calm
[2024-10-19 15:15] VITALS: BP 166/87
[2024-10-19] MEDS: ZOLOFT 100 MG PO (17:03)
[2024-10-19 19:01] VITALS: BP 159/92
[2024-10-19] MEDS: RISPERDAL 0.5 MG PO (20:51)
[2024-10-19 23:40] VITALS: BP 118/84
[2024-10-20] VITALS (7 sets, daily range): BP systolic 118–168; BP diastolic 69–93; PULSE 70–76; O2SAT 95
[2024-10-20] MEDS: ATIVAN 0.25 MG PO (00:05)
[2024-10-20 07:11] LABS: Blood Urea Nitrogen 6 mg/dl (9-20); Calcium 9.2 mg/dl (8.4-10.2); Carbon Dioxide 25 mmol/L (22-30); Chloride 98 mmol/L (98-107); Glucose 96 mg/dl (70-99); Potassium 4.2 mmol/L (3.5-5.1); Sodium 131 mmol/L (135-145); eGFR > 60.00
[2024-10-20] MEDS: SODIUM CHLORIDE 0.5 GRAM PO ×2 (09:13→20:22)
[2024-10-20] MEDS: EXELON 1.5 MG PO ×2 (09:14→20:22)
[2024-10-20] MEDS: NAMENDA 10 MG PO ×2 (09:15→20:22)
[2024-10-20] MEDS: LIDOCAINE 4% PATCH 1 PATCH TOPICAL (09:15)
[2024-10-20] MEDS: VITAMIN D3 (cholecalciferol) 125 MCG PO (09:15)
[2024-10-20] MEDS: VITAMIN B-12 1000 MCG PO (09:15)
[2024-10-20] MEDS: PROTONIX 40 MG PO ×2 (09:15→20:22)
[2024-10-20] MEDS: HEPARIN 5000 UNITS SC ×2 (09:16→20:25)
--- NOTE | 2024-10-20 13:49 | PN.CDI ---
CDI
- -
CDI:
Physician Documentation Request
Admit Date: 10/19/24 14:08
Dear Doctor Reginaldo,
Progress notes include a diagnosis of status post fall with displaced posterior right third and fourth rib fracture
Cervical spine ct reports 'The bones appear diffusely demineralized'
Please provide further specificity regarding the diagnosis of fracture:
Etiology
Traumatic
Pathologic due to osteoporosis
Pathologic due to other disease (please specify)
Due to a combination of trauma and a pathological process
but the trauma alone would not likely have been sufficient
to cause the fracture
Use of terms such as suspected, likely, concern for, or probable (associated with a specific diagnosis that is being evaluated, monitored, or treated as if it exists) are acceptable and can be coded in the inpatient setting, when documented at the
time of discharge.
Thank you,
Gayle Camarena RN, BSN
CDI Specialist
tiger text
Please use your independent medical judgment in providing your response.
--- NOTE | 2024-10-20 14:34 | W.PN.NEPH.PH ---
Today's Communication / Plan
-
Follow BMP
Maintain sodium tablets and fluid restriction
Assessment/Plan
-
Assessment
Right pleural effusion
Acute on chronic hyponatremia
Hypertension
Dementia
fall
Right rib fractures 367
S4 vertebral fracture
Plan
Sodium only up from 122 to -125 ot 131 following tolvaptan given on 10/19
Urine studies suggest excess ADH as urine OSM 468
Remains on fluid restriction
He is acute on chronic hyponatremia may be potentiated by fall and pain
Salt tablets may be continued he may likely benefit from the addition of Lasix as well
Zoloft not helping hyponatremia issue, ? if this could be reduced
-
-
Date of Service: October 20, 2024
CC / HPI / ROS
-
Chief Complaint:
Hyponatremia
History of Present Illness:
Serum sodium rise from 09 16-09 19 following 3% saline infusion, now up to 131 after tolvaptan given on 10/19
Hemodynamically stable
Review of Systems:
Pleasantly demented
No reported chest pain and/or shortness of breath
condom catheter
Labs
-
Labs:
WBC 7.4 10^3/uL (4.8-10.8) 10/19/24 05:32
RBC 4.39 10^6/uL (4.70-6.10) L 10/19/24 05:32
Hgb 11.7 g/dL (13.0-18.0) L 10/19/24 05:32
Hct 35.7 % (39.0-52.0) L 10/19/24 05:32
Plt Count 424 10^3/uL (130-400) H 10/19/24 05:32
Sodium 131 mmol/L (135-145) L 10/20/24 05:54
Potassium 4.2 mmol/L (3.5-5.1) 10/20/24 05:54
Chloride 98 mmol/L (98-107) 10/20/24 05:54
Carbon Dioxide 25 mmol/L (22-30) 10/20/24 05:54
BUN 6 mg/dl (9-20) L 10/20/24 05:54
Creatinine 0.6 mg/dL (0.7-1.3) L 10/20/24 05:54
eGFR > 60.00 10/20/24 05:54
Glucose 96 mg/dl (70-99) 10/20/24 05:54
Calcium 9.2 mg/dl (8.4-10.2) 10/20/24 05:54
Albumin 3.7 g/dl (3.5-5.0) 10/18/24 06:15
Physical Exam
-
Vital Signs:
Vital Signs
Temp Pulse Resp BP Pulse Ox
97.3 F 75 20 136/70 94
10/20/24 11:55 10/20/24 11:55 10/20/24 11:55 10/20/24 11:55 10/20/24 11:55
Cardiovascular:: Regular rate and rhythm
Respiratory:: Bilateral: CTA
Lung Excursion:: Normal
Abdomen:: Nontender and Soft
Bowel Sounds:: Normal
Extremity Edema:: None: Bilateral:
--- NOTE | 2024-10-20 16:39 | CM ---
Pt confused .Pt on 1:1 .
Pt pleasantly confused .
Spoke with SO at bedside.
[facility] bed hold.
PLAN To [facility] at ct.
--- NOTE | 2024-10-20 16:48 | W.PN.HOSP.TC ---
Today's Communication/Plan
-
Free water restriction
SoluTabs.
Follow BMP.
Right chest ultrasound to evaluate pleural effusion
Assessment / Plan
Assessment / Plan
Impression:
Acute on chronic euvolemic hyponatremia
Altered mental status, encephalopathy likely multifactorial
Status post fall with displaced posterior right third and fourth rib fracture
Mechanical vertebral fracture, status post fall
Right pleural effusion by imaging/CT scan.
Other conditions:
Recent admission with seizure first episode with unrevealing workup currently not on antiepileptic medications.
Dementia/Alzheimer type.
Chronic anemia with iron deficiency
BPH
Plan
#Acute on chronic euvolemic hyponatremia
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
Status post 3% solution given
Sodium improved 120�125-131
Status post Samsca on 10/19
Maintain free water restriction
Continue sodium tabs
#Mechanical fall
Right posterior displaced third and fourth rib fracture
CT abdomen pelvis admission consistent with right-sided pleural effusion
Currently asymptomatic
Follow-up chest x-ray in 10/19 with normal lung lafleur and no visible pleural fluid
Exam consistent with decreased breath sounds on the right upper to midlung
Will check chest ultrasound to assess pleural effusion
-CT head and pelvic x-ray unremarkable
-PT/OT, anticipate return to SNF
#Recent first seizure event
-Happened on recent hospitalization, C/B Dane's paralysis
-Was not started on antiepileptic regimen due to first event
-Was noted to have tonic/clonic qualities, no seizure activity here
#Alzheimer's disease with behavioral disturbance
-Per case management, states he was independent weeks to months ago
-Question if this history is true as his dementia does appear advanced
-Home regimen includes rivastigmine, Risperdal, sertraline, memantine, Ativan
-Monitor his mental status
#Iron deficiency anemia
#Vitamin D deficiency
#Vitamin B12 deficiency
-Remains on vitamin B12 and D3 supplement, no oral iron per med history
-Hemoglobin here near 11 with MCV 79.8
-Will add on iron panel to a.m. labs on 10/19
-Trend CBC
#GERD/hiatal hernia
-Home medications include pantoprazole
-No known history of Lawler's esophagus or erosive disease
#BPH
-Not currently on medications
#H/O diverticuli
DVT prophylaxis: Subcutaneous heparin
Diet: Regular, 40 ounce free water restriction
CODE STATUS: DNR
Anticipated Discharge: 24 - 48 hours
Subjective/Interval History
-
Date of Service: October 20, 2024
Objective Data
-
Labs:
Laboratory Results
10/20/24
05:54
Sodium 131 L
Potassium 4.2
Chloride 98
Carbon Dioxide 25
BUN 6 L
Creatinine 0.6 L
Glucose 96
Calcium 9.2
Vital Signs:
Vital Signs
Temp Pulse Resp BP Pulse Ox
98.3 F 68 16 168/93 95
10/20/24 15:55 10/20/24 15:55 10/20/24 15:55 10/20/24 15:55 10/20/24 15:55
I&O
10/19/24 10/20/24 10/21/24
06:59 06:59 06:59
Intake Total 1200 / 1200 960 / 960
Output Total 1600 / 1600 1999 / 1999
Balance -400 / -400 -1040 / -1040
Physical Exam
-
General: Well Developed, No Apparent Distress and Comfortable
HEENT: Normocephalic, Atraumatic, Moist Mucous Membranes, Anicteric and PERRLA
Respiratory: Clear to Auscultation and Non Labored Respirations
Cardiac: Regular Rhythm, S1/S2 and Murmur; Negative Rub or Gallop
GI: Soft, Nontender, Nondistended and Normal Bowel Sounds
Musculoskeletal: No Clubbing, No Cyanosis and No Edema
Neuro: Nonfocal/Grossly Intact and Other (AAO x 0); Negative AO x 3
Psych: Calm
[2024-10-20] MEDS: ZOLOFT 100 MG PO (18:29)
[2024-10-20] MEDS: RISPERDAL 0.5 MG PO (20:22)
[2024-10-21] MEDS: ATIVAN 0.25 MG PO (00:05)
[2024-10-21 03:20] VITALS: BP 145/82
[2024-10-21 07:17] LABS: Blood Urea Nitrogen 10 mg/dl (9-20); Calcium 9.1 mg/dl (8.4-10.2); Carbon Dioxide 25 mmol/L (22-30); Chloride 97 mmol/L (98-107); Glucose 94 mg/dl (70-99); Potassium 4.4 mmol/L (3.5-5.1); Sodium 128 mmol/L (135-145); eGFR > 60.00
[2024-10-21 07:20] VITALS: BP 146/58
[2024-10-21] MEDS: NAMENDA 10 MG PO ×2 (09:20→20:45)
[2024-10-21] MEDS: SODIUM CHLORIDE 0.5 GRAM PO ×2 (09:20→20:45)
[2024-10-21] MEDS: EXELON 1.5 MG PO ×2 (09:20→20:45)
[2024-10-21] MEDS: PROTONIX 40 MG PO ×2 (09:20→20:45)
[2024-10-21] MEDS: HEPARIN 5000 UNITS SC ×2 (09:21→20:45)
[2024-10-21] MEDS: LIDOCAINE 4% PATCH 1 PATCH TOPICAL (09:21)
[2024-10-21] MEDS: VITAMIN B-12 1000 MCG PO (09:21)
[2024-10-21] MEDS: VITAMIN D3 (cholecalciferol) 125 MCG PO (09:21)
--- NOTE | 2024-10-21 09:36 | PN.CDI ---
CDI
- -
CDI:
Physician Documentation Request
Admit Date: 10/19/24 14:08
Dear Doctor Reginaldo,
Patient admitted due to altered mental status, fall and hyponatremia.
Patient has a history of Alzheimer's disease/dementia with behavioral disturbance
Impression in progress note includes '....encephalopathy likely multifactorial'
Please further specify the etiology of the encephalopathy:
metabolic
toxic metabolic
Other
Use of terms such as suspected, likely, concern for, or probable (associated with a specific diagnosis that is being evaluated, monitored, or treated as if it exists) are acceptable and can be coded in the inpatient setting, when documented at the
time of discharge.
Thank you,
Gayle Camarena RN, BSN
CDI Specialist
tiger text
Please use your independent medical judgment in providing your response.
[2024-10-21 11:15] VITALS: BP 139/70
--- NOTE | 2024-10-21 12:05 | W.PN.NEPH.PH ---
Today's Communication / Plan
-
samsca
Assessment/Plan
-
Assessment
Right pleural effusion
Acute on chronic hyponatremia
Hypertension
Dementia
fall
Right rib fractures 367
S4 vertebral fracture
Plan
[facility] today
[facility]
follow BMP
-
-
Date of Service: October 21, 2024
CC / HPI / ROS
-
Chief Complaint:
Hyponatremia
History of Present Illness:
Na down to 128
last samsca 10/19
Hemodynamically stable
constipated
Review of Systems:
Pleasantly demented
No reported chest pain and/or shortness of breath
condom catheter
Labs
-
Labs:
WBC 7.4 10^3/uL (4.8-10.8) 10/19/24 05:32
RBC 4.39 10^6/uL (4.70-6.10) L 10/19/24 05:32
Hgb 11.7 g/dL (13.0-18.0) L 10/19/24 05:32
Hct 35.7 % (39.0-52.0) L 10/19/24 05:32
Plt Count 424 10^3/uL (130-400) H 10/19/24 05:32
Sodium 128 mmol/L (135-145) L 10/21/24 06:24
Potassium 4.4 mmol/L (3.5-5.1) 10/21/24 06:24
Chloride 97 mmol/L (98-107) L 10/21/24 06:24
Carbon Dioxide 25 mmol/L (22-30) 10/21/24 06:24
BUN 10 mg/dl (9-20) 10/21/24 06:24
Creatinine 0.6 mg/dL (0.7-1.3) L 10/21/24 06:24
eGFR > 60.00 10/21/24 06:24
Glucose 94 mg/dl (70-99) 10/21/24 06:24
Calcium 9.1 mg/dl (8.4-10.2) 10/21/24 06:24
Albumin 3.7 g/dl (3.5-5.0) 10/18/24 06:15
Physical Exam
-
Vital Signs:
Vital Signs
Temp Pulse Resp BP Pulse Ox
98.1 F 64 16 146/58 95
10/21/24 07:20 10/21/24 07:20 10/21/24 07:20 10/21/24 07:20 10/21/24 07:20
Cardiovascular:: Regular rate and rhythm
Respiratory:: Bilateral: Coarse
Lung Excursion:: Normal
Abdomen:: Nontender and Soft
Bowel Sounds:: Normal
Extremity Edema:: None: Bilateral:
[2024-10-21] MEDS: SAMSCA 15 MG PO (12:30)
--- NOTE | 2024-10-21 14:48 | CM ---
Patient remains on 1:1.
Monitor labs.
PT/OT recommending skilled rehab.
Patient from [facility] (resident of independent living at [facility]). + bed hold.
Plan: back to [facility] skilled rehab once medically stable
--- NOTE | 2024-10-21 15:25 | W.PN.HOSP.TC ---
Today's Communication/Plan
-
Hyponatremia, persistent sodium 128
Continue free water restriction
Lasix.
Samsca
Assessment / Plan
Assessment / Plan
Impression:
Acute on chronic euvolemic hyponatremia
Altered mental status, encephalopathy likely multifactorial
Status post fall with displaced posterior right third and fourth rib fracture
Mechanical vertebral fracture, status post fall
Right pleural effusion by imaging/CT scan.
Other conditions:
Recent admission with seizure first episode with unrevealing workup currently not on antiepileptic medications.
Dementia/Alzheimer type.
Chronic anemia with iron deficiency
BPH
Plan
#Acute on chronic euvolemic hyponatremia
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
Status post 3% solution given
Sodium improved 120�125-131
Status post Samsca on 10/19, 10/21
Maintain free water restriction
Continue sodium tabs
#Mechanical fall
Right posterior displaced third and fourth rib fracture
CT abdomen pelvis admission consistent with right-sided pleural effusion
Currently asymptomatic
Follow-up chest x-ray in 10/19 with normal lung lafleur and no visible pleural fluid
Exam consistent with decreased breath sounds on the right upper to midlung
Will check chest ultrasound to assess pleural effusion
-CT head and pelvic x-ray unremarkable
-PT/OT, anticipate return to SNF
#Recent first seizure event
-Happened on recent hospitalization, C/B Dane's paralysis
-Was not started on antiepileptic regimen due to first event
-Was noted to have tonic/clonic qualities, no seizure activity here
#Alzheimer's disease with behavioral disturbance
-Per case management, states he was independent weeks to months ago
-Question if this history is true as his dementia does appear advanced
-Home regimen includes rivastigmine, Risperdal, sertraline, memantine, Ativan
-Monitor his mental status
#Iron deficiency anemia
#Vitamin D deficiency
#Vitamin B12 deficiency
-Remains on vitamin B12 and D3 supplement, no oral iron per med history
-Hemoglobin here near 11 with MCV 79.8
-Will add on iron panel to a.m. labs on 10/19
-Trend CBC
#GERD/hiatal hernia
-Home medications include pantoprazole
-No known history of Lawler's esophagus or erosive disease
#BPH
-Not currently on medications
#H/O diverticuli
DVT prophylaxis: Subcutaneous heparin
Diet: Regular, 40 ounce free water restriction
CODE STATUS: DNR
Anticipated Discharge: 24 - 48 hours
Subjective/Interval History
-
Date of Service: October 21, 2024
Objective Data
-
Labs:
Laboratory Results
10/21/24
06:24
Sodium 128 L
Potassium 4.4
Chloride 97 L
Carbon Dioxide 25
BUN 10
Creatinine 0.6 L
Glucose 94
Calcium 9.1
Vital Signs:
Vital Signs
Temp Pulse Resp BP Pulse Ox
98.5 F 73 16 139/70 96
10/21/24 11:15 10/21/24 11:15 10/21/24 11:15 10/21/24 11:15 10/21/24 12:55
I&O
10/20/24 10/21/24 10/22/24
06:59 06:59 06:59
Intake Total 960 / 960 840 / 840
Output Total 1999 425 / 425
Balance -1040 / -1040 415 / 415
Physical Exam
-
General: Well Developed, No Apparent Distress and Comfortable
HEENT: Normocephalic, Atraumatic, Moist Mucous Membranes, Anicteric and PERRLA
Respiratory: Clear to Auscultation and Non Labored Respirations
Cardiac: Regular Rhythm, S1/S2 and Murmur; Negative Rub or Gallop
GI: Soft, Nontender, Nondistended and Normal Bowel Sounds
Musculoskeletal: No Clubbing, No Cyanosis and No Edema
Neuro: Nonfocal/Grossly Intact and Other (AAO x 0); Negative AO x 3
Psych: Calm
[2024-10-21 15:40] VITALS: BP 120/99
[2024-10-21] MEDS: ZOLOFT 100 MG PO (17:19)
[2024-10-21 19:55] VITALS: BP 170/80
[2024-10-21] MEDS: RISPERDAL 0.5 MG PO (20:45)
[2024-10-21 23:14] VITALS: BP 130/80
[2024-10-22 03:45] VITALS: BP 178/85
[2024-10-22 07:35] VITALS: BP 165/79
[2024-10-22] MEDS: LIDOCAINE 4% PATCH 1 PATCH TOPICAL (08:29)
[2024-10-22] MEDS: HEPARIN 5000 UNITS SC (08:29)
[2024-10-22] MEDS: VITAMIN B-12 1000 MCG PO (08:29)
[2024-10-22] MEDS: NAMENDA 10 MG PO (08:29)
[2024-10-22] MEDS: PROTONIX 40 MG PO (08:29)
[2024-10-22] MEDS: EXELON 1.5 MG PO (08:29)
[2024-10-22] MEDS: SODIUM CHLORIDE 0.5 GRAM PO (08:30)
[2024-10-22] MEDS: VITAMIN D3 (cholecalciferol) 125 MCG PO (08:30)
[2024-10-22 08:44] LABS: Blood Urea Nitrogen 8 mg/dl (9-20); Calcium 9.3 mg/dl (8.4-10.2); Carbon Dioxide 28 mmol/L (22-30); Chloride 100 mmol/L (98-107); Glucose 93 mg/dl (70-99); Potassium 5.1 mmol/L (3.5-5.1); Sodium 134 mmol/L (135-145); eGFR > 60.00
[2024-10-22] MEDS: LASIX 20 MG PO (08:52)
[2024-10-22 10:03] VITALS: BP 167/79; BP 175/98; PULSE 68; O2SAT 95
[2024-10-22 11:01] VITALS: BP 133/80
--- NOTE | 2024-10-22 14:07 | W.PN.NEPH.PH ---
Today's Communication / Plan
-
follow BMP
Assessment/Plan
-
Assessment
Right pleural effusion
Acute on chronic hyponatremia
Hypertension
Dementia
fall
Right rib fractures 367
S4 vertebral fracture
Plan
started lasix
follow BMP
continue NaCl
-
-
Date of Service: October 22, 2024
CC / HPI / ROS
-
Chief Complaint:
Hyponatremia
History of Present Illness:
Na down up to 134 with samsca
last samsca 10/21
Hemodynamically stable
constipated
Review of Systems:
Pleasantly demented
No reported chest pain and/or shortness of breath
condom catheter
Labs
-
Labs:
WBC 7.4 10^3/uL (4.8-10.8) 10/19/24 05:32
RBC 4.39 10^6/uL (4.70-6.10) L 10/19/24 05:32
Hgb 11.7 g/dL (13.0-18.0) L 10/19/24 05:32
Hct 35.7 % (39.0-52.0) L 10/19/24 05:32
Plt Count 424 10^3/uL (130-400) H 10/19/24 05:32
Sodium 134 mmol/L (135-145) L 10/22/24 06:41
Potassium 5.1 mmol/L (3.5-5.1) 10/22/24 06:41
Chloride 100 mmol/L (98-107) 10/22/24 06:41
Carbon Dioxide 28 mmol/L (22-30) 10/22/24 06:41
BUN 8 mg/dl (9-20) L 10/22/24 06:41
Creatinine 0.7 mg/dL (0.7-1.3) 10/22/24 06:41
eGFR > 60.00 10/22/24 06:41
Glucose 93 mg/dl (70-99) 10/22/24 06:41
Calcium 9.3 mg/dl (8.4-10.2) 10/22/24 06:41
Albumin 3.7 g/dl (3.5-5.0) 10/18/24 06:15
Physical Exam
-
Vital Signs:
Vital Signs
Temp Pulse Resp BP Pulse Ox
98.1 F 78 18 133/80 98
10/22/24 11:01 10/22/24 11:01 10/22/24 11:01 10/22/24 11:01 10/22/24 11:41
Cardiovascular:: Regular rate and rhythm
Respiratory:: Bilateral: CTA
Lung Excursion:: Normal
Abdomen:: Nontender and Soft
Bowel Sounds:: Normal
Extremity Edema:: None: Bilateral:
--- NOTE | 2024-10-22 14:34 | CM ---
Addendum entered by Rossy Medina 10/22/24 15:52:
Met with patient's spouse at the bedside;
IMM benefit explained; form signed @ 1545
Ambulance scheduled for 5:30 PM; facility notified
Addendum entered by Rossy Medina 10/22/24 14:44:
[facility]
Report # [phone]

Original Note:
Per Attending, stable for discharge; facility notified and can accept anytime today
Plan: Return to [facility] today via ambulance
--- NOTE | 2024-10-22 14:38 | W.DS.TRANS ---
DC Summary - [employer]
-
Discharge Instructions:
Discharge Diagnosis/Procedures Impression:
Acute on chronic euvolemic hyponatremia
Altered mental status, encephalopathy likely
multifactorial
Status post fall with displaced posterior right
third and fourth rib fracture
Mechanical vertebral fracture, status post fall
Right pleural effusion by imaging/CT scan,
minimal
Other conditions:
Recent admission with seizure first episode with
unrevealing workup currently not on
antiepileptic medications.
Dementia/Alzheimer type.
Chronic anemia with iron deficiency
BPH
Diet Regular,Restrict fluids to 48 oz
Blood Work BMP in one week
Instructions:
Stand-Alone Forms:
Changes to Home Medications: Yes
Discharge Medications:
DC Medications w/original date entered in [employer]
memantine 28 mg capsule sprinkle,extended release 24hr 28 mg PO QPM Alzhemimer's dementia 06/25/23
rivastigmine tartrate 1.5 mg capsule 1.5 mg PO BID Alzhemimer's dementia 06/25/23
sertraline 100 mg tablet 100 mg PO QPM Alzhemimer's dementia 06/25/23
pantoprazole 40 mg tablet,delayed release (Protonix) 40 mg PO BID Gastrointestinal Issue 10/03/24
cholecalciferol (vitamin D3) 125 mcg (5,000 unit) tablet 125 mcg PO DAILY Supplement #30 tabs 10/12/24
acetaminophen 325 mg tablet (Tylenol) 650 mg PO Q4H PRN pain/ fever 10/17/24
bisacodyl 10 mg rectal suppository (Dulcolax (bisacodyl)) 10 mg MA DAILY PRN constipation 10/17/24
cyanocobalamin (vitamin B-12) 1,000 mcg tablet (Vitamin B-12) 1,000 mcg PO DAILY Supplement 10/17/24
magnesium hydroxide 400 mg/5 mL oral suspension (Milk of Magnesia) 30 ml PO DAILY PRN constipation 10/17/24
risperidone 0.5 mg tablet 0.5 mg PO HS Mental Health/Anxiety 10/17/24
sodium chloride 1,000 mg soluble tablet 500 mg PO BID Supplement 10/17/24
sodium phosphates 19 gram-7 gram/118 mL enema (Fleet Enema) 118 ml MA DAILYPRN PRN constipation 10/17/24
furosemide 20 mg tablet 20 mg PO DAILY #30 tabs 10/22/24
lorazepam 0.5 mg tablet 0.25 mg (1/2 x 0.5 mg) PO DAILY PRN agitation #4 tabs 10/22/24
Home Medication Changes
Lasix added
Pending Results: No
[2024-10-22 15:10] VITALS: BP 145/72
[2024-10-22] MEDS: ZOLOFT 100 MG PO (17:08)
== END 2024-10-22 17:53 | DRG 643 ==
LOC: 4 EAST ACU 14:08
PROVIDERS: Internal Medicine; Specialist; ADMITTING PHYSICIAN Hospitalist; ATTENDING PHYSICIAN Internal Medicine; CONSULT PHYSICIAN Specialist; EMERGENCY PHYSICIAN Emergency Medicine; FAMILY PHYSICIAN Family Medicine
DX: E22.2 Syndrome of inappropriate secretion of antidiuretic hormone (principal); G93.41 Metabolic encephalopathy; S22.41XA Multiple fractures of ribs, right side, initial encounter for closed fracture; F02.818 Dementia in other diseases classified elsewhere, unspecified severity, with other behavioral disturbance; J90 Pleural effusion, not elsewhere classified; G40.89 Other seizures; F02.84 Dementia in other diseases classified elsewhere, unspecified severity, with anxiety; K65.4 Sclerosing mesenteritis; R47.01 Aphasia; Z66 Do not resuscitate; G30.9 Alzheimer's disease, unspecified; D50.9 Iron deficiency anemia, unspecified; N40.0 Benign prostatic hyperplasia without lower urinary tract symptoms; W19.XXXA Unspecified fall, initial encounter; K21.9 Gastro-esophageal reflux disease without esophagitis; E55.9 Vitamin D deficiency, unspecified; E53.8 Deficiency of other specified B group vitamins; K57.90 Diverticulosis of intestine, part unspecified, without perforation or abscess without bleeding; K44.9 Diaphragmatic hernia without obstruction or gangrene; Z88.1 Allergy status to other antibiotic agents; I10 Essential (primary) hypertension; I25.10 Atherosclerotic heart disease of native coronary artery without angina pectoris; K80.20 Calculus of gallbladder without cholecystitis without obstruction; M47.819 Spondylosis without myelopathy or radiculopathy, site unspecified; M48.02 Spinal stenosis, cervical region; N52.9 Male erectile dysfunction, unspecified; Z79.899 Other long term (current) drug therapy; M46.1 Sacroiliitis, not elsewhere classified
CPT/HCPCS: 70450; 71045; 72125; 72170; 74176; 76604; 80048; 80053; 83935; 84300; 85025; 87070; 93005; 97162; 97166; 97530; 99285

== ENCOUNTER → 2024-10-26 10:15 | Outpatient (REF) | payer OTHER, MEDICARE, SELFPAY ==
[2024-10-26 11:12] LABS: % Basophils 1.2 % (0-2); % Eosinophils 3.1 % (0-6); % Immature Granulocytes 0.3 % (0-0.5); % Monocytes 13.5 % (1.7-9.3); % Neutrophils 48.9 % (42.2-75.2); Absolute Basophils 0.1 10^3/uL (0-0.2); Absolute Eosinophils 0.2 10^3/uL (0-0.7); Absolute Lymphocytes 1.9 10^3/uL (1.2-3.4); Absolute Monocytes 0.8 10^3/uL (0.1-0.6); Absolute Neutrophils 2.8 10^3/uL (1.4-6.5); Hematocrit 34.8 % (39.0-52.0); Hemoglobin 11.7 g/dL (13.0-18.0); Mean Corp Hgb Conc. 33.6 g/dL (33.0-37.0); Mean Corpuscular Hgb 27.1 pg (27.0-31.0); Mean Corpuscular Volume 80.6 fL (80.0-94.0); Mean Platelet Volume 9.5 fL (7.4-10.4); Nucleated Red Blood Cells % 0 % (-); Platelet Count 410 10^3/uL (130-400); Red Blood Cell Count 4.32 10^6/uL (4.70-6.10); Red Cell Dist. Width 14.3 % (11.5-14.5); White Blood Cell Count 5.8 10^3/uL (4.8-10.8)
[2024-10-26 11:35] LABS: Blood Urea Nitrogen 5 mg/dl (9-20); Calcium 9.1 mg/dl (8.4-10.2); Carbon Dioxide 23 mmol/L (22-30); Chloride 93 mmol/L (98-107); Glucose 92 mg/dl (70-99); Potassium 4.2 mmol/L (3.5-5.1); Sodium 127 mmol/L (135-145); eGFR > 60.00
== END ==
LOC: OLABP 10:15
PROVIDERS: ATTENDING PHYSICIAN Family Medicine
DX: G30.9 Alzheimer's disease, unspecified (principal); E87.1 Hypo-osmolality and hyponatremia; M54.9 Dorsalgia, unspecified; G81.91 Hemiplegia, unspecified affecting right dominant side
CPT/HCPCS: 36415; 80048; 85025

== ENCOUNTER → 2024-11-05 11:15 | Outpatient (REF) | payer MEDICARE, OTHER, SELFPAY ==
[2024-11-05 12:35] LABS: Blood Urea Nitrogen 4 mg/dl (9-20); Calcium 9.2 mg/dl (8.4-10.2); Carbon Dioxide 24 mmol/L (22-30); Chloride 100 mmol/L (98-107); Glucose 93 mg/dl (70-99); Potassium 3.9 mmol/L (3.5-5.1); Sodium 131 mmol/L (135-145); eGFR > 60.00
== END ==
LOC: OLABP 11:15
PROVIDERS: ATTENDING PHYSICIAN Family Medicine
DX: G30.9 Alzheimer's disease, unspecified (principal); E87.1 Hypo-osmolality and hyponatremia; M54.9 Dorsalgia, unspecified; G81.91 Hemiplegia, unspecified affecting right dominant side
CPT/HCPCS: 36415; 80048

== ENCOUNTER 2024-11-09 16:41 | Emergency (ER) | payer MEDICARE, OTHER, SELFPAY ==
[2024-11-09 16:42] VITALS: BP 157/84
[2024-11-09 17:45] LABS: % Basophils 0.7 % (0-2); % Eosinophils 0.1 % (0-6); % Immature Granulocytes 0.6 % (0-0.5); % Lymphocytes 25.4 % (20.5-51.1); % Monocytes 10.4 % (1.7-9.3); % Neutrophils 62.8 % (42.2-75.2); Absolute Basophils 0.1 10^3/uL (0-0.2); Absolute Lymphocytes 1.8 10^3/uL (1.2-3.4); Absolute Monocytes 0.8 10^3/uL (0.1-0.6); Absolute Neutrophils 4.5 10^3/uL (1.4-6.5); Hematocrit 37.7 % (39.0-52.0); Hemoglobin 12.8 g/dL (13.0-18.0); Mean Corpuscular Hgb 27.2 pg (27.0-31.0); Mean Corpuscular Volume 80.2 fL (80.0-94.0); Mean Platelet Volume 8.5 fL (7.4-10.4); Nucleated Red Blood Cells % 0 % (-); Platelet Count 401 10^3/uL (130-400); Red Cell Dist. Width 14.7 % (11.5-14.5); White Blood Cell Count 7.2 10^3/uL (4.8-10.8)
[2024-11-09 17:58] LABS: ALT (SGPT) 20 U/L (0-50); AST (SGOT) 33 U/L (17-59); Albumin 4.6 g/dl (3.5-5.0); Alkaline Phosphatase 141 U/L (38-126); Blood Urea Nitrogen 7 mg/dl (9-20); Calcium 9.8 mg/dl (8.4-10.2); Carbon Dioxide 24 mmol/L (22-30); Chloride 96 mmol/L (98-107); Glucose 101 mg/dl (70-99); Potassium 3.2 mmol/L (3.5-5.1); Sodium 132 mmol/L (135-145); Total Bilirubin 0.9 mg/dl (0.2-1.3); Total Protein 7.4 g/dl (6.3-8.2); eGFR > 60.00
--- NOTE | 2024-11-09 18:24 | ED.MUSCINJ ---
HPI-Injury
General
Chief Complaint: Musculo-Skeletal Complaint
Source: patient
Exam Limitations: none
Time Seen by Provider: 11/09/24 18:15
History of Present Illness-Injury
Initial Injury comments:
84-year-old male presents from home after [facility] his who states that the patient has been having increased lower back pain. They also noted new bruising to the left flank. Patient states his pain is
in his back and radiates down both legs. There is no bowel or bladder dysfunction. He has not noticed any hematuria. He was here several weeks ago and diagnosed with compression fracture then discharged to rehab from there. Before his fall
several weeks ago he was ambulatory and functional. His states that he was not ambulatory today at home and requires heavy assistance. He has been using Tylenol for pain. No abdominal pain or vomiting. No fever. No other complaints
Past History
Past History
ED Past Medical History: GERD, Seizures and Other (Dementia, erectile dysfunction, BPH, iron deficiency anemia, vitamin D deficiency, diverticulosis, colovesical fistula)
ED Past Surgical History: Other (Inguinal herniorrhaphy, left hydrocelectomy, sigmoidectomy 2023)
Social History
Tobacco: Non-smoker
Alcohol: Occasional
Drug: None
Personal:
Living: with family
Employment: Retired
Family History
Family History: Other (Reviewed and noncontributory)
Phy Exam
Physical Exam
Physical Exam:
General: Well appearing male, NAD
HEENT: NC/AT
Heart: RRR, no murmurs
Lungs; CTA bilaterally
Abd: Soft nontender nondistended there is left flank bruising.
Musculoskeletal exam: Patient is tender over the midline of the lumbar spine and tender over the left flank
Extremities: No cyanosis or edema
Skin: Warm, no rash
Injury Course
Orders/Labs/Results
Orders:
Orders
11/09/24 17:37
Complete Blood Count/With Diff Urgent
Comprehensive Metabolic Panel Urgent
11/09/24 18:23
CT Abd/pelvis W Iv Cont Urgent
Comment:
Reason For Exam: back pain and left flank bruising
Abnormal Lab Results
11/09/24
17:37
Hgb 12.8 L g/dL
(13.0-18.0)
Hct 37.7 L %
(39.0-52.0)
RDW 14.7 H %
(11.5-14.5)
Plt Count 401 H 10^3/uL
(130-400)
Absolute Monos (auto) 0.8 H 10^3/uL
(0.1-0.6)
Immature Gran % 0.6 H %
(0-0.5)
Monocytes % 10.4 H %
(1.7-9.3)
Sodium 132 L mmol/L
(135-145)
Potassium 3.2 L mmol/L
(3.5-5.1)
Chloride 96 L mmol/L
(98-107)
BUN 7 L mg/dl
(9-20)
Creatinine 0.5 L mg/dL
(0.7-1.3)
Glucose 101 H mg/dl
(70-99)
Alkaline Phosphatase 141 H U/L
(38-126)
11/09/24 17:37
11/09/24 17:37
MDM/Problems Addressed
Differential Diagnosis Includes:
Low back pain with left flank bruising. Contusion versus fracture versus intra-abdominal or retroperitoneal hemorrhage. No neurologic deficit or red flags to suggest cauda equina.
Labs reviewed hemoglobin 12.8. CT of abdomen pelvis with IV contrast pending
*Critical Care Note
Total Time (30-74mins, 75-104mins- exclusive of procedures): Not Applicable
Update Note
Update Note:
CT shows no acute intra-abdominal hemorrhage. There is known L5 compression fracture as well as healing rib fracture and sacral fractures. There is no new finding traumatically otherwise. Patient was given a walker here and he was ambulatory and
did very well. No indication for admission. comfortable with plan of discharge.
ED Attending Note
-
Portions of this chart may have been created with voice recognition software.� Occasional wrong word or��sound alike� substitutions may have occurred due to the inherent limitations of voice recognition software.
Discharge Plan
Departure
Patient Disposition: Home (Routine Discharge)
Date of Disposition: 11/09/24
Time of Disposition: 20:26
Patient with high blood pressure during this ER visit?: No
Discharge Problem:
Back pain
Instructions: Muscle and Bone Pain (DC)
Prescriptions:
No Action
rivastigmine tartrate 1.5 mg Capsule
1.5 mg PO BID
sertraline 100 mg Tablet
100 mg PO QPM
memantine 28 mg Capsule,Sprinkle,Er 24hr
28 mg PO QPM
pantoprazole [Protonix] 40 mg Tablet,Delayed Release (Dr/Ec)
40 mg PO BID
cholecalciferol (vitamin D3) 125 mcg (5,000 unit) Tablet
125 mcg PO DAILY Qty: 30 0RF
risperidone 0.5 mg tablet
0.5 mg PO HS
acetaminophen [Tylenol] 325 mg Tablet
650 mg PO Q4H PRN (Reason: pain/ fever)
cyanocobalamin (vitamin B-12) [Vitamin B-12] 1,000 mcg Tablet
1,000 mcg PO DAILY
magnesium hydroxide [Milk of Magnesia] 400 mg/5 mL Suspension
30 ml PO DAILY PRN (Reason: constipation)
Rx Instructions:
If no BM x3 days, on day 4 of no BM
bisacodyl [Dulcolax (bisacodyl)] 10 mg Suppository
10 mg UT DAILY PRN (Reason: constipation)
Rx Instructions:
If Milk of Magnesium is ineffective, on day-5 of no BM
Fleet Enema 19-7 gram/118 mL Enema
118 ml UT DAILYPRN PRN (Reason: constipation)
Rx Instructions:
If dulcolax suppository is not effective
sodium chloride 1,000 mg Tablet,Soluble
500 mg PO BID
furosemide 20 mg Tablet
20 mg PO DAILY Qty: 30 0RF
lorazepam 0.5 mg tablet
0.25 mg PO DAILY PRN (Reason: agitation) Qty: 4 0RF
Referrals:
Sachin Duncan DO [Family Provider] -
Activity Restrictions/Additional Instructions:
Continue with Tylenol or Advil for pain. You may use topical Lidoderm patches [id number] for additional pain relief. Use walker for support when ambulating. Return if worse otherwise follow-up with your doctor
Interventions
Interventions:
*Risk Screen - Suicide Last Done: 11/09/24 16:42
*General Assessment Last Done: 11/09/24 16:42
*Neglect/Abuse Screening Last Done: 11/09/24 16:42
ED-Musculoskeletal Assessment Last Done: 11/09/24 18:47
Discharge Date and Time
Print Language: THAI
[2024-11-09 18:38] VITALS: BMI 26.8
[2024-11-09 18:39] VITALS: BP 160/89
[2024-11-09 20:00] VITALS: BP 155/91
== END 2024-11-10 01:27 | disposition home or self-care (01) ==
LOC: EMR 16:41
PROVIDERS: Emergency Medicine; EMERGENCY PHYSICIAN Emergency Medicine; FAMILY PHYSICIAN Family Medicine
DX: M54.50 Low back pain, unspecified (principal); S30.1XXA Contusion of abdominal wall, initial encounter; X58.XXXA Exposure to other specified factors, initial encounter; M48.56XA Collapsed vertebra, not elsewhere classified, lumbar region, initial encounter for fracture; F03.90 Unspecified dementia, unspecified severity, without behavioral disturbance, psychotic disturbance, mood disturbance, and anxiety; Z90.49 Acquired absence of other specified parts of digestive tract; Z87.81 Personal history of (healed) traumatic fracture
CPT/HCPCS: 99284; 74177; 80053; 85025; Q9967

== ENCOUNTER 2024-11-25 16:06 | Inpatient (IN) | payer MEDICARE, OTHER, SELFPAY ==
[2024-11-25] VITALS (15 sets, daily range): BP systolic 132–198; BP diastolic 61–124; BMI 27.7
[2024-11-25 11:46] LABS: % Basophils 0.4 % (0-2); % Immature Granulocytes 0.5 % (0-0.5); % Lymphocytes 13.6 % (20.5-51.1); % Monocytes 7.2 % (1.7-9.3); % Neutrophils 78.3 % (42.2-75.2); Absolute Basophils 0.1 10^3/uL (0-0.2); Absolute Immature Granulocytes 0.1 10^3/uL (0-0.05); Absolute Lymphocytes 1.7 10^3/uL (1.2-3.4); Absolute Monocytes 0.9 10^3/uL (0.1-0.6); Absolute Neutrophils 9.8 10^3/uL (1.4-6.5); Hematocrit 31.9 % (39.0-52.0); Hemoglobin 11.4 g/dL (13.0-18.0); Mean Corp Hgb Conc. 35.7 g/dL (33.0-37.0); Mean Corpuscular Volume 75.4 fL (80.0-94.0); Mean Platelet Volume 8.7 fL (7.4-10.4); Nucleated Red Blood Cells % 0 % (-); Platelet Count 371 10^3/uL (130-400); Red Blood Cell Count 4.23 10^6/uL (4.70-6.10); Red Cell Dist. Width 14.4 % (11.5-14.5); White Blood Cell Count 12.5 10^3/uL (4.8-10.8)
[2024-11-25 11:52] LABS: INR 1.01; PT 13.9 Sec (11.4-14.6)
[2024-11-25 11:53] LABS: APTT 32.9 Sec (23.4-35.0)
[2024-11-25 12:04] LABS: ALT (SGPT) 21 U/L (0-50); AST (SGOT) 37 U/L (17-59); Albumin 3.8 g/dl (3.5-5.0); Alkaline Phosphatase 148 U/L (38-126); Blood Urea Nitrogen 10 mg/dl (9-20); Calcium 8.9 mg/dl (8.4-10.2); Carbon Dioxide 25 mmol/L (22-30); Chloride 83 mmol/L (98-107); Estimated Creatinine Clearance 89 ml/min; Glucose 118 mg/dl (70-99); Potassium 4.3 mmol/L (3.5-5.1); Sodium 116 mmol/L (135-145); Total Bilirubin 0.9 mg/dl (0.2-1.3); Total Protein 6.8 g/dl (6.3-8.2); eGFR > 60.00
[2024-11-25] MEDS: NSS 1000 IV (12:25)
[2024-11-25] MEDS: ZOFRAN 4 MG IV (12:26)
--- NOTE | 2024-11-25 13:33 | ED.GENMED ---
History of Present Illness
General
Chief Complaint: Rectal Bleeding
Time Seen by Provider: 11/25/24 11:37
History of Present Illness
History of Present Illness:
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 Patient arrives from [email or web address] with his partner who notes that he had a large episode of vomiting this morning, very dark in
color. Partner notes that patient was recently in a rehab facility after an L5 compression fracture. Has had chronic pain to the area. No report of any new falls or trauma. Patient is not on any blood thinners. No report of any blood in her
stool. Partner notes that patient was having increasing pain to his back today. Patient limited historian. No additional history obtained at this time
Past History
Past History
ED Past Medical History: GERD, Seizures and Other (Dementia, erectile dysfunction, BPH, iron deficiency anemia, vitamin D deficiency, diverticulosis, colovesical fistula)
ED Past Surgical History: Other (Inguinal herniorrhaphy, left hydrocelectomy, sigmoidectomy 2023)
Social History
Tobacco: Non-smoker
Alcohol: Occasional
Drug: None
Personal:
Living: with family
Employment: Retired
Family History
Family History: Other (Reviewed and noncontributory)
Phy Exam
Physical Exam
Physical Exam:
General: No acute distress, dry mucous membranes
HEENT: protecting airway
Neck: appears supple
CV: Normal heart rate, regular rhythm
Resp: No accessory muscle use, no increased work of breathing, lungs clear to auscultation bilaterally
Abd: Mild distention with generalized nonfocal tenderness
Extremities: No deformities, no swelling, no erythema. Generalized tenderness to the lower back, nonfocal tenderness, no step-offs, no erythema
Neuro: alert, no focal neurologic deficit
: Hemoccult negative stool
Rectal: deferred
Psych: Normal affect
Skin: Intact
Course
Orders/Labs/Results
Orders:
Orders
11/25/24 11:18
EKG [Electrocardiogram (*1)] Urgent
Reason for Study: Fatigue / Weakness
Cardiac Monitoring- Treatment ONCE
IV Insert/Care/Rem.- Treatment PRN
O2 Therapy [RESP] Urgent
Titrate/Wean O2 to maintain O2 sat greater than (%): 93
Special Instructions: MAINTAIN CONTINOUS O2 SATS > OR = 93%
Pulse Ox/spot Check [RESP] Urgent
Quantity: 1
Special Instructions: ON ROOM AIR
11/25/24 11:19
EKG- Treatment ONCE
11/25/24 11:30
Type+Screen Urgent
Complete Blood Count/With Diff Urgent
Comprehensive Metabolic Panel Urgent
PTT Urgent
Prothrombin Time Urgent
11/25/24 12:01
CT Abd/pelvis W Iv Cont Urgent
Comment:
Reason For Exam: coffee ground emesis, abdominal distension
0.9% Sodium Chloride 1000 ml [Nss] 1,000 ml IV BOLUS
Ondansetron Injectable [Zofran] 4 mg IV NOW STA
11/25/24 13:54
Lactic Acid Urgent
11/25/24 14:21
3% Sodium Chloride 250 ml [Sodium Chloride 3%] 250 ml IV ONCE
Abnormal Lab Results
11/25/24
11:30
WBC 12.5 H 10^3/uL
(4.8-10.8)
RBC 4.23 L 10^6/uL
(4.70-6.10)
Hgb 11.4 L g/dL
(13.0-18.0)
Hct 31.9 L %
(39.0-52.0)
MCV 75.4 L fL
(80.0-94.0)
Abs Immat Gran (auto) 0.1 H 10^3/uL
(0-0.05)
Absolute Neuts (auto) 9.8 H 10^3/uL
(1.4-6.5)
Absolute Monos (auto) 0.9 H 10^3/uL
(0.1-0.6)
Neutrophils % 78.3 H %
(42.2-75.2)
Lymphocytes % 13.6 L %
(20.5-51.1)
Sodium 116 L* mmol/L
(135-145)
Chloride 83 L mmol/L
(98-107)
Creatinine 0.4 L mg/dL
(0.7-1.3)
Glucose 118 H mg/dl
(70-99)
Alkaline Phosphatase 148 H U/L
(38-126)
11/25/24 11:30
11/25/24 11:30
Vital Signs
Initial and Last Documented VS:
Initial Vital Signs
Temp Pulse Resp BP Pulse Ox
98.5 F 73 16 198/86 96
11/25/24 11:20 11/25/24 11:20 11/25/24 11:20 11/25/24 11:20 11/25/24 11:20
Last Documented Vital Signs
Temp Pulse Resp BP Pulse Ox
98.5 F 65 16 157/66 98
11/25/24 11:20 11/25/24 14:15 11/25/24 14:15 11/25/24 14:00 11/25/24 14:15
MDM/Problems Addressed
MDM/Problems Addressed:
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 Vital signs on arrival significant for high blood pressure.
On exam, patient is in no acute distress, however does appear slightly dehydrated, dry mucous membranes. No active emesis, however did arrive after a large episode of emesis, dark in color. Hemoccult negative without concern for lower GI bleed.
Upper GI bleed is consideration. Partner denies any history of alcohol abuse. Does note that he has been taking meloxicam for his back pain, possibly related to NSAID usage. No report of any roz bright red blood upon vomiting. Lower suspicion
for any esophageal varices. Bowel obstruction is also consideration given emesis and some distention to the abdomen. Will plan for CT abdominal imaging. Will also obtain laboratory analysis. Partner notes history of low sodium, from drinking too
much water. Notes that he has tried to cut back on his water intake. Zofran administered.
14:00 - Hemoglobin is stable. However sodium is markedly low at 116. In discussion with nephrology, recommending hypertonic saline
14:10 -CT without findings of acute intra-abdominal process, however there is mention of new L2 compression fracture, likely source of increasing back pain. Plan for admission given hyponatremia and lethargy. On reassessment, patient does have
some redness and swelling to the left elbow, suspected olecranon bursitis. Without present concern as source of patient's presenting symptoms
*Critical Care Note
Total Time (30-74mins, 75-104mins- exclusive of procedures): 40
comment:
The high probability of a clinically significant, sudden or life threatening deterioration of the hemodynamic/metabolic imbalance system(s) required my full and direct attention, intervention and personal management. The aggregate critical care time
was 40 minutes. This time is in addition to time spent performing reported procedures but includes the following:
[x] Data Review and interpretation
[x] Patient assessment and monitoring of vital signs
[x] Documentation
[x] Medication orders and management
ED Attending Note
-
Portions of this chart may have been created with voice recognition software.� Occasional wrong word or��sound alike� substitutions may have occurred due to the inherent limitations of voice recognition software.
Discharge Plan
Departure
Patient Disposition: Admit
Date of Disposition: 11/25/24
Time of Disposition: 14:17
Presentation/result/management discussed w/ accepting MD/DO: Hospitalist
Patient with high blood pressure during this ER visit?: Yes
Condition: Fair
Discharge Problem:
Acute hyponatremia, Vomiting
Prescriptions:
No Action
rivastigmine tartrate 1.5 mg Capsule
1.5 mg PO BID
sertraline 100 mg Tablet
100 mg PO QPM
memantine 28 mg Capsule,Sprinkle,Er 24hr
28 mg PO QPM
pantoprazole [Protonix] 40 mg Tablet,Delayed Release (Dr/Ec)
40 mg PO BID
cholecalciferol (vitamin D3) 125 mcg (5,000 unit) Tablet
125 mcg PO DAILY Qty: 30 0RF
risperidone 0.5 mg tablet
0.5 mg PO HS
cyanocobalamin (vitamin B-12) [Vitamin B-12] 1,000 mcg Tablet
1,000 mcg PO DAILY
sodium chloride 1,000 mg Tablet,Soluble
500 mg PO BID
tramadol 50 mg tablet
50 mg PO BIDPRN PRN (Reason: breakthrough severe pain)
meloxicam 7.5 mg tablet
7.5 mg PO DAILY
gabapentin 100 mg capsule
100 mg PO BID
Referrals:
Coty Rosas DO [Family Provider] -
Interventions
Interventions:
*Risk Screen - Suicide Last Done: 11/25/24 11:20
*General Assessment Last Done: 11/25/24 11:20
*Neglect/Abuse Screening Last Done: 11/25/24 11:20
AA-Xudaps-Fymumkvhdq Assessment Last Done: 11/25/24 11:20
ED- Cardiac Assessment Last Done: 11/25/24 11:20
ED- Pulmonary Assessment Last Done: 11/25/24 11:20
Discharge Date and Time
Print Language: HUNGARIAN
--- NOTE | 2024-11-25 14:16 | W.CON.NEPH ---
Consultation
-
Date/Time Consultation Requested: 11/25/24 2:00 PM
Date/Time Consultation Performed: 11/25/2024 2:00 PM
Requesting Provider: Nicol Gross
Performing Provider: Dr. Horner
Reason for Consultation: Hyponatremia
Medical History
-
Chief Complaint: Hyponatremia
History of Present Illness:
This is an 84-year-old gentleman who has baseline dementia on memantine therapy as well as chronic hyponatremia on sodium chloride tablets twice daily. He presented to the hospital following an episode of dark emesis. The patient had had vomiting
earlier this morning very dark in color. The patient does have a history of significant increasing lower back pain due to L5 compression fracture and is maintained on meloxicam and gabapentin. I note he is also maintained on sertraline in the
setting of his dementia. On presentation to the hospital his serum sodium was 116 and we were consulted emergently. The patient was hypertensive on admission with blood pressure of 198/86. The patient's partner states that he had been increasing
his fluid intake over the past couple weeks and had also recently been placed on meloxicam for his lower back pain.
Past Medical History
Alzheimer's dementia, GERD, hiatal hernia, hyponatremia, seizure disorder, diverticulitis, anemia, BPH
Social History
Tobacco: Non-Smoker
Alcohol: None
Family History
Family History: Not Pertinent
Allergies / Home Medications
Allergy/AdvReac Type Severity Reaction Status Date / Time
tetracycline Allergy Rash Verified 11/25/24 11:29
�Medication �Instructions �Recorded �Confirmed �Type
memantine 28 mg capsule 28 mg PO QPM Alzhemimer's dementia 06/25/23 11/25/24 History
sprinkle,extended release 24hr
rivastigmine tartrate 1.5 mg 1.5 mg PO BID Alzhemimer's dementia 06/25/23 11/25/24 History
capsule
sertraline 100 mg tablet 100 mg PO QPM Alzhemimer's dementia 06/25/23 11/25/24 History
pantoprazole 40 mg tablet,delayed 40 mg PO BID Gastrointestinal Issue 10/03/24 11/25/24 History
release (Protonix)
cholecalciferol (vitamin D3) 125 125 mcg PO DAILY Supplement #30 10/12/24 11/25/24 Rx
mcg (5,000 unit) tablet tabs
cyanocobalamin (vitamin B-12) 1,000 mcg PO DAILY Supplement 10/17/24 11/25/24 History
1,000 mcg tablet (Vitamin B-12)
risperidone 0.5 mg tablet 0.5 mg PO HS Mental Health/Anxiety 10/17/24 11/25/24 History
sodium chloride 1,000 mg soluble 500 mg PO BID Supplement 10/17/24 11/25/24 History
tablet
gabapentin 100 mg capsule 100 mg PO BID 11/25/24 11/25/24 History
meloxicam 7.5 mg tablet 7.5 mg PO DAILY 11/25/24 11/25/24 History
tramadol 50 mg tablet 50 mg PO BIDPRN PRN breakthrough 11/25/24 11/25/24 History
severe pain
Review of Systems
-
Unable to obtain full review of systems at this time due to: Dementia, Acuity and Other (Patient very lethargic following analgesic administration)
History Source: Patient
All other systems: Negative unless noted
Abdomen/GI: Other (Vomiting with coffee-ground emesis)
Musculoskeletal: Other (Lower back pain/chronic ambulatory dysfunction)
Neurological: Other (Dementia predominantly with short-term memory loss)
Physical Exam
Vital Signs
Vital Signs
Temp Pulse Resp BP Pulse Ox
98.5 F 63 16 157/66 98
11/25/24 11:20 11/25/24 14:00 11/25/24 14:00 11/25/24 14:00 11/25/24 14:00
Lab Results
11/25/24 11:30
11/25/24 11:30
WBC 12.5 10^3/uL (4.8-10.8) H 11/25/24 11:30
RBC 4.23 10^6/uL (4.70-6.10) L 11/25/24 11:30
Hgb 11.4 g/dL (13.0-18.0) L 11/25/24 11:30
Hct 31.9 % (39.0-52.0) L 11/25/24 11:30
Plt Count 371 10^3/uL (130-400) 11/25/24 11:30
Sodium 116 mmol/L (135-145) L* 11/25/24 11:30
Potassium 4.3 mmol/L (3.5-5.1) 11/25/24 11:30
Chloride 83 mmol/L (98-107) L 11/25/24 11:30
Carbon Dioxide 25 mmol/L (22-30) 11/25/24 11:30
BUN 10 mg/dl (9-20) 11/25/24 11:30
Creatinine 0.4 mg/dL (0.7-1.3) L 11/25/24 11:30
eGFR > 60.00 11/25/24 11:30
Glucose 118 mg/dl (70-99) H 11/25/24 11:30
Calcium 8.9 mg/dl (8.4-10.2) 11/25/24 11:30
Albumin 3.8 g/dl (3.5-5.0) 11/25/24 11:30
Physical Exam
General: Lethargic and sleeping weakly arousable nontoxic in appearance
HEENT: PERRL, EOMI, Anicteric, Conjunctivae Clear, Ear/Nose Intact, Hearing Normal, Oropharynx Clear/dry, Dentition Intact, Facial Symmetry, Neck Supple, Neck: Trachea Midline, No JVD and No Thyromegaly, no Bruits
Respiratory: Clear to auscultation bilaterally with normal lung excursion
Cardiac: S1/S2 and Regular Rate/Rhythm
Breast: Deferred by me
Abdomen: Soft, Nontender, Nondistended, Normal Bowel Sounds and No Hepatosplenomegaly
Rectal: Deferred by Provider
Extremities: No Clubbing, No Cyanosis and No Edema
Skin: No Rash or open lesions
Neuro: Difficult to ascertain as patient was sedated and uncooperative with exam, he does move all 4 limbs independently
Hematologic/Lymphatic: No Cervical Lymphadenopathy, No Submandibular Lymphadenopathy and No Supraclavicular Lymphadenopathy
Psych: Sedated
Vascular: plus 2 pedal and radial pulses
Data Reviewed
-
CT Scan: Report Reviewed by me (CT scan reviewed: No acute inflammatory process within the abdomen or pelvis moderate compression fracture of L5)
Medical Tests (Nuc Med, Echo etc): Other (EKG report reviewed sinus rhythm with PACs 68 beats per minutes)
Labs: Labs Reviewed by me (BMP CBC)
Old Records: Reviewed (Reviewed previous serum sodium level of 132 on 11/09/2024, reviewed previous history of nephrology consult from 10/18/2024 with SIADH with hyponatremia admission)
Assessment/Plan
-
Assessment
Coffee ground emesis
Severe lower back pain with known history of L5 fracture
Acute on chronic hyponatremia (116)/known history of SIADH
Hypertension
Dementia
Right rib fractures 367
S4 vertebral fracture
Plan
Hyponatremia:
Hypertonic saline provided at 20cc/hr for total of 250cc
Can continue sodium chloride tabs
Fluid restriction to 1200 cc daily
Follow-up electrolytes every 6 hours
Sertraline and meloxicam likely exacerbating hyponatremia
HTN:
-likely exacerbated by pain
-Can provide as needed hydralazine 10 mg IV every 6 hours for SBP greater than 170
[2024-11-25] MEDS: SODIUM CHLORIDE 3% 250 IV (14:33)
[2024-11-25 14:52] LABS: Lactic Acid 0.9 mmol/L (0.7-2.0)
--- NOTE | 2024-11-25 15:06 | HPS.HSE ---
Family Physician
-
Family Physician: Crow Rosas DO
Chief Complaint
-
dark emesis
History of Present Illness
Patient is a 84-year-old male with past medical history significant for seizures, Alzheimer's dementia, GERD/hiatal hernia, BPH, iron deficiency anemia, diverticulitis and Hx hyponatremia who presented to [facility] ED for evaluation of large episode of
dark emesis. Patient poor historian. Partner reported that patient had large episode of dark emesis. Patient with recent rehab stay for L5 compression fracture with chronic pain to the area. Partner denies any recent falls or trauma. Hemoccult
negative for blood. Patient has increased back pain today.
Medical History
Past Medical History
Past Medical History: Reports Other
Additional Past Medical History:
seizures
Alzheimer's dementia
GERD/hiatal hernia
vitamin D deficiency
vitamin B12 deficiency
BPH
iron deficiency anemia
diverticulitis
Hx hyponatremia
Past Surgical History: Reports Other
Additional Past Surgical History:
inguinal hernia repair
left hydrocelectomy
sigmoidectomy, takedown colovesical fistula, ventral/umbilical hernia repair ([facility]) 09/13/2023
Social History
Unable to obtain full social history at this time due to: Dementia
Family History
Family History: Unable to Obtain
Allergies / Home Medications
Allergies reflects when Allergies were last updated in [employer].
Home Medications with original date entered in [employer]
Allergy/Medication List:
Allergies
Allergy/AdvReac Type Severity Reaction Status Date / Time
tetracycline Allergy Rash Verified 11/25/24 11:29
Home Medications
memantine 28 mg capsule sprinkle,extended release 24hr 28 mg PO QPM Alzhemimer's dementia 06/25/23
rivastigmine tartrate 1.5 mg capsule 1.5 mg PO BID Alzhemimer's dementia 06/25/23
sertraline 100 mg tablet 100 mg PO QPM Alzhemimer's dementia 06/25/23
pantoprazole 40 mg tablet,delayed release (Protonix) 40 mg PO BID Gastrointestinal Issue 10/03/24
cholecalciferol (vitamin D3) 125 mcg (5,000 unit) tablet 125 mcg PO DAILY Supplement #30 tabs 10/12/24
cyanocobalamin (vitamin B-12) 1,000 mcg tablet (Vitamin B-12) 1,000 mcg PO DAILY Supplement 10/17/24
risperidone 0.5 mg tablet 0.5 mg PO HS Mental Health/Anxiety 10/17/24
sodium chloride 1,000 mg soluble tablet 500 mg PO BID Supplement 10/17/24
gabapentin 100 mg capsule 100 mg PO BID 11/25/24
meloxicam 7.5 mg tablet 7.5 mg PO DAILY 11/25/24
tramadol 50 mg tablet 50 mg PO BIDPRN PRN breakthrough severe pain 11/25/24
Review of Systems
-
Unable to obtain full review of systems at this time due to: Dementia
Physical Exam
Vital Signs
Vital Signs
Temp Pulse Resp BP Pulse Ox
98.5 F 70 18 154/61 98
11/25/24 11:20 11/25/24 15:00 11/25/24 15:00 11/25/24 15:00 11/25/24 14:15
Physical Exam
General: Well Developed, Well Nourished, No Apparent Distress, Comfortable and Conversant
HEENT: NormoCephalic, Moist mucous membranes, Atraumatic, Nose Appears Normal and Ears Appear Normal
Respiratory: Clear
Cardiac: S1/S2 and Regular Rhythm
Breast: Deferred by me
GI: Soft, Non Tender, Non Distended and Normal Bowel Sounds; No Organomegaly
Rectal: Deferred by Provider
Genito-urinary: Deferred by me
Musculoskeletal: No Clubbing, No Cyanosis and No Edema
Skin: IV/Catheter Site
Neuro: Awake and Nonfocal/grossly intact
Psych: Apparent Dementia
Laboratory Results
-
11/25/24 11:30
11/25/24 11:30
Laboratory Results
PT 13.9 Sec (11.4-14.6) 11/25/24 11:30
INR 1.01 11/25/24 11:30
APTT 32.9 Sec (23.4-35.0) 11/25/24 11:30
Lactic Acid 0.9 mmol/L (0.7-2.0) 11/25/24 14:17
Total Bilirubin 0.9 mg/dl (0.2-1.3) 11/25/24 11:30
AST 37 U/L (17-59) 11/25/24 11:30
ALT 21 U/L (0-50) 11/25/24 11:30
Alkaline Phosphatase 148 U/L (38-126) H 11/25/24 11:30
Data Reviewed
-
CT Scan: Report Reviewed by me (Abd/Pel: No CT evidence for a new acute inflammatory process in the abdomen or pelvis within the limitations of motion artifact and the patient's arms down position. New acute or subacute mild compression fracture of
the L2 superior endplate. Stable subacute moderate compression fracture of the L5 )
Medical Tests (Nuc Med, Echo, EKG etc): Report Reviewed by me (EKG: SINUS RHYTHM WITH PREMATURE ATRIAL COMPLEXES SEPTAL INFARCT (CITED ON OR BEFORE 24-SEP-1996))
Lab Data: Labs Reviewed by me (WBC 12.5, hgb 11.4, hct 31.9, Neut 78.3, Na 116)
Impression/Plan
-
IMPRESSION/PLAN:
#hyponatremia
hx hyponatremia, SIADH
Na+ 116
- Admit to telemetry
- consult Nephrology
- 3% saline
- serial electrolytes q6
#chronic back pain
abd/pel CT: No CT evidence for a new acute inflammatory process in the abdomen or pelvis within the limitations of motion artifact and the patient's arms down position.
New acute or subacute mild compression fracture of the L2 superior endplate. Stable subacute moderate compression fracture of the L5 inferior endplate. Stable healing fractures of the right
lateral seventh rib and the inferior sacrum.
Other chronic findings, as detailed above.
- continue gabapentin, meloxicam and tramadol
#Alzheimer's dementia
- continue memantine, risperidone, rivastigmine and sertraline
#GERD/hiatal hernia
dark episode of emesis
- change pantoprazole to IV for now
- monitor for further emesis
#iron deficiency anemia
hgb 11.4, hct 31.9
- monitor CBC
#seizures
#BPH
#diverticulitis
Code status: DNR
DVT prophylaxis: SCDs
--- NOTE | 2024-11-25 15:54 | W.PN.UPDATE ---
Update Note
Progress Note Update
I saw and examined the patient.
The SECURITY SYSTEM ENGINEER or PA's note was reviewed and I agree with the note.
Comment:
Patient is 84 years old with history of SIADH, seizure, Kathie dementia, anemia, hyponatremia who came to the ER for large episode of dark emesis.
Patient is poor historian and partner is not available at bedside.
Patient denies chest pain or shortness of breath.
Noted to have sodium level of 116.
Will be admitted under hospitalist service.
Physical exam:
GENERAL : Patient is awake but not fully oriented.
HEENT: Nonicteric sclerae, PERRLA, EOMI. Oropharynx clear. Moist mucous membranes. Conjunctivae appear well perfused.
CHEST: Chest wall is nontender.
HEART: Regular rate and rhythm without murmurs.
LUNGS: Bilateral basal rales..
ABDOMEN: Soft, positive bowel sounds, nontender, no organomegaly.
RECTAL: Deferred.
SKIN: No rash, no excessive bruising, petechiae, or purpura.
NEUROLOGIC: Not fully oriented.
Assessment/plan
Hyponatremia.
Sodium level 116.
Admit to telemetry.
Nephrology consult.
BMP every 6 hours.
Start normal saline 3%.
Alignment dementia.
Continue home med
History of seizures/BPH/GERD/chronic back pain
Continue current meds.
Hold meloxicam (NSAID)
CODE STATUS: DNR
DVT prophylaxis: SCD
Total time spent on today's encounter was 75 minutes which included time spent in counseling the patient/family regarding diagnosis and treatment plan as listed above, goals of care, and symptom management. Case was discussed with nursing staff,
specialists, and care coordinators/case management. All labs and imaging personally reviewed by me. Remainder the time spent in detailed review of previous records, lab data, imaging, and other medical provider documentation.
--- NOTE | 2024-11-25 17:55 | PTCARENOTE ---
Pt recvd to the floor by RN. Pt is alert and oriented to self and place. He is unable to answer admission questions. He said his partner Owen will be in and can help with the admission. vitals stable and the pt has patent IV with sodium chloride
running at 20ml/hr.
[2024-11-25] MEDS: ZOLOFT 100 MG PO (18:13)
[2024-11-25] MEDS: NSS (PRESERVATIVE FREE) 10 ML IV (19:47)
[2024-11-25] MEDS: PROTONIX IV 40 MG IV (19:48)
[2024-11-25] MEDS: EXELON 1.5 MG PO (19:49)
[2024-11-25] MEDS: NEURONTIN 100 MG PO (19:49)
[2024-11-25] MEDS: NAMENDA 10 MG PO (19:49)
[2024-11-25] MEDS: SODIUM CHLORIDE 0.5 GRAM PO (19:49)
[2024-11-25 20:33] LABS: Carbon Dioxide 24 mmol/L (22-30); Chloride 88 mmol/L (98-107); Potassium 4.6 mmol/L (3.5-5.1); Sodium 121 mmol/L (135-145)
[2024-11-25] MEDS: RISPERDAL 0.5 MG PO (21:08)
[2024-11-26] VITALS (7 sets, daily range): BP systolic 131–163; BP diastolic 61–96; PULSE 71; O2SAT 95; BMI 26.1
[2024-11-26 00:38] LABS: Carbon Dioxide 23 mmol/L (22-30); Chloride 92 mmol/L (98-107); Potassium 4.3 mmol/L (3.5-5.1); Sodium 122 mmol/L (135-145)
[2024-11-26 06:48] LABS: Hematocrit 31.7 % (39.0-52.0); Mean Corp Hgb Conc. 34.7 g/dL (33.0-37.0); Mean Corpuscular Hgb 26.8 pg (27.0-31.0); Mean Corpuscular Volume 77.3 fL (80.0-94.0); Mean Platelet Volume 8.6 fL (7.4-10.4); Platelet Count 363 10^3/uL (130-400); Red Cell Dist. Width 15.1 % (11.5-14.5); White Blood Cell Count 7.1 10^3/uL (4.8-10.8)
[2024-11-26 07:08] LABS: Blood Urea Nitrogen 9 mg/dl (9-20); Calcium 9.2 mg/dl (8.4-10.2); Carbon Dioxide 22 mmol/L (22-30); Chloride 94 mmol/L (98-107); Estimated Creatinine Clearance 89 ml/min; Glucose 101 mg/dl (70-99); Potassium 4.2 mmol/L (3.5-5.1); Sodium 125 mmol/L (135-145); eGFR > 60.00
[2024-11-26] MEDS: NSS (PRESERVATIVE FREE) 10 ML IV ×2 (10:04→20:28)
[2024-11-26] MEDS: PROTONIX IV 40 MG IV ×2 (10:04→20:28)
[2024-11-26] MEDS: EXELON 1.5 MG PO ×2 (10:05→20:27)
[2024-11-26] MEDS: FLUSH (NSS) 2 FLUSH IV ×2 (10:05→16:14)
[2024-11-26] MEDS: SODIUM CHLORIDE 0.5 GRAM PO ×2 (10:05→20:28)
[2024-11-26] MEDS: MOBIC 7.5 MG PO (10:06)
[2024-11-26] MEDS: VITAMIN D3 (cholecalciferol) 125 MCG PO (10:07)
[2024-11-26] MEDS: NAMENDA 10 MG PO ×2 (10:07→20:28)
[2024-11-26] MEDS: VITAMIN B-12 1000 MCG PO (10:07)
[2024-11-26] MEDS: NEURONTIN 100 MG PO ×2 (10:07→20:28)
[2024-11-26] MEDS: ULTRAM 50 MG PO ×2 (10:09→21:34)
--- NOTE | 2024-11-26 10:26 | CM ---
Patient seen bedside, initial assessment completed. Patient is a 84-year-old male with past medical history significant for seizures, Alzheimer's dementia, GERD/hiatal hernia, BPH, iron deficiency anemia, diverticulitis and Hx hyponatremia who
presented to [facility] ED for evaluation of large episode of dark emesis. Patient poor historian.
Patient resides w/ spouse at [facility]. First floor apartment, no steps. Patient uses RW and cane for ambulation, has grab bars and shower chair. Patient is independent w/ ADLs. Patient received skilled rehab at [facility]
in the past.
Address, point of contact and insurance verified
PCP: Coty Rosas
Pharmacy: [facility]
Therapy assessed patient and is currently recommending skilled rehab at d/c. Referral sent to [facility] in [facility] for review. Patient will need 3 night stay
Plan: [facility] SNF when stable
--- NOTE | 2024-11-26 10:29 | W.PN.HOSP.TC ---
Today's Communication/Plan
-
Continue to monitor NA
Assessment / Plan
Assessment / Plan
IMPRESSION:
Patient is 84 years old with history of SIADH, seizure, Kathie dementia, anemia, hyponatremia who came to the ER for large episode of dark emesis.
Patient is poor historian and partner is not available at bedside today's admission, but the patient denies chest pain or shortness of breath.
Noted to have sodium level of 116.
Started on hypertonic saline, next day sodium level 125 and hypertonic saline discontinued, seen by nephrology
Assessment / plan:
Hyponatremia
hx hyponatremia, SIADH
Sodium 116 on presentation, started on hypertonic saline
Improved to 125, hypertonic saline
Continue serial BMP q6
Chronic back pain
abd/pel CT: No CT evidence for a new acute inflammatory process in the abdomen or pelvis within the limitations of motion artifact and the patient's arms down position.
New acute or subacute mild compression fracture of the L2 superior endplate. Stable subacute moderate compression fracture of the L5 inferior endplate. Stable healing fractures of the right
lateral seventh rib and the inferior sacrum.
Other chronic findings, as detailed above.
- continue gabapentin, meloxicam and tramadol
Alzheimer's dementia
- continue memantine, risperidone, rivastigmine and sertraline
GERD/hiatal hernia
dark episode of emesis
- change pantoprazole to IV for now
- monitor for further emesis
Iron deficiency anemia
hgb 11.4, hct 31.9
- monitor CBC
CODE STATUS: DNR
DVT prophylaxis: SCD
Diet: Regular diet
Total time spent on today's encounter was 65 minutes which included time spent in counseling the patient/family regarding diagnosis and treatment plan as listed above, goals of care, and symptom management. Case was discussed with nursing staff,
specialists, and care coordinators/case management. All labs and imaging personally reviewed by me. Remainder the time spent in detailed review of previous records, lab data, imaging, and other medical provider documentation.
Anticipated Discharge: 24 - 48 hours
Subjective/Interval History
-
Date of Service: November 26, 2024
Patient seen and examined at bedside, denies any chest pain or shortness of breath, no abdominal pain, no nausea, no vomiting, no diarrhea or constipation.
Sodium level improved to 125
Objective Data
-
Labs:
Laboratory Results
11/26/24 11/26/24 11/26/24
00:13 06:24 12:00
WBC 7.1
Hgb 11.0 L
Hct 31.7 L
Plt Count 363
Sodium 122 L 125 L Pending
Potassium 4.3 4.2 Pending
Chloride 92 L 94 L Pending
Carbon Dioxide 23 22 Pending
BUN 9
Creatinine 0.5 L
Glucose 101 H
Calcium 9.2
11/26/24
18:00
WBC
Hgb
Hct
Plt Count
Sodium Pending
Potassium Pending
Chloride Pending
Carbon Dioxide Pending
BUN
Creatinine
Glucose
Calcium
Vital Signs:
Vital Signs
Temp Pulse Resp BP Pulse Ox
98.7 F 74 20 157/74 95
11/26/24 07:14 11/26/24 07:14 11/26/24 07:14 11/26/24 07:14 11/26/24 07:14
I&O
11/25/24 11/26/24 11/27/24
06:59 06:59 06:59
Intake Total 120 / 120
Output Total 400 / 400
Balance -280 / -280
Physical Exam
-
General: Well Developed, Well Nourished, No Apparent Distress and Comfortable
HEENT: Normocephalic, Atraumatic, Moist Mucous Membranes, No Ptosis, PERRLA and Nose Appears Normal
Respiratory: Clear to Auscultation and Non Labored Respirations
Cardiac: Regular Rhythm and S1/S2
Breast: Deferred by me
GI: Soft, Nontender, Nondistended and Normal Bowel Sounds
Genito-urinary: No Costovertebral Tender
Musculoskeletal: No Clubbing, No Cyanosis and No Edema
Skin: Warm
Neuro: Awake, Alert and Oriented (Not fully oriented)
Psych: Calm
Data Reviewed
-
Diagnostic Radiology: Image personally visualized and interpreted and Report Reviewed by me
CT Scan: Image personally visualized and interpreted and Report Reviewed by me
Ultrasound: Image personally visualized and interpreted and Report Reviewed by me
MRI: Image personally visualized and interpreted and Report Reviewed by me
Medical Tests (Nuc Med, Echo etc): Image personally visualized and interpreted and Report Reviewed by me
Labs: Labs Reviewed by me
Old Records: Reviewed
[2024-11-26 13:12] LABS: Carbon Dioxide 22 mmol/L (22-30); Chloride 92 mmol/L (98-107); Potassium 4.4 mmol/L (3.5-5.1); Sodium 123 mmol/L (135-145)
--- NOTE | 2024-11-26 15:44 | W.PN.NEPH.PH ---
Today's Communication / Plan
-
Maintain fluid restriction and salt tablet
Continue to follow electrolyte
Sodium up 7 points over past 24-hours
Assessment/Plan
-
Assessment
Hyponatremia (acute on chronic 116)
Coffee ground emesis
Severe lower back pain with known history of L5 fracture
Acute on chronic hyponatremia (116)/known history of SIADH
Hypertension
Dementia
Right rib fractures 367
S4 vertebral fracture
Plan
Hyponatremia:
Hypertonic saline provided at 20cc/hr for total of 250cc
Sodium went up to 125 and now down to 123
Can continue sodium chloride tabs
Urine osm 468 consistent with SIADH
Fluid restriction to 1200 cc daily
Sertraline and meloxicam likely exacerbating hyponatremia
HTN:
-likely exacerbated by pain
- provide as needed hydralazine 10 mg IV every 6 hours for SBP greater than 170
-
-
Date of Service: November 26, 2024
CC / HPI / ROS
-
Chief Complaint:
Hyponatremia
History of Present Illness:
Hemodynamically stable, blood pressure high side
Serum sodium up from 116-125-123 over past 24 hrs
Review of Systems:
nonOliguric 400 cc +2 times incontinent
No fevers
Demented
Labs
-
Labs:
WBC 7.1 10^3/uL (4.8-10.8) 11/26/24 06:24
RBC 4.10 10^6/uL (4.70-6.10) L 11/26/24 06:24
Hgb 11.0 g/dL (13.0-18.0) L 11/26/24 06:24
Hct 31.7 % (39.0-52.0) L 11/26/24 06:24
Plt Count 363 10^3/uL (130-400) 11/26/24 06:24
BUN 9 mg/dl (9-20) 11/26/24 06:24
Creatinine 0.5 mg/dL (0.7-1.3) L 11/26/24 06:24
eGFR > 60.00 11/26/24 06:24
Glucose 101 mg/dl (70-99) H 11/26/24 06:24
Calcium 9.2 mg/dl (8.4-10.2) 11/26/24 06:24
Albumin 3.8 g/dl (3.5-5.0) 11/25/24 11:30
Physical Exam
-
Vital Signs:
Vital Signs
Temp Pulse Resp BP Pulse Ox
98.1 F 72 20 163/79 96
11/26/24 11:34 11/26/24 11:34 11/26/24 11:34 11/26/24 11:34 11/26/24 11:34
Cardiovascular:: Regular rate and rhythm
Respiratory:: Bilateral: Coarse
Lung Excursion:: Normal
Abdomen:: Nontender and Soft
Bowel Sounds:: Normal
Extremity Edema:: +1: Bilateral:
Nolasco Catheter: No
[2024-11-26] MEDS: DULCOLAX 10 MG RECTAL (15:56)
[2024-11-26] MEDS: ZOFRAN 4 MG IV (16:13)
[2024-11-26] MEDS: ZOLOFT 100 MG PO (17:25)
[2024-11-26] MEDS: FLEET PHOSPHATE ENEMA-ADULT 135 ML RECTAL (18:16)
[2024-11-26 19:14] LABS: Carbon Dioxide 20 mmol/L (22-30); Chloride 90 mmol/L (98-107); Potassium 4.7 mmol/L (3.5-5.1); Sodium 121 mmol/L (135-145)
[2024-11-26] MEDS: RISPERDAL 0.5 MG PO (21:33)
[2024-11-27 03:38] VITALS: BP 108/66
[2024-11-27 06:05] VITALS: BMI 26.8
[2024-11-27 07:17] LABS: Hemoglobin 10.3 g/dL (13.0-18.0); Mean Corp Hgb Conc. 35.5 g/dL (33.0-37.0); Mean Corpuscular Hgb 27.3 pg (27.0-31.0); Mean Corpuscular Volume 76.9 fL (80.0-94.0); Mean Platelet Volume 9.4 fL (7.4-10.4); Platelet Count 423 10^3/uL (130-400); Red Blood Cell Count 3.77 10^6/uL (4.70-6.10); Red Cell Dist. Width 15.1 % (11.5-14.5); White Blood Cell Count 10.7 10^3/uL (4.8-10.8)
[2024-11-27 07:21] LABS: Blood Urea Nitrogen 14 mg/dl (9-20); Calcium 9.2 mg/dl (8.4-10.2); Carbon Dioxide 24 mmol/L (22-30); Chloride 92 mmol/L (98-107); Estimated Creatinine Clearance 89 ml/min; Glucose 100 mg/dl (70-99); Sodium 124 mmol/L (135-145); eGFR > 60.00
[2024-11-27 07:58] VITALS: BP 126/63
[2024-11-27] MEDS: SODIUM CHLORIDE 0.5 GRAM PO ×2 (09:14→21:07)
[2024-11-27] MEDS: VITAMIN B-12 1000 MCG PO (09:14)
[2024-11-27] MEDS: MOBIC 7.5 MG PO (09:14)
[2024-11-27] MEDS: NEURONTIN 100 MG PO ×2 (09:14→21:06)
[2024-11-27] MEDS: VITAMIN D3 (cholecalciferol) 125 MCG PO (09:14)
[2024-11-27] MEDS: NAMENDA 10 MG PO ×2 (09:14→21:07)
[2024-11-27] MEDS: EXELON 1.5 MG PO ×2 (09:14→21:06)
[2024-11-27] MEDS: NSS (PRESERVATIVE FREE) 10 ML IV ×2 (09:15→21:07)
[2024-11-27] MEDS: PROTONIX IV 40 MG IV ×2 (09:15→21:07)
[2024-11-27] MEDS: SAMSCA 15 MG PO (09:42)
--- NOTE | 2024-11-27 10:59 | CM ---
Addendum entered by Jimmy Mederos 11/27/24 11:02:
[facility]
Report: [phone]

Plan: D/c to [facility] when stable. Ambulance transport
Original Note:
Chart reviewed. Patient recommended for skilled rehab at d/c. [facility] can accept at d/c.
Discussed w/ hospitalist, patient's sodium is still low, anticipating d/c on Saturday
CM spoke w/ patient's spouse, Owen, regarding poss d/c over the weekend.
IMM verbally reviewed, copy on chart
Patient will need ambulance transport, forms on chart
[facility]
Report:
Fax:
[2024-11-27 11:36] VITALS: BP 131/60
--- NOTE | 2024-11-27 11:40 | W.PN.NEPH.PH ---
Today's Communication / Plan
-
Samsca x 1 today
Assessment/Plan
-
Assessment
Hyponatremia (acute on chronic 116)
Coffee ground emesis
Severe lower back pain with known history of L5 fracture
Acute on chronic hyponatremia (116)/known history of SIADH
Hypertension
Dementia
Right rib fractures 367
S4 vertebral fracture
Plan
Hyponatremia:
Hypertonic saline was given with some improvement
Sodium went up to 125 and now down to 124
Can continue sodium chloride tabs
Urine osm 468 consistent with SIADH
Fluid restriction to 1200 cc daily
Sertraline and meloxicam likely exacerbating hyponatremia
Sodium 124 will give Samsca today
-
-
Date of Service: November 27, 2024
CC / HPI / ROS
-
Chief Complaint:
Hyponatremia
History of Present Illness:
Hemodynamically stable, blood pressure high side
Serum sodium up from 116-125-123 over past 24 hrs
Review of Systems:
nonOliguric 400 cc +2 times incontinent
No fevers
Demented
Labs
-
Labs:
WBC 10.7 10^3/uL (4.8-10.8) 11/27/24 06:43
RBC 3.77 10^6/uL (4.70-6.10) L 11/27/24 06:43
Hgb 10.3 g/dL (13.0-18.0) L 11/27/24 06:43
Hct 29.0 % (39.0-52.0) L 11/27/24 06:43
Plt Count 423 10^3/uL (130-400) H 11/27/24 06:43
Sodium 124 mmol/L (135-145) L 11/27/24 06:43
Potassium 4.0 mmol/L (3.5-5.1) 11/27/24 06:43
Chloride 92 mmol/L (98-107) L 11/27/24 06:43
Carbon Dioxide 24 mmol/L (22-30) 11/27/24 06:43
BUN 14 mg/dl (9-20) 11/27/24 06:43
Creatinine 0.5 mg/dL (0.7-1.3) L 11/27/24 06:43
eGFR > 60.00 11/27/24 06:43
Glucose 100 mg/dl (70-99) H 11/27/24 06:43
Calcium 9.2 mg/dl (8.4-10.2) 11/27/24 06:43
Albumin 3.8 g/dl (3.5-5.0) 11/25/24 11:30
Physical Exam
-
Vital Signs:
Vital Signs
Temp Pulse Resp BP Pulse Ox
98.3 F 76 18 131/60 95
11/27/24 11:36 11/27/24 11:36 11/27/24 11:36 11/27/24 11:36 11/27/24 11:36
Cardiovascular:: Regular rate and rhythm
Respiratory:: Bilateral: Coarse
Lung Excursion:: Normal
Abdomen:: Nontender and Soft
Bowel Sounds:: Normal
Extremity Edema:: +1: Bilateral:
Nolasco Catheter: No
--- NOTE | 2024-11-27 13:06 | W.PN.HOSP.TC ---
Today's Communication/Plan
-
started [facility]
Assessment / Plan
Assessment / Plan
IMPRESSION:
Patient is 84 years old with history of SIADH, seizure, Kathie dementia, anemia, hyponatremia who came to the ER for large episode of dark emesis.
Patient is poor historian and partner is not available at bedside today's admission, but the patient denies chest pain or shortness of breath.
Noted to have sodium level of 116.
Started on hypertonic saline, next day sodium level 125 and hypertonic saline discontinued, seen by nephrology
Sodium dropped again to 124.
Nephrology recommending [facility]
Assessment / plan:
Hyponatremia
hx hyponatremia, SIADH
Sodium 116 on presentation, started on hypertonic saline
Improved to 125, hypertonic saline
Continue serial BMP q6
4/4
Sodium still low at 124
Given samsca
Chronic back pain
abd/pel CT: No CT evidence for a new acute inflammatory process in the abdomen or pelvis within the limitations of motion artifact and the patient's arms down position.
New acute or subacute mild compression fracture of the L2 superior endplate. Stable subacute moderate compression fracture of the L5 inferior endplate. Stable healing fractures of the right
lateral seventh rib and the inferior sacrum.
Other chronic findings, as detailed above.
- continue gabapentin, and tramadol, hold meloxicam
Alzheimer's dementia
- continue memantine, risperidone, rivastigmine and sertraline
GERD/hiatal hernia
dark episode of emesis
- change pantoprazole to IV for now
- monitor for further emesis
Iron deficiency anemia
hgb 11.4, hct 31.9
- monitor CBC
CODE STATUS: DNR
DVT prophylaxis: SCD
Diet: Regular diet
Total time spent on today's encounter was 65 minutes which included time spent in counseling the patient/family regarding diagnosis and treatment plan as listed above, goals of care, and symptom management. Case was discussed with nursing staff,
specialists, and care coordinators/case management. All labs and imaging personally reviewed by me. Remainder the time spent in detailed review of previous records, lab data, imaging, and other medical provider documentation.
Anticipated Discharge: 24 - 48 hours
Subjective/Interval History
-
Date of Service: November 27, 2024
Patient seen and examined at bedside, patient awake but not oriented, had multiple bowel movement since last .
Sodium still low at 124
Nephrology recommendingSam[facility]a.
Objective Data
-
Labs:
Laboratory Results
11/27/24
06:43
WBC 10.7
Hgb 10.3 L
Hct 29.0 L
Plt Count 423 H
Sodium 124 L
Potassium 4.0
Chloride 92 L
Carbon Dioxide 24
BUN 14
Creatinine 0.5 L
Glucose 100 H
Calcium 9.2
Vital Signs:
Vital Signs
Temp Pulse Resp BP Pulse Ox
98.3 F 76 18 131/60 95
11/27/24 11:36 11/27/24 11:36 11/27/24 11:36 11/27/24 11:36 11/27/24 11:36
I&O
11/26/24 11/27/24 11/28/24
06:59 06:59 06:59
Intake Total 120 / 120 480 / 480
Output Total 400 / 400 300 / 300
Balance -280 / -280 180 / 180
Physical Exam
-
General: Well Developed, Well Nourished, No Apparent Distress and Comfortable
HEENT: Normocephalic, Atraumatic, Moist Mucous Membranes, No Ptosis, PERRLA and Nose Appears Normal
Respiratory: Clear to Auscultation and Non Labored Respirations
Cardiac: Regular Rhythm and S1/S2
Breast: Deferred by me
GI: Soft, Nontender, Nondistended and Normal Bowel Sounds
Genito-urinary: No Costovertebral Tender
Musculoskeletal: No Clubbing, No Cyanosis and No Edema
Skin: Warm
Neuro: Awake, Alert and Oriented (Not fully oriented)
Psych: Calm
Data Reviewed
-
Diagnostic Radiology: Image personally visualized and interpreted and Report Reviewed by me
CT Scan: Image personally visualized and interpreted and Report Reviewed by me
Ultrasound: Image personally visualized and interpreted and Report Reviewed by me
MRI: Image personally visualized and interpreted and Report Reviewed by me
Medical Tests (Nuc Med, Echo etc): Image personally visualized and interpreted and Report Reviewed by me
Labs: Labs Reviewed by me
Old Records: Reviewed
[2024-11-27 15:38] VITALS: BP 119/67
[2024-11-27] MEDS: ZOLOFT 100 MG PO (18:53)
[2024-11-27 19:50] VITALS: BP 133/73
[2024-11-27] MEDS: RISPERDAL 0.5 MG PO (21:07)
[2024-11-27 23:32] VITALS: BP 160/74
[2024-11-28 03:21] VITALS: BP 99/46
[2024-11-28 06:37] VITALS: BMI 25.8
[2024-11-28 07:30] VITALS: BP 143/64
[2024-11-28 08:01] LABS: Hematocrit 30.2 % (39.0-52.0); Hemoglobin 10.1 g/dL (13.0-18.0); Mean Corp Hgb Conc. 33.4 g/dL (33.0-37.0); Mean Corpuscular Hgb 26.8 pg (27.0-31.0); Mean Corpuscular Volume 80.1 fL (80.0-94.0); Mean Platelet Volume 9.4 fL (7.4-10.4); Platelet Count 369 10^3/uL (130-400); Red Blood Cell Count 3.77 10^6/uL (4.70-6.10); Red Cell Dist. Width 15.2 % (11.5-14.5); White Blood Cell Count 6.8 10^3/uL (4.8-10.8)
[2024-11-28 08:07] LABS: Blood Urea Nitrogen 10 mg/dl (9-20); Calcium 9.4 mg/dl (8.4-10.2); Carbon Dioxide 25 mmol/L (22-30); Chloride 99 mmol/L (98-107); Estimated Creatinine Clearance 89 ml/min; Glucose 93 mg/dl (70-99); Potassium 4.3 mmol/L (3.5-5.1); Sodium 132 mmol/L (135-145); eGFR > 60.00
[2024-11-28] MEDS: SODIUM CHLORIDE 0.5 GRAM PO (09:41)
[2024-11-28] MEDS: NAMENDA 10 MG PO (09:41)
[2024-11-28] MEDS: EXELON 1.5 MG PO (09:41)
[2024-11-28] MEDS: NEURONTIN 100 MG PO (09:42)
[2024-11-28] MEDS: NSS (PRESERVATIVE FREE) 10 ML IV (09:42)
[2024-11-28] MEDS: FLUSH (NSS) 1 FLUSH IV (09:42)
[2024-11-28] MEDS: VITAMIN D3 (cholecalciferol) 125 MCG PO (09:42)
[2024-11-28] MEDS: PROTONIX IV 40 MG IV (09:42)
[2024-11-28] MEDS: VITAMIN B-12 1000 MCG PO (09:42)
[2024-11-28] MEDS: ULTRAM 50 MG PO (09:52)
--- NOTE | 2024-11-28 11:13 | W.PN.HOSP.TC ---
Today's Communication/Plan
-
Discharge to rehab
Assessment / Plan
Assessment / Plan
IMPRESSION:
Patient is 84 years old with history of SIADH, seizure, Kathie dementia, anemia, hyponatremia who came to the ER for large episode of dark emesis.
Patient is poor historian and partner is not available at bedside today's admission, but the patient denies chest pain or shortness of breath.
Noted to have sodium level of 116.
Started on hypertonic saline, next day sodium level 125 and hypertonic saline discontinued, seen by nephrology
Sodium dropped again to 124.
Nephrology recommending [facility]
Sodium improved to 132.
Physical therapy recommending rehab.
Patient will be discharged to rehab
Assessment / plan:
Hyponatremia
hx hyponatremia, SIADH
Sodium 116 on presentation, started on hypertonic saline
Improved to 125, hypertonic saline
Continue serial BMP q6
4/4
Sodium still low at 124
Given samsca
4/5
Sodium improved to 132.
Physical therapy recommending rehab.
Patient will be discharged to rehab
Chronic back pain
abd/pel CT: No CT evidence for a new acute inflammatory process in the abdomen or pelvis within the limitations of motion artifact and the patient's arms down position.
New acute or subacute mild compression fracture of the L2 superior endplate. Stable subacute moderate compression fracture of the L5 inferior endplate. Stable healing fractures of the right
lateral seventh rib and the inferior sacrum.
Other chronic findings, as detailed above.
- continue gabapentin, and tramadol, hold meloxicam
Alzheimer's dementia
- continue memantine, risperidone, rivastigmine and sertraline
GERD/hiatal hernia
dark episode of emesis
- change pantoprazole to IV for now
- monitor for further emesis
Iron deficiency anemia
hgb 11.4, hct 31.9
- monitor CBC
CODE STATUS: DNR
DVT prophylaxis: SCD
Diet: Regular diet
Total time spent on today's encounter was 65 minutes which included time spent in counseling the patient/family regarding diagnosis and treatment plan as listed above, goals of care, and symptom management. Case was discussed with nursing staff,
specialists, and care coordinators/case management. All labs and imaging personally reviewed by me. Remainder the time spent in detailed review of previous records, lab data, imaging, and other medical provider documentation.
Anticipated Discharge: Today
Subjective/Interval History
-
Date of Service: November 28, 2024
Patient seen and examined at bedside, denies any chest pain or shortness of breath, no abdominal pain, no nausea, no vomiting, no diarrhea or constipation.
Objective Data
-
Labs:
Laboratory Results
11/28/24
06:49
WBC 6.8
Hgb 10.1 L
Hct 30.2 L
Plt Count 369
Sodium 132 L D
Potassium 4.3
Chloride 99
Carbon Dioxide 25
BUN 10
Creatinine 0.5 L
Glucose 93
Calcium 9.4
Vital Signs:
Vital Signs
Temp Pulse Resp BP Pulse Ox
98.3 F 64 16 143/64 98
11/28/24 07:30 11/28/24 07:30 11/28/24 07:30 11/28/24 07:30 11/28/24 09:35
I&O
11/27/24 11/28/24 11/29/24
06:59 06:59 06:59
Intake Total 480 / 480
Output Total 300 / 300 1924
Balance 180 / 180 -1924 / -1924
Physical Exam
-
General: Well Developed, Well Nourished, No Apparent Distress and Comfortable
HEENT: Normocephalic, Atraumatic, Moist Mucous Membranes, No Ptosis, PERRLA and Nose Appears Normal
Respiratory: Clear to Auscultation and Non Labored Respirations
Cardiac: Regular Rhythm and S1/S2
Breast: Deferred by me
GI: Soft, Nontender, Nondistended and Normal Bowel Sounds
Genito-urinary: No Costovertebral Tender
Musculoskeletal: No Clubbing, No Cyanosis and No Edema
Skin: Warm
Neuro: Awake, Alert and Oriented (Not fully oriented)
Psych: Calm
Data Reviewed
-
Diagnostic Radiology: Image personally visualized and interpreted and Report Reviewed by me
CT Scan: Image personally visualized and interpreted and Report Reviewed by me
Ultrasound: Image personally visualized and interpreted and Report Reviewed by me
MRI: Image personally visualized and interpreted and Report Reviewed by me
Medical Tests (Nuc Med, Echo etc): Image personally visualized and interpreted and Report Reviewed by me
Labs: Labs Reviewed by me
Old Records: Reviewed
--- NOTE | 2024-11-28 11:18 | W.DCSUMMARY ---
Discharge Summary
Discharge Data
Date of Admission: 11/25/24
Date of Discharge: 11/28/24
-
Pending Results: No
Hospital Course
IMPRESSION:
Patient is 84 years old with history of SIADH, seizure, Kathie dementia, anemia, hyponatremia who came to the ER for large episode of dark emesis.
Patient is poor historian and partner is not available at bedside today's admission, but the patient denies chest pain or shortness of breath.
Noted to have sodium level of 116.
Started on hypertonic saline, next day sodium level 125 and hypertonic saline discontinued, seen by nephrology
Sodium dropped again to 124.
Nephrology recommending [facility]
Sodium improved to 132.
Physical therapy recommending rehab.
Patient will be discharged to rehab
Assessment / plan:
Hyponatremia
hx hyponatremia, SIADH
Sodium 116 on presentation, started on hypertonic saline
Improved to 125, hypertonic saline
Continue serial BMP q6
4/
Sodium still low at 124
Given samsca
4
Sodium improved to 132.
Physical therapy recommending rehab.
Patient will be discharged to rehab
Chronic back pain
abd/pel CT: No CT evidence for a new acute inflammatory process in the abdomen or pelvis within the limitations of motion artifact and the patient's arms down position.
New acute or subacute mild compression fracture of the L2 superior endplate. Stable subacute moderate compression fracture of the L5 inferior endplate. Stable healing fractures of the right
lateral seventh rib and the inferior sacrum.
Other chronic findings, as detailed above.
- continue gabapentin, and tramadol, hold meloxicam
Alzheimer's dementia
- continue memantine, risperidone, rivastigmine and sertraline
GERD/hiatal hernia
dark episode of emesis
- change pantoprazole to IV for now
- monitor for further emesis
Iron deficiency anemia
hgb 11.4, hct 31.9
- monitor CBC
CODE STATUS: DNR
DVT prophylaxis: SCD
Diet: Regular diet
Total time spent on today's encounter was 40 minutes which included time spent in counseling the patient/family regarding diagnosis and treatment plan as listed above, goals of care, and symptom management. Case was discussed with nursing staff,
specialists, and care coordinators/case management. All labs and imaging personally reviewed by me. Remainder the time spent in detailed review of previous records, lab data, imaging, and other medical provider documentation.
Anticipated Discharge: Today
Discharge Plan
-
Patient Disposition: Group Home/SNF
Discharge Diagnosis/Procedures: Hyponatremia
Condition: Good
Diet: As tolerated
Activity: As tolerated
Blood Work: Repeat BMP after 1 week
Other Services: PT and OT
Specialty Instructions: Weigh Daily- Call MD for wt gain/loss 3 lbs overnight/5 lbs in 1 week
Referrals:
Leroy Noonan DO [Active] - in three to four weeks
Coty Rosas DO [Family Provider] -
Prescriptions:
Continued
rivastigmine tartrate 1.5 mg Capsule
1.5 mg PO BID
sertraline 100 mg Tablet
100 mg PO QPM
memantine 28 mg Capsule,Sprinkle,Er 24hr
28 mg PO QPM
pantoprazole [Protonix] 40 mg Tablet,Delayed Release (Dr/Ec)
40 mg PO BID
cholecalciferol (vitamin D3) 125 mcg (5,000 unit) Tablet
125 mcg PO DAILY Qty: 30 0RF
risperidone 0.5 mg tablet
0.5 mg PO HS
cyanocobalamin (vitamin B-12) [Vitamin B-12] 1,000 mcg Tablet
1,000 mcg PO DAILY
sodium chloride 1,000 mg Tablet,Soluble
500 mg PO BID
tramadol 50 mg tablet
50 mg PO BIDPRN PRN (Reason: breakthrough severe pain)
gabapentin 100 mg capsule
100 mg PO BID
Held
meloxicam 7.5 mg tablet
7.5 mg PO DAILY
Hold Instructions: till Repeat BMP after 1 week.
Discharge Orders:
Discharge Patient (As Directed); Ordered 11/28/24
Ordered By: Reddy Barrow
Discharge Date and Time
Print Language: UKRAINIAN
[2024-11-28 11:25] VITALS: BP 151/76
--- NOTE | 2024-11-28 14:09 | W.PN.NEPH.PH ---
Today's Communication / Plan
-
Okay for discharge from renal standpoint
Assessment/Plan
-
Assessment
Hyponatremia (acute on chronic 116)
Coffee ground emesis
Severe lower back pain with known history of L5 fracture
Acute on chronic hyponatremia (116)/known history of SIADH
Hypertension
Dementia
Right rib fractures 367
S4 vertebral fracture
Plan
Hyponatremia:
Hypertonic saline was given with some improvement
Sodium went up to 125 and now down to 124
Can continue sodium chloride tabs
Urine osm 468 consistent with SIADH
Fluid restriction to 1200 cc daily
Sertraline and meloxicam likely exacerbating hyponatremia
Sodium 132 status post [facility] okay for discharge from renal standpoint with fluid restriction
-
-
Date of Service: November 28, 2024
CC / HPI / ROS
-
Chief Complaint:
Hyponatremia
History of Present Illness:
Hemodynamically stable, blood pressure high side
Serum sodium up from 116-125-123 over past 24 hrs
Review of Systems:
nonOliguric 400 cc +2 times incontinent
No fevers
Demented
Labs
-
Labs:
WBC 6.8 10^3/uL (4.8-10.8) 11/28/24 06:49
RBC 3.77 10^6/uL (4.70-6.10) L 11/28/24 06:49
Hgb 10.1 g/dL (13.0-18.0) L 11/28/24 06:49
Hct 30.2 % (39.0-52.0) L 11/28/24 06:49
Plt Count 369 10^3/uL (130-400) 11/28/24 06:49
Sodium 132 mmol/L (135-145) L D 11/28/24 06:49
Potassium 4.3 mmol/L (3.5-5.1) 11/28/24 06:49
Chloride 99 mmol/L (98-107) 11/28/24 06:49
Carbon Dioxide 25 mmol/L (22-30) 11/28/24 06:49
BUN 10 mg/dl (9-20) 11/28/24 06:49
Creatinine 0.5 mg/dL (0.7-1.3) L 11/28/24 06:49
eGFR > 60.00 11/28/24 06:49
Glucose 93 mg/dl (70-99) 11/28/24 06:49
Calcium 9.4 mg/dl (8.4-10.2) 11/28/24 06:49
Albumin 3.8 g/dl (3.5-5.0) 11/25/24 11:30
Physical Exam
-
Vital Signs:
Vital Signs
Temp Pulse Resp BP Pulse Ox
97.8 F 61 18 151/76 97
11/28/24 11:25 11/28/24 11:25 11/28/24 11:25 11/28/24 11:25 11/28/24 11:25
Cardiovascular:: Regular rate and rhythm
Respiratory:: Bilateral: Coarse
Lung Excursion:: Normal
Abdomen:: Nontender and Soft
Bowel Sounds:: Normal
Extremity Edema:: +1: Bilateral:
Nolasco Catheter: No
[2024-11-28 15:16] VITALS: BP 160/76
== END 2024-11-28 15:54 | DRG 645 ==
LOC: 4 EAST ACU 16:06
PROVIDERS: Nurse Practitioner Family; ADMITTING PHYSICIAN General Practice; EMERGENCY PHYSICIAN Student in an Organized Health Care Education/Training Program; FAMILY PHYSICIAN Student in an Organized Health Care Education/Training Program; OTHER PHYSICIAN Specialist
DX: E22.2 Syndrome of inappropriate secretion of antidiuretic hormone (principal); I10 Essential (primary) hypertension; G89.29 Other chronic pain; G30.9 Alzheimer's disease, unspecified; K21.9 Gastro-esophageal reflux disease without esophagitis; K44.9 Diaphragmatic hernia without obstruction or gangrene; D50.9 Iron deficiency anemia, unspecified; N40.0 Benign prostatic hyperplasia without lower urinary tract symptoms; Z66 Do not resuscitate; Z79.899 Other long term (current) drug therapy
CPT/HCPCS: 74177; 80048; 80051; 80053; 83605; 85025; 85027; 85610; 85730; 86850; 86900; 86901; 93005; 96361; 96374; 97163; 99291; Q9967

== ENCOUNTER → 2024-11-30 12:53 | Outpatient (REF) | payer OTHER, MEDICARE, SELFPAY ==
[2024-11-30 13:26] LABS: % Basophils 1.1 % (0-2); % Eosinophils 1.4 % (0-6); % Immature Granulocytes 0.5 % (0-0.5); % Lymphocytes 35.1 % (20.5-51.1); % Neutrophils 48.9 % (42.2-75.2); Absolute Basophils 0.1 10^3/uL (0-0.2); Absolute Eosinophils 0.1 10^3/uL (0-0.7); Absolute Lymphocytes 2.3 10^3/uL (1.2-3.4); Absolute Monocytes 0.9 10^3/uL (0.1-0.6); Absolute Neutrophils 3.3 10^3/uL (1.4-6.5); Hematocrit 29.9 % (39.0-52.0); Hemoglobin 9.9 g/dL (13.0-18.0); Mean Corp Hgb Conc. 33.1 g/dL (33.0-37.0); Mean Corpuscular Hgb 26.4 pg (27.0-31.0); Mean Corpuscular Volume 79.7 fL (80.0-94.0); Mean Platelet Volume 9.2 fL (7.4-10.4); Nucleated Red Blood Cells % 0 % (-); Platelet Count 366 10^3/uL (130-400); Red Blood Cell Count 3.75 10^6/uL (4.70-6.10); Red Cell Dist. Width 15.3 % (11.5-14.5); White Blood Cell Count 6.6 10^3/uL (4.8-10.8)
[2024-11-30 13:50] LABS: ALT (SGPT) 17 U/L (0-50); AST (SGOT) 22 U/L (17-59); Albumin 3.5 g/dl (3.5-5.0); Alkaline Phosphatase 115 U/L (38-126); Blood Urea Nitrogen 7 mg/dl (9-20); Calcium 9.2 mg/dl (8.4-10.2); Carbon Dioxide 26 mmol/L (22-30); Chloride 98 mmol/L (98-107); Glucose 91 mg/dl (70-99); Potassium 4.4 mmol/L (3.5-5.1); Sodium 131 mmol/L (135-145); Total Bilirubin 0.6 mg/dl (0.2-1.3); Total Protein 5.9 g/dl (6.3-8.2); eGFR > 60.00
== END ==
LOC: OLABP 12:53
PROVIDERS: ATTENDING PHYSICIAN Family Medicine
DX: G81.91 Hemiplegia, unspecified affecting right dominant side (principal); E53.8 Deficiency of other specified B group vitamins; R56.9 Unspecified convulsions; G83.84 Todd's paralysis (postepileptic); G30.9 Alzheimer's disease, unspecified; E87.1 Hypo-osmolality and hyponatremia
CPT/HCPCS: 36415; 80053; 85025

== ENCOUNTER → 2024-12-08 11:57 | Outpatient (REF) | payer OTHER, MEDICARE, SELFPAY ==
[2024-12-08 12:28] LABS: % Basophils 1.2 % (0-2); % Eosinophils 1.4 % (0-6); % Immature Granulocytes 0.4 % (0-0.5); % Lymphocytes 36.8 % (20.5-51.1); % Monocytes 12.7 % (1.7-9.3); % Neutrophils 47.5 % (42.2-75.2); Absolute Basophils 0.1 10^3/uL (0-0.2); Absolute Eosinophils 0.1 10^3/uL (0-0.7); Absolute Lymphocytes 1.9 10^3/uL (1.2-3.4); Absolute Monocytes 0.6 10^3/uL (0.1-0.6); Absolute Neutrophils 2.4 10^3/uL (1.4-6.5); Hematocrit 32.9 % (39.0-52.0); Hemoglobin 10.6 g/dL (13.0-18.0); Mean Corp Hgb Conc. 32.2 g/dL (33.0-37.0); Mean Corpuscular Hgb 26.3 pg (27.0-31.0); Mean Corpuscular Volume 81.6 fL (80.0-94.0); Mean Platelet Volume 9.1 fL (7.4-10.4); Nucleated Red Blood Cells % 0 % (-); Platelet Count 407 10^3/uL (130-400); Red Blood Cell Count 4.03 10^6/uL (4.70-6.10); Red Cell Dist. Width 15.5 % (11.5-14.5); White Blood Cell Count 5.1 10^3/uL (4.8-10.8)
[2024-12-08 13:53] LABS: Blood Urea Nitrogen 6 mg/dl (9-20); Calcium 9.5 mg/dl (8.4-10.2); Carbon Dioxide 23 mmol/L (22-30); Chloride 101 mmol/L (98-107); Glucose 94 mg/dl (70-99); Potassium 4.3 mmol/L (3.5-5.1); Sodium 134 mmol/L (135-145); eGFR > 60.00
[2024-12-08 15:33] LABS: Uric Acid 3.6 mg/dl (3.5-8.5)
== END ==
LOC: REG 11:57
PROVIDERS: ATTENDING PHYSICIAN Family Medicine
DX: G81.91 Hemiplegia, unspecified affecting right dominant side (principal); E53.8 Deficiency of other specified B group vitamins; R56.9 Unspecified convulsions; G83.84 Todd's paralysis (postepileptic); E87.1 Hypo-osmolality and hyponatremia; G40.401 Other generalized epilepsy and epileptic syndromes, not intractable, with status epilepticus; F02.80 Dementia in other diseases classified elsewhere, unspecified severity, without behavioral disturbance, psychotic disturbance, mood disturbance, and anxiety; K44.9 Diaphragmatic hernia without obstruction or gangrene; J90 Pleural effusion, not elsewhere classified; R13.11 Dysphagia, oral phase; E22.2 Syndrome of inappropriate secretion of antidiuretic hormone; M62.59 Muscle wasting and atrophy, not elsewhere classified, multiple sites; N40.0 Benign prostatic hyperplasia without lower urinary tract symptoms; K21.9 Gastro-esophageal reflux disease without esophagitis; D50.9 Iron deficiency anemia, unspecified; E55.9 Vitamin D deficiency, unspecified; M54.9 Dorsalgia, unspecified; R44.1 Visual hallucinations
CPT/HCPCS: 36415; 80048; 84550; 85025; 86140

== ENCOUNTER → 2024-12-09 11:46 | Outpatient (REF) | payer OTHER, MEDICARE, SELFPAY ==
[2024-12-09 13:26] LABS: Erythrocyte Sed Rate 11 mm/hour (0-20)
== END ==
LOC: OLABP 11:46
PROVIDERS: ATTENDING PHYSICIAN Student in an Organized Health Care Education/Training Program
DX: R13.11 Dysphagia, oral phase (principal); M62.59 Muscle wasting and atrophy, not elsewhere classified, multiple sites; E22.2 Syndrome of inappropriate secretion of antidiuretic hormone; G81.91 Hemiplegia, unspecified affecting right dominant side; E53.8 Deficiency of other specified B group vitamins; R56.9 Unspecified convulsions; G83.84 Todd's paralysis (postepileptic); G30.9 Alzheimer's disease, unspecified; R44.1 Visual hallucinations; N40.0 Benign prostatic hyperplasia without lower urinary tract symptoms; G40.409 Other generalized epilepsy and epileptic syndromes, not intractable, without status epilepticus
CPT/HCPCS: 36415; 85652

== ENCOUNTER → 2024-12-22 10:28 | Outpatient (REF) | payer MEDICARE, OTHER, SELFPAY ==
[2024-12-22 12:12] LABS: % Eosinophils 1.6 % (0-6); % Immature Granulocytes 0.2 % (0-0.5); % Lymphocytes 41.4 % (20.5-51.1); % Monocytes 15.5 % (1.7-9.3); % Neutrophils 40.3 % (42.2-75.2); Absolute Basophils 0.1 10^3/uL (0-0.2); Absolute Eosinophils 0.1 10^3/uL (0-0.7); Absolute Monocytes 0.8 10^3/uL (0.1-0.6); Hematocrit 28.9 % (39.0-52.0); Hemoglobin 9.3 g/dL (13.0-18.0); Mean Corp Hgb Conc. 32.2 g/dL (33.0-37.0); Mean Corpuscular Hgb 26.2 pg (27.0-31.0); Mean Corpuscular Volume 81.4 fL (80.0-94.0); Mean Platelet Volume 9.3 fL (7.4-10.4); Nucleated Red Blood Cells % 0 % (-); Platelet Count 329 10^3/uL (130-400); Red Blood Cell Count 3.55 10^6/uL (4.70-6.10); Red Cell Dist. Width 14.9 % (11.5-14.5); White Blood Cell Count 4.9 10^3/uL (4.8-10.8)
[2024-12-22 12:26] LABS: Blood Urea Nitrogen 6 mg/dl (9-20); Calcium 9.1 mg/dl (8.4-10.2); Carbon Dioxide 27 mmol/L (22-30); Chloride 99 mmol/L (98-107); Glucose 88 mg/dl (70-99); Potassium 4.9 mmol/L (3.5-5.1); Sodium 131 mmol/L (135-145); eGFR > 60.00
== END ==
LOC: OLABPV 10:28
PROVIDERS: ATTENDING PHYSICIAN Nurse Practitioner
DX: E87.1 Hypo-osmolality and hyponatremia (principal)
CPT/HCPCS: 36415; 80048; 85025

== ENCOUNTER → 2025-01-06 11:30 | Outpatient (REF) | payer MEDICARE, OTHER, SELFPAY ==
[2025-01-06 12:56] LABS: % Basophils 1.2 % (0-2); % Eosinophils 1.4 % (0-6); % Immature Granulocytes 0.3 % (0-0.5); % Lymphocytes 34.5 % (20.5-51.1); % Neutrophils 48.6 % (42.2-75.2); Absolute Basophils 0.1 10^3/uL (0-0.2); Absolute Eosinophils 0.1 10^3/uL (0-0.7); Absolute Monocytes 0.8 10^3/uL (0.1-0.6); Absolute Neutrophils 2.9 10^3/uL (1.4-6.5); Hemoglobin 9.5 g/dL (13.0-18.0); Mean Corp Hgb Conc. 31.7 g/dL (33.0-37.0); Mean Corpuscular Hgb 25.7 pg (27.0-31.0); Mean Corpuscular Volume 81.1 fL (80.0-94.0); Mean Platelet Volume 9.8 fL (7.4-10.4); Nucleated Red Blood Cells % 0 % (-); Platelet Count 312 10^3/uL (130-400); Red Cell Dist. Width 14.9 % (11.5-14.5); White Blood Cell Count 5.9 10^3/uL (4.8-10.8)
[2025-01-06 13:08] LABS: Blood Urea Nitrogen 8 mg/dl (9-20); Calcium 9.1 mg/dl (8.4-10.2); Carbon Dioxide 25 mmol/L (22-30); Chloride 102 mmol/L (98-107); Glucose 83 mg/dl (70-99); Iron 41 ug/dl (49-181); Potassium 4.9 mmol/L (3.5-5.1); Sodium 133 mmol/L (135-145); eGFR > 60.00
[2025-01-06 13:18] LABS: Percent Saturation 11 % (20-50); Total Iron Binding Capacity 355 ug/dl (261-462)
[2025-01-06 13:40] LABS: Ferritin 23.2 ng/ml (17.9-464.0)
== END ==
LOC: OLABPV 11:30
PROVIDERS: ATTENDING PHYSICIAN Family Medicine
DX: D50.9 Iron deficiency anemia, unspecified (principal); E87.1 Hypo-osmolality and hyponatremia
CPT/HCPCS: 80048; 82728; 83540; 83550; 85025

== ENCOUNTER → 2025-02-05 10:09 | Outpatient (REF) | payer MEDICARE, OTHER, SELFPAY ==
[2025-02-05 12:00] LABS: % Eosinophils 0.7 % (0-6); % Immature Granulocytes 0.3 % (0-0.5); % Lymphocytes 40.6 % (20.5-51.1); % Monocytes 13.5 % (1.7-9.3); % Neutrophils 43.9 % (42.2-75.2); Absolute Basophils 0.1 10^3/uL (0-0.2); Absolute Lymphocytes 2.3 10^3/uL (1.2-3.4); Absolute Monocytes 0.8 10^3/uL (0.1-0.6); Absolute Neutrophils 2.5 10^3/uL (1.4-6.5); Hemoglobin 9.7 g/dL (13.0-18.0); Mean Corp Hgb Conc. 32.3 g/dL (33.0-37.0); Mean Corpuscular Hgb 25.3 pg (27.0-31.0); Mean Corpuscular Volume 78.1 fL (80.0-94.0); Mean Platelet Volume 9.4 fL (7.4-10.4); Nucleated Red Blood Cells % 0 % (-); Platelet Count 362 10^3/uL (130-400); Red Blood Cell Count 3.84 10^6/uL (4.70-6.10); Red Cell Dist. Width 15.3 % (11.5-14.5); White Blood Cell Count 5.7 10^3/uL (4.8-10.8)
[2025-02-05 13:25] LABS: Blood Urea Nitrogen 11 mg/dl (9-20); Calcium 9.4 mg/dl (8.4-10.2); Carbon Dioxide 24 mmol/L (22-30); Chloride 100 mmol/L (98-107); Glucose 93 mg/dl (70-99); Iron 51 ug/dl (49-181); Potassium 4.6 mmol/L (3.5-5.1); Sodium 129 mmol/L (135-145); eGFR > 60.00
== END ==
LOC: OLABPV 10:09
PROVIDERS: ATTENDING PHYSICIAN Family Medicine
DX: D50.9 Iron deficiency anemia, unspecified (principal); E87.1 Hypo-osmolality and hyponatremia
CPT/HCPCS: 36415; 80048; 83540; 85025

== ENCOUNTER → 2025-02-16 11:51 | Outpatient (REF) | payer MEDICARE, OTHER, SELFPAY ==
[2025-02-16 12:31] LABS: % Basophils 0.9 % (0-2); % Eosinophils 1.1 % (0-6); % Immature Granulocytes 0.6 % (0-0.5); % Lymphocytes 45.6 % (20.5-51.1); % Neutrophils 38.8 % (42.2-75.2); Absolute Basophils 0.1 10^3/uL (0-0.2); Absolute Eosinophils 0.1 10^3/uL (0-0.7); Absolute Lymphocytes 2.9 10^3/uL (1.2-3.4); Absolute Monocytes 0.8 10^3/uL (0.1-0.6); Absolute Neutrophils 2.5 10^3/uL (1.4-6.5); Hematocrit 32.4 % (39.0-52.0); Hemoglobin 10.4 g/dL (13.0-18.0); Mean Corp Hgb Conc. 32.1 g/dL (33.0-37.0); Mean Corpuscular Hgb 25.7 pg (27.0-31.0); Mean Platelet Volume 9.4 fL (7.4-10.4); Nucleated Red Blood Cells % 0 % (-); Platelet Count 355 10^3/uL (130-400); Red Blood Cell Count 4.05 10^6/uL (4.70-6.10); Red Cell Dist. Width 15.9 % (11.5-14.5); White Blood Cell Count 6.3 10^3/uL (4.8-10.8)
[2025-02-16 13:41] LABS: Blood Urea Nitrogen 9 mg/dl (9-20); Calcium 9.5 mg/dl (8.4-10.2); Carbon Dioxide 26 mmol/L (22-30); Chloride 100 mmol/L (98-107); Glucose 88 mg/dl (70-99); Iron 43 ug/dl (49-181); Potassium 4.6 mmol/L (3.5-5.1); Sodium 131 mmol/L (135-145); eGFR > 60.00
== END ==
LOC: OLABPV 11:51
PROVIDERS: ATTENDING PHYSICIAN Family Medicine
DX: D50.9 Iron deficiency anemia, unspecified (principal); E87.1 Hypo-osmolality and hyponatremia
CPT/HCPCS: 36415; 80048; 83540; 85025

== ENCOUNTER → 2025-03-24 09:41 | Outpatient (REF) | payer MEDICARE, OTHER, SELFPAY ==
[2025-03-24 10:37] LABS: Hematocrit 33.8 % (39.0-52.0); Hemoglobin 11.2 g/dL (13.0-18.0); Mean Corp Hgb Conc. 33.1 g/dL (33.0-37.0); Mean Corpuscular Volume 79.9 fL (80.0-94.0); Nucleated Red Blood Cells % 0 % (-); Platelet Count 343 10^3/uL (130-400); Red Cell Dist. Width 16.5 % (11.5-14.5)
[2025-03-24 11:05] LABS: Blood Urea Nitrogen 7 mg/dl (9-20); Calcium 9.1 mg/dl (8.4-10.2); Carbon Dioxide 25 mmol/L (22-30); Chloride 101 mmol/L (98-107); Glucose 93 mg/dl (70-99); Iron 59 ug/dl (49-181); Potassium 4.7 mmol/L (3.5-5.1); Sodium 131 mmol/L (135-145); eGFR > 60.00
[2025-03-24 11:39] LABS: Ferritin 31.2 ng/ml (17.9-464.0)
== END ==
LOC: OLABPV 09:41
PROVIDERS: ATTENDING PHYSICIAN Family Medicine
DX: E50.9 Vitamin A deficiency, unspecified (principal); E87.1 Hypo-osmolality and hyponatremia; D50.9 Iron deficiency anemia, unspecified
CPT/HCPCS: 36415; 80048; 82728; 83540; 85025

== ENCOUNTER → 2025-08-24 10:05 | Outpatient (REF) | payer MEDICARE, OTHER, SELFPAY ==
[2025-08-24 10:31] LABS: Hematocrit 37.7 % (39.0-52.0); Hemoglobin 12.7 g/dL (13.0-18.0); Mean Corp Hgb Conc. 33.7 g/dL (33.0-37.0); Mean Corpuscular Volume 84.2 fL (80.0-94.0); Nucleated Red Blood Cells % 0 % (-); Platelet Count 305 10^3/uL (130-400); Red Cell Dist. Width 14.2 % (11.5-14.5)
[2025-08-24 10:42] LABS: Blood Urea Nitrogen 12 mg/dl (9-20); Calcium 9.2 mg/dl (8.4-10.2); Carbon Dioxide 25 mmol/L (22-30); Chloride 99 mmol/L (98-107); Glucose 85 mg/dl (70-99); Iron 127 ug/dl (49-181); Potassium 4.8 mmol/L (3.5-5.1); Sodium 129 mmol/L (135-145); eGFR > 60.00
[2025-08-24 10:51] LABS: Total Iron Binding Capacity 304 ug/dl (261-462)
[2025-08-24 11:15] LABS: Ferritin 30.8 ng/ml (17.9-464.0)
== END ==
LOC: OLABPV 10:05
PROVIDERS: ATTENDING PHYSICIAN Family Medicine
DX: D50.9 Iron deficiency anemia, unspecified (principal); E87.1 Hypo-osmolality and hyponatremia
CPT/HCPCS: 36415; 80048; 82728; 83540; 83550; 85025